=== PATIENT | female | born 1990 | race Caucasian/White ===

== ENCOUNTER 2019-10-05 11:41 | Emergency (ER) | payer SELFPAY ==
[2019-10-05 11:55] VITALS: BP 133/79; PULSE 89; RESP 18; TEMP 37.5; O2SAT 100
--- NOTE | 2019-10-05 12:00 | ED.URI ---
HPI - URI/Sore Throat General Chief Complaint: Upper Respiratory Infection Stated Complaint: COUGH/SORE THROAT/EAR PN Time Seen by Provider: 10/05/19 12:00 Source: patient and RN notes reviewed Mode of arrival: ambulatory Limitations: no limitations History of Present Illness HPI Narrative: 28-year-old female presents with concern for sore throat, cough, sinus congestion, rhinorrhea, fever, sweats, chills, body aches, bilateral ear pain that started on Friday morning. Reports she has been taking [id number] Sudafed and Robitussin elicited complaint: cough Related Data Allergies Allergy/AdvReac Type Severity Reaction Status Date / Time fluconazole [From Diflucan] Allergy Rash Verified 10/05/19 12:01 Review of Systems Review of Systems: Narrative: CONSTITUTIONAL: Reports malaise, chills, sweats, and fever. EYES: Denies visual changes, redness, or discharge. ENT: Reports rhinorrhea, congestion, otalgia and sore throat. CARDIOVASCULAR: Denies chest pain, palpitations, or edema. RESPIRATORY: Reports cough. Denies dyspnea. GASTROINTESTINAL: Denies abdominal pain, nausea, vomiting, diarrhea SKIN: Denies rash or itching. MUSCULOSKELETAL: Reports myalgia. NEUROLOGIC: Reports headache. All systems reviewed & are unremarkable except as noted in HPI and below PMFSH Comments At time of signature, agree with nursing past medical, surgical, social and family history. There is no relevant family history pertinent to the presenting complaint Exam Narrative: Exam Narrative: GENERAL: Well-appearing, well-nourished, and in no acute distress. HEAD: Normocephalic EYES: PERRLA, conjunctivae clear ENT: Nares clear, turbinates edematous and erythematous, clear discharge. Mucous membranes moist. TM pearly lewis with dull light reflex bilaterally; no tragal tenderness. Oropharynx erythematous without lesions. Tonsils not enlarged and without exudate, no drooling, no hoarseness, no trismus. NECK: Supple. No lymphadenopathy CHEST: Clear to auscultation, breath sounds equal. No wheezing, rhonchi, rales, or stridor. No respiratory distress, speaks in full sentences. Cough noted HEART: Regular rate and rhythm. No murmur heard. Normal peripheral pulses. SKIN: Warm, dry, no rash. NEURO: Alert and oriented x3. PSYCH: Normal mood and affect Course Course Emergency Course: Patient is aware of diagnosis, understands and agrees to treatment plan. Anticipatory guidance given. Patient agrees to follow-up as directed and is aware of reasons to seek care at the emergency department. Portions of this record may have been created with voice recognition software Vital Signs Vital signs: Vital Signs Temperature 99.5 F 10/05/19 11:55 Pulse Rate 89 10/05/19 11:55 Respiratory Rate 18 10/05/19 11:55 Blood Pressure 133/79 10/05/19 11:55 Pulse Oximetry 100 10/05/19 11:55 Temperature 99.5 F 10/05/19 11:55 Pulse Rate 89 10/05/19 11:55 Respiratory Rate 18 10/05/19 11:55 Blood Pressure 133/79 10/05/19 11:55 Pulse Oximetry 100 10/05/19 11:55 Reviewed. MDM - URI/Sore Throat MDM Narrative Medical decision making narrative: Differential diagnosis considered: Strep pharyngitis, allergic rhinitis, upper respiratory tract infection, sinusitis, rhinosinusitis, nasopharyngitis. viral pharyngitis, otitis media, otitis externa, pneumonia, bronchitis, viral cough syndrome, viral syndrome, and influenza. Exam findings show no acute concerns or changes; patient is non-toxic appearing and is in no distress. Patient is appropriate for outpatient treatment and follow-up. Lab Data Attestation: I reviewed the patient's lab results. Labs: Influenza A Screen Positive Reference Range: Negative Influenza B Screen Negative Reference Range: Negative Strep Screen Presumptive Negative *(Reference Range: Negative)* Critical Care Time Critical Care Time Critical Care Time: No Discharg
== END 2019-10-05 12:17 | disposition home or self-care (01) ==
PROVIDERS: Emergency Provider Nurse Practitioner
DX: J10.1 Influenza due to other identified influenza virus with other respiratory manifestations (principal)
CPT/HCPCS: 87081; 87804; 87880; 99213; G0463

== ENCOUNTER 2021-08-06 12:32 | Emergency (ER) | payer SELFPAY ==
--- NOTE | ~2021-08-06 | XR_ITS ---
XR ankle RT min 3V 08/06/2021 12:59 INDICATION: Right ankle pain PROCEDURE: 4 views right ankle COMPARISON: No prior studies for comparison. FINDINGS: Fracture, dislocation or subluxation is not identified. Ankle mortise intact. The soft tiss ues appear within normal limits. No foreign bodies are identified. IMPRESSION: 1: NO ACUTE BONE OR JOINT ABNORMALITY IDENTIFIED. Reviewed, dictated and finalized at location A. D INSTRUCTOR
[2021-08-06 12:45] VITALS: BP 144/84; PULSE 82; RESP 18; TEMP 36.2; O2SAT 99
--- NOTE | 2021-08-06 13:02 | ED.LOWEXIN ---
HPI - Extremity Injury (Lower) General Chief Complaint: Extremity Injury, Lower Stated Complaint: rt ankle injury Time Seen by Provider: 08/06/21 12:45 Source: patient and RN notes reviewed Mode of arrival: ambulatory Limitations: no limitations History of Present Illness HPI Narrative: 30-year-old female presents to the [facility] with complaints of right ankle pain since yesterday. Patient reports that she stepped in a hole and twisted her ankle. Has taken Tylenol Motrin. Related Data Allergies Allergy/AdvReac Type Severity Reaction Status Date / Time fluconazole [From Diflucan] Allergy Rash Verified 08/06/21 12:48 Review of Systems Review of Systems: All systems reviewed & are unremarkable except as noted in HPI and below Constitutional: Constitutional: Reports no additional constitutional complaints, Denies chills and Denies fever(s) Eyes: Eyes: Reports no additional eye complaints ENT: Reports system reviewed and no additional complaints, except as documented Cardiovascular: Cardiovascular: Reports no additional cardiovascular complaints Respiratory: Respiratory: Reports no additional respiratory complaints Musculoskeletal: Musculoskeletal: Reports as per HPI and Reports arthralgias (Right lateral and medial ankle) Integumentary/Breasts: Skin/Breast: Reports system reviewed and no additional complaints, except as docu and Denies rash Neurologic: Reports system reviewed and no additional complaints, except as documented, Denies vertigo, Denies dizziness, Denies syncope, Denies focal weakness, Denies numbness and Denies weakness Psychiatric: Psychiatric: Reports no additional psychiatric complaints Allergic/Immunologic: Allergic/Immunologic: Reports no additional allergic/immunologic complaints PMFSH Past Medical History Medical History (Updated 08/06/21 @ 15:30 by Mayra Pritchett) No significant medical problems Surgical History Surgical History (Updated 08/06/21 @ 15:30 by Mayra Pritchett) No significant past surgical history Social History Social History (Updated 08/06/21 @ 15:30 by Mayra Pritchett) Living arrangements: with family Occupation/Education: occupation Additional occupation/education comments: [employer] Gender identity (if verbalized by the patient): Female Comments At the time of my signature, I reviewed and agree with the nursing past medical, surgical, social, and family history. There is no relevant family history pertinent to the patient complaint. Exam Const: General: healthy appearing, no acute distress and alert Nutritional Appearance: well nourished and obese Orientation/consciousness: patient oriented x3 Limitations: no limitations HENMT: Head: normal to inspection Ears: external ears normal Eyes: Pupils: Equal, round and reactive pupils present Neck: Neck: normal visual inspection, no lymphadenopathy and no meningeal signs Chest: Chest palpation & inspection: normal inspection of the chest Resp: Effort & Inspection: normal respiratory effort Auscultation: clear to auscultation bilaterally Cardio: Rate: regular rate Rhythm: regular rhythm Back/Spine/Pelvis: Back: no CVA tenderness Skin: General skin exam: normal color Rashes: no rashes Wounds: no wounds Neuro: General: patient oriented x3, moves all extremities, no meningeal signs and no focal motor deficits Speech: normal speech Gait exam (Neuro): Normal gait present (Was able to walk out of clinic with a steady gait) Extrem: General: normal to inspection, full ROM and capillary refill normal Right lower extremity: ankle Details: tenderness Location: of the lateral malleolus and of the medial malleolus, no edema and normal ROM; no swelling, no unusual warmth and no ecchymosis Psych: Appearance: grossly normal and well kempt Mental Status: mental status grossly normal Affect: normal affect Attitude: cooperative Thought content: Yes Normal thought content present Course
== END 2021-08-06 13:28 | disposition home or self-care (01) ==
PROVIDERS: Emergency Provider Nurse Practitioner
DX: S93.401A Sprain of unspecified ligament of right ankle, initial encounter (principal); S96.911A Strain of unspecified muscle and tendon at ankle and foot level, right foot, initial encounter; X50.9XXA Other and unspecified overexertion or strenuous movements or postures, initial encounter
CPT/HCPCS: 73610; 99213; G0463

== ENCOUNTER 2025-04-14 09:27 | Observation (INO) | payer OTHER, SELFPAY ==
[2025-04-14] VITALS (14 sets, daily range): BP systolic 124–128; BP diastolic 48–70; PULSE 94–117; O2SAT 96–98
--- OUTSIDE RECORDS SUMMARY | 2025-04-14 09:41 | XMS_ITS | Encounter Summary ---
Author Organization [facility] Address [address] [place] [address] Care Team Providers Care Informix Developer Name Role Phone Ryan Pritchard MD Primary Care Provider [phone] Encounter Details Date Type Department Care Team (Late st Contact Info) Description 01/14/2001 Outpatient Historical [facility] [address] [place] [address] Hayley Barth Social History Tobacco Use Types Packs/Day Years Used Date Smoking Tobacco: Never Assessed Comments Unknown Sex and Gender Information Value Date Recorded Sex Assigned at Not on file Legal Sex Female 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 [address] [place] [address] PCP - General Family Practice 02/02/10 documented as of this encounter
--- OUTSIDE RECORDS SUMMARY | 2025-04-14 09:41 | XMS_ITS | Encounter Summary ---
Author Organization [facility] Address 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
--- OUTSIDE RECORDS SUMMARY | 2025-04-14 09:41 | XMS_ITS | Encounter Summary ---
Author Organization [facility] Address [address] [place] [address] Care Team Providers Care Business Development Coordinator Name Role Phone Ryan Pritchard MD Primary Care Provider [phone] Encounter Details Date Type Department Care Team (Late st Contact Info) Description 11/10/2003 Outpatient Historical [facility] - [place] [address] [place] [address] Magen Ag, DO * Social History Tobacco Use Types Packs/Day Years Used Date Smoking Tobacco: Never Assessed Comments Unknown Sex and Gender Information Value Date Recorded Sex Assigned at Not on file Legal 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
--- OUTSIDE RECORDS SUMMARY | 2025-04-14 09:41 | XMS_ITS | Encounter Summary ---
Author Organization [facility] Address [address] [place] [address] Care Team Providers Care Heel Buffer Name Role Phone Ryan Pritchard MD Primary Care Provider [phone] Encounter Details Date Type Department Care Team (Late st Contact Info) Description 10/05/2002 Outpatient Historical [facility] Primary Care - [place] [address] [place] [address] Magen Ag, DO * Social History Tobacco Use Types Packs/Day Years Used Date Smoking Tobacco: Never Assessed Comments Unknown Sex and Gender Information Value Date Recorded Sex Assigned at Not on file Legal Sex Female 4:[address]FFIC CONTROL TECHNICIAN Gender Identity Not on file Sexual Orientation Not on file documented as of this encounter Plan of Treatment Not on file documented as of this encounter Visit Diagnoses Not on filedocumented in this encounter Care Teams Heel Buffer Relationship Specialty Start Date End Date Ryan Pritchard MD [address] [place] [phone] PCP - General Family Practice 02/02/10 documented as of this encounter
--- OUTSIDE RECORDS SUMMARY | 2025-04-14 09:41 | XMS_ITS | Encounter Summary ---
Author Organization [facility] Address [address] [place] [address] Care Team Providers Care Urban Planning Professor Name Role Phone Ryan Pritchard MD Primary Care Provider [phone] Encounter Details Date Type Department Care Team (Late st Contact Info) Description 12/21/2002 Outpatient Historical [facility] Primary Care - [place] [address] [place] [address] Magen Ag, DO * Social History Tobacco Use Types Packs/Day Years Used Date Smoking Tobacco: Never Assessed Comments Unknown Sex and Gender Information Value Date Recorded Sex Assigned at Not on file Legal Sex Female 4:47 AM POLITICAL ADVISOR Gender Identity Not on file Sexual Orientation Not on file documented as of this encounter Plan of Treatment Not on file documented as of this encounter Visit Diagnoses Not on filedocumented in this encounter Care Teams Urban Planning Professor Relationship Specialty Start Date End Date Ryan Pritchard MD [address] [place] [phone] PCP - General Family Practice 02/02/10 documented as of this encounter
--- OUTSIDE RECORDS SUMMARY | 2025-04-14 09:41 | XMS_ITS | Clinical Summary ---
Author Organization [facility] Address [address] [place] [address] Care Team Providers Care Window/Distribution Clerk Name Role Phone Unavailable Primary Care Provider Unavailabl e Source Comments [facility],non-owned Affiliates and Associated Physician Practices is amultiple site organization consisting of ambulatory clinics and hospital sitesin [place], [place], [place] and [place]. This disclosure is being madepursuant to the Care Everywhere program and may not contain all information available regarding this patient. Last updated 18.[facility] Allergies Active Allergy Reactions Criticality Noted Date Comments Fluconazole 03/10/2009 Medications * Be aware that medications may not be up to date on this document. Alwaysverify current medications with the patient. amoxicillin (AMOXIL) 500 MG tablet Take 1 Tab by mouth 2 times daily. 20 0 03/04/2009 Active cetirizine (ZYRTEC) 10 MG tablet Take 10 mg by mouth daily. Active ciprofloxacin (CIPRO) 500 MG tablet Take 1 Tab by mouth every 12 hours. 20 0 03/11/2009 Active neomycin-polymy quinton-hc (CORTISPORIN) 3.5-38607-8 otic suspension Instill 4 Drops into right ear 4 times daily. 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 03/07/2025 resulting from ass isted reproductive technology in second trimester: IUI 03/07/2025 Allergic rhinitis 03/10/2009 Overview (05/18/2015): Asthma 03/10/2009 Estimated Date of Delivery Comme nts Yes 07/18/2025 Based on Ultraso und Encounters Date Type Department Care Team Description 04/04/2025 2:30 PM CDT - 04/04/2025 11:59 PM CDT Hospital Encounter [facility] [address] [place] [address] Joanna Mendiola MD Discharge Disposition: Home or Self Care 03/07/2025 9:00 AM CDT - 03/07/2025 11:59 PM CDT Hospital Encounter [facility] [address] [place] [address] Stephy Wilson MD Discharge Disposition: Home or Self Care from Last 3 Months Social History Tobacco Use Types Packs/Day Years Used Date Smoking Tobacco: Never Alcohol Use Standard Drinks/Week Comments No 0 (1 standard drink = 0.6 oz pur e alcohol) Estimated Date of Delivery Comme nts Yes 07/18/2025 Based on Ultraso und Sex and Gender Information Value Date Recorded Sex Assigned at Not on file Legal Sex Female 4:23 AM HOUSE SITTER Gender Identity Not on file Sexual Orientation Not on file Last Filed Vital Signs Vital Sign Reading Time Taken Comments Blood Pressure 108/78 03/11/2009 8:38 AM CDT Pulse 96 03/11/2009 8:38 AM CDT Temperature 36.5 C (97.7 F) 03/11/2009 8:38 AM CDT Respiratory Rate - - Oxygen Saturation - - Inhaled Oxygen Concentration - - Weight 106.9 kg (235 lb 9.6 oz) 03/11/2009 8:38 AM CDT Height 162.6 cm (5' 4) 03/11/2009 8:38 AM CDT Body Mass Index 40.44 03/11/2009 8:38 AM CDT Plan of Treatment Upcoming Encounters Date Type Department Care Team (Late st Contact Info) Description 05/02/2025 2:30 PM CDT Appointment [facility] [address] [place] [phone] Health Maintenance Due Date Last Done Comments HIV SCREENING 12/28/2003 HEPATITIS C SCREENING 12/23/2006 DTAP/TDAP/TD VACCINES (1 - Tdap) 12/28/2007 HEPATITIS B VACCINE (1 of 3 - 19+ 3-dose series) 12/28/2007 PNEUMOCOCCAL VACCINE (1 of 2 - PCV) 12/28/2007 PAP SMEAR 2009 HPV VACCINE (1 - 3-dose SCDM series) 12/28/2015 COVID-19 VACCINE (3 - 2023-2 5 season) 2024 06/16/2021, 05/26/2021 DEPRESSION SCREENING 08/18/2024 OB-ONE HOUR GLUCOSE 04/11/2025 INFLUENZA VACCINE (#1) 2025 OB-TDAP CURRENT 04/18/2025 OB-RHOGAM INJECTION 04/25/2025 Respiratory Syncytial Virus (RSV) Vaccine Pt: or over 60 yrs (1 - Risk 1-dose series) 05/23/2025 ZOSTER VACCINE (1 of 2) 2038 HIB VACCINE Aged Out No longer eligi ble based on patient's age to complete this topic MENINGOCOCCAL (Group B) VACCINE SHARED DECISION-MAKING Aged Out No longer eligible based on patient's age to complete this topic MENINGOCOCCAL GROUPS A/C/Y/W VACCINE Aged Out No longer eligible b ased on patient's age to complete this topic Procedures Procedure Name Priority Date/Time Associated Diagnosis Comments SONOGRAM - COMPLETE Routine 04/04/2025 2:47 PM CDT Advanced maternal age, 1st , second trimester (HCC) resulting from assisted reproductive technology in second trimester: IUI Encounter for follow-up ultrasound of anatomy (HCC) Encounter for ultrasound to assess growth (HCC) SONOGRAM - COMPLETE Routine 03/07/2025 9:15 AM CDT Encounter for anatomic survey (HCC) resulting from in vitro fertilization in second trimester (HCC) Obesity affecting in second trimester, unspecified obesity type (HCC) Multigravida of advanced maternal age in second trimester (HCC) from Last 3 Months Results * Sonogram - Complete (04/04/2025 2:47 PM CDT) Only the most recent of2 resultswithin the time period is included. Linked Results Indication ======== Encounter for screening for malformations resulting from assisted reproductive technique Advanced maternal age (AMA), primigravida Obesity complicating , Class 3 - BMI of 40.0 or greater Maternal Assessment Physical Exam Height 163 cm, 5 ft 4 in. Weight 132 kg, 290 lb. Initial weight 131 kg, 289 lb. BMI 49.78 kg/m . Initial BMI 49.61 kg/m . Weight gain 0 kg, 1 lb Method ====== Transabdominal ultrasound. View: limited secondary to challenging acoustic properties ========= Huang . Number of fetuses: 1 Dating ====== Date Details Gest. age SHILPA Stated SHILPA 25 w + 0 d 07/18/2025 U/S 04/04/2025 based upon AC, BPD, Femur, HC 26 w + 4 d 07/07/2025 Assigned dating based on stated SHILPA, selected on 03/07/2025 25 w + 0 d 07/18/2025 General Evaluation Cardiac activity present. FHR 138 bpm. Presentation: breech Placenta: Placental site: anterior Umbilical cord: 3-vessel cord and normal placental cord insertion site were documented previously Amniotic fluid: Amount of AF: normal. MVP 4.5 cm Biometry BPD 66.1 mm 26w 5d 90% Hadlock HC 242.1 mm 26w 2d 75% Hadlock Cerebellum tr 29.4 mm 88% [place] AC 227.2 mm 27w 1d 93% Hadlock Femur 47.5 mm 25w 6d 64% Hadlock Humerus 45.7 mm 27w 0d 94% Martinez HC / AC 1.07 Weight Calculation: EFW 954 g 95% Hadlock EFW (lb,oz) 2 lb 2 oz EFW by Hadlock ([id number]) Head / Face / Neck Biometry: CM 8.7 mm 97% Nicolaides LGA Growth Overview Exam date GA BPD (mm) HC (mm) AC (mm) FL (mm) HL (mm) EFW (g) 03/07/2025 21w 0d 51.5 73% 183.6 29% 171.9 79% 39.7 92% 35.2 82% 487 95% 04/04/2025 25w 0d 66.1 90% 242.1 75% 227.2 93% 47.5 64% 45.7 94% 954 95% Anatomy The following structures appear normal: Head / Neck Cranium. Midline falx. Cavum septi pellucidi. Cerebellum. Cisterna magna. Thalami. Face Lips. Profile. Nose. Nasal bone. Orbits. Heart / Thorax LVOT view. 3-vessel view. Aortic arch view. Abdomen Stomach. Kidneys. Bladder. Spine Cervical spine. Thoracic spine. Lumbar spine. Sacral spine. Extremities / Skeleton Hands. Left arm. Right foot. The following structures could not be adequately visualized: Heart / Thorax RVOT view. 6-[id number]-wfklqjw view. Bicaval view. Ductal arch view. Great vessels. Right lung. Left lung. Diaphragm. The following structures were documented previously: Head / Neck Lateral ventricles. Choroid plexus. Heart / Thorax 4-chamber view. Situs. Abdomen Cord insertion. Bowel. Genitals. Extremities / Skeleton Arms. Right arm. Legs. Left foot. Impression ========= 1) Huang gestation, 25w0d 2) Today's biometry may be evidence of accelerated growth 3) The amniotic fluid volume is within normal limits 4) No abnormalities have been detected on anatomic survey 5) Imaging of a portion of the anatomy (see list above) was again suboptimal, secondary to maternal acoustic properties and positioning Comment ======== ultrasound alone cannot detect all structural, genetic, or functional , placental, or maternal abnormalities Follow-up ======== Follow-up ultrasound in ~4 weeks to complete the anatomic survey and reevaluate growth Coding ====== Diagnoses O09.512: Supervision of elderly primigravida Procedures 79230: US Preg Uterus Follow Up New[place]ired PACS Anatomical Region Laterality Modality Other 04/04/2025 2:47 PM CDT Foster Dudley MD [facility] ORDERABLES Edited Result - Final from Last 3 Months Insurance COUNTS INCLUDE 234 BEDS AT THE [facility] Address: [facility] [id number] [place] [phone]
--- OUTSIDE RECORDS SUMMARY | 2025-04-14 09:41 | XMS_ITS | Encounter Summary ---
Author Organization [facility] Address [address] [place] [address] Care Team Providers Care Ship Joiner Name Role Phone Ryan Pritchard MD Primary Care Provider [phone] Encounter Details Date Type Department Care Team (Late st Contact Info) Description 10/29/2000 Outpatient Historical 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 [place] [address] PCP - General Family Practice 02/02/10 documented as of this encounter
--- OUTSIDE RECORDS SUMMARY | 2025-04-14 09:41 | XMS_ITS | Encounter Summary ---
Author Organization [facility] Address 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
--- OUTSIDE RECORDS SUMMARY | 2025-04-14 09:41 | XMS_ITS | Encounter Summary ---
Author Organization [facility] Address [address] [place] [address] Care Team Providers Care Pilot Boat Captain Name Role Phone Ryan Pritchard MD Primary Care Provider [phone] Encounter Details Date Type Department Care Team (Late st Contact Info) Description 12/09/2002 Outpatient Historical [facility] Primary Care - [place] [address] [place] [address] Magen Ag, DO * Social History Tobacco Use Types Packs/Day Years Used Date Smoking Tobacco: Never Assessed Comments Unknown Sex and Gender Information Value Date Recorded Sex Assigned at Not on file Legal Sex Female 4:47 AM VOUCHER EXAMINER Gender Identity Not on file Sexual Orientation Not on file documented as of this encounter Plan of Treatment Not on file documented as of this encounter Visit Diagnoses Not on filedocumented in this encounter Care Teams Pilot Boat Captain Relationship Specialty Start Date End Date Ryan Pritchard MD [address] [place] [address] PCP - General Family Practice 02/02/10 documented as of this encounter
--- OUTSIDE RECORDS SUMMARY | 2025-04-14 09:41 | XMS_ITS | Encounter Summary ---
Author Organization [facility] Address [address] [place] [address] Care Team Providers Care Petroleum Refinery Laborer Name Role Phone Ryan Pritchard MD Primary Care Provider [phone] Encounter Details Date Type Department Care Team (Late st Contact Info) Description 03/23/2002 Outpatient Historical [facility] Primary Care - [place] [address] [place] [address] Magen Ag, DO * Social History Tobacco Use Types Packs/Day Years Used Date Smoking Tobacco: Never Assessed Comments Unknown Sex and Gender Information Value Date Recorded Sex Assigned at Not on file Legal Sex Female 4:47 AM DUMP GRADER Gender Identity Not on file Sexual Orientation Not on file documented as of this encounter Plan of Treatment Not on file documented as of this encounter Visit Diagnoses Not on filedocumented in this encounter Care Teams Petroleum Refinery Laborer Relationship Specialty Start Date End Date Ryan Pritchard MD [address] [place] [address] PCP - General Family Practice 02/02/10 documented as of this encounter
--- OUTSIDE RECORDS SUMMARY | 2025-04-14 09:41 | XMS_ITS | Encounter Summary ---
Author Organization [facility] Address [address] [place] [address] Care Team Providers Care Brewery Worker Name Role Phone Ryan Pritchard MD Primary Care Provider [phone] Encounter Details Date Type Department Care Team (Late st Contact Info) Description 08/01/2003 Outpatient Historical [facility] Primary Care - [place] [address] [place] [phone] No Santos MD NO ADDRESS ON FILE Social History Tobacco Use Types Packs/Day Years Used Date Smoking Tobacco: Never Assessed Comments Unknown Sex and Gender Information Value Date Recorded Sex Assigned at Not on file Legal Sex Female 4:[address] TECHNICIAN Gender Identity Not on file Sexual Orientation Not on file documented as of this encounter Plan of Treatment Not on file documented as of this encounter Visit Diagnoses Not on filedocumented in this encounter Care Teams Brewery Worker Relationship Specialty Start Date End Date Ryan Pritchard MD [address] [place] [address] PCP - General Family Practice 02/02/10 documented as of this encounter
--- OUTSIDE RECORDS SUMMARY | 2025-04-14 09:41 | XMS_ITS | Encounter Summary ---
Author Organization [facility] Address [address] [place] [address] Care Team Providers Care Weight Analyst Name Role Phone Ryan Pritchard MD Primary Care Provider [phone] Encounter Details Date Type Department Care Team (Late st Contact Info) Description 07/23/2004 Outpatient Historical [facility] Primary Care - [place] [address] [place] [address] Magen Ag, DO * Social History Tobacco Use Types Packs/Day Years Used Date Smoking Tobacco: Never Assessed Comments Unknown Sex and Gender Information Value Date Recorded Sex Assigned at Not on file Legal Sex Female 4:47 AM ACCESS SPEC Gender Identity Not on file Sexual Orientation Not on file documented as of this encounter Plan of Treatment Not on file documented as of this encounter Visit Diagnoses Not on filedocumented in this encounter Care Teams Weight Analyst Relationship Specialty Start Date End Date Ryan Pritchard MD [address] [place] [address] PCP - General Family Practice 02/02/10 documented as of this encounter
--- OUTSIDE RECORDS SUMMARY | 2025-04-14 09:41 | XMS_ITS | Encounter Summary ---
Author Organization [facility] Address [address] [place] [address] Care Team Providers Care Clinical Investigator Name Role Phone Ryan Pritchard MD Primary Care Provider [phone] Encounter Details Date Type Department Care Team (Late st Contact Info) Description 03/15/2002 Outpatient Historical [facility] Primary Care - [place] [address] [place] [address] Magen Ag, DO * Social History Tobacco Use Types Packs/Day Years Used Date Smoking Tobacco: Never Assessed Comments Unknown Sex and Gender Information Value Date Recorded Sex Assigned at Not on file Legal Sex Female 4:47 AM PACKAGING TECH Gender Identity Not on file Sexual Orientation Not on file documented as of this encounter Plan of Treatment Not on file documented as of this encounter Visit Diagnoses Not on filedocumented in this encounter Care Teams Clinical Investigator Relationship Specialty Start Date End Date Ryan Pritchard MD [address] [place] [address] PCP - General Family Practice 02/02/10 documented as of this encounter
--- OUTSIDE RECORDS SUMMARY | 2025-04-14 09:41 | XMS_ITS | Encounter Summary ---
Author Organization [facility] Address [address] [place] [address] Care Team Providers Care Automotive Professional Name Role Phone Ryan Pritchard MD Primary Care Provider [phone] Encounter Details Date Type Department Care Team (Late st Contact Info) Description 12/05/[address] [facility] Primary Care - [place] [address] [place] [address] Magen Ag, DO * Social History Tobacco Use Types Packs/Day Years Used Date Smoking Tobacco: Never Assessed Comments Unknown Sex and Gender Information Value Date Recorded Sex Assigned at Not on file Legal Sex Female 4:47 AM MANAGER INTERMEDIATE Gender Identity Not on file Sexual Orientation Not on file documented as of this encounter Plan of Treatment Not on file documented as of this encounter Visit Diagnoses Not on filedocumented in this encounter Care Teams Automotive Professional Relationship Specialty Start Date End Date Ryan Pritchard MD [address] [place] [address] PCP - General Family Practice 02/02/10 documented as of this encounter
--- OUTSIDE RECORDS SUMMARY | 2025-04-14 09:41 | XMS_ITS | Encounter Summary ---
Author Organization [facility] Address [address] [place] [address] Care Team Providers Care Behavioral Health Professional Name Role Phone Ryan Pritchard MD Primary Care Provider [phone] Encounter Details Date Type Department Care Team (Late st Contact Info) Description 05/12/2001 Outpatient Historical [facility] [address] [place] [address] Hayley Barth Social History Tobacco Use Types Packs/Day Years Used Date Smoking Tobacco: Never Assessed Comments Unknown Sex and Gender Information Value Date Recorded Sex Assigned at Not on file Legal Sex Female 4:47 AM SEQUINS SPOOLER Gender Identity Not on file Sexual Orientation Not on file documented as of this encounter Plan of Treatment Not on file documented as of this encounter Visit Diagnoses Not on filedocumented in this encounter Care Teams Behavioral Health Professional Relationship Specialty Start Date End Date Ryan Pritchard MD [address] [place] [address]. [address] [place] [address] PCP - General Family Practice 02/02/10 documented as of this encounter
--- OUTSIDE RECORDS SUMMARY | 2025-04-14 09:41 | XMS_ITS | Encounter Summary ---
Author Organization [facility] Address [address] [place] [address] Care Team Providers Care Commercial Real Estate Paralegal Name Role Phone Ryan Pritchard MD Primary Care Provider [phone] Encounter Details Date Type Department Care Team (Late st Contact Info) Description 08/06/[address] [facility] Primary Care - [place] [address] [place] [address] Magen Ag, DO * Social History Tobacco Use Types Packs/Day Years Used Date Smoking Tobacco: Never Assessed Comments Unknown Sex and Gender Information Value Date Recorded Sex Assigned at Not on file Legal Sex Female 4:47 AM CLINICAL RESEARCH ASSOCIATE Gender Identity Not on file Sexual Orientation Not on file documented as of this encounter Plan of Treatment Not on file documented as of this encounter Visit Diagnoses Not on filedocumented in this encounter Care Teams Commercial Real Estate Paralegal Relationship Specialty Start Date End Date Ryan Pritchard MD [address] [place] [address] PCP - General Family Practice 02/02/10 documented as of this encounter
--- OUTSIDE RECORDS SUMMARY | 2025-04-14 09:41 | XMS_ITS | Encounter Summary ---
Author Organization [facility] Address [address] [place] [address] Care Team Providers Care Tire Recapping Machine Operator Name Role Phone Ryan Pritchard MD Primary Care Provider [phone] Encounter Details Date Type Department Care Team (Late st Contact Info) Description 12/14/2002 Outpatient Historical [facility] Primary Care - [place] [address] [place] [address] Magen Ag, DO * Social History Tobacco Use Types Packs/Day Years Used Date Smoking Tobacco: Never Assessed Comments Unknown Sex and Gender Information Value Date Recorded Sex Assigned at Not on file Legal Sex Female 4:47 AM LAWN CARE WORKER Gender Identity Not on file Sexual Orientation Not on file documented as of this encounter Plan of Treatment Not on file documented as of this encounter Visit Diagnoses Not on filedocumented in this encounter Care Teams Tire Recapping Machine Operator Relationship Specialty Start Date End Date Ryan Pritchard MD [address] [place] [address] PCP - General Family Practice 02/02/10 documented as of this encounter
--- OUTSIDE RECORDS SUMMARY | 2025-04-14 09:41 | XMS_ITS | Clinical Summary ---
Author Organization [employer] [facility] [facility] Address [address] [place] [address] Phone Care Team Providers Care Alcohol Law Enforcement Agent Name Role Phone Ryan Pritchard MD Primary Care Provider [phone] Allergies Active Allergy Reactions Criticality Noted Date Comments Fluconazole Rash Low 02/02/2010 Medications albuterol sulfate (PROAIR HFA) 90 mcg/Actuation inhalerIndicati ons:Cough Take 2 Puffs by inhalation every 6 hours as needed for Shortness of Breath. 8.5 Gram 0 5 Active loratadine-pseu doephedrine (CLARITIN-D) 10-240 mg Extended Release 24 hour tablet Take 1 Tab by mouth daily. Active diphenhydrAMINE (BENADRYL) 25 mg tablet Take 25 mg by mouth every 6 hours as needed for Allergies. Active fluticasone (FLONASE) 50 mcg/spray [place], Suspension Administer 2 Sprays in each nostril daily. 16 Gram 1 5 Active Active Problems Problem Noted Date Diagnosed Date Obesity 03/28/2010 Resolved Problems Problem Noted Date Diagnosed Date Resolved Date Cellulitis due to methicilli n-resistant Staphylococcus aureus (MRSA) 02/05/2010 04/10/2012 Immunizations Immunization Administration Dates Next Due (INFANRIX)(6 WKS-6 YRS) DIPT HERIA, TETANUS TOXOIDS, AND ACCELLULAR PERTUSSIS VACCINE (DTAP), 0.5 ML IM 03/11/1994,07/03/1993,06/20/1989,1988,02/21/1989 (IPOL)(6 WKS AND UP) POLIOVI BARTOLOME VACCINE, INACTIVATED (IPV), 3 DOSE, SUBCUT OR IM 03/11/1994,07/03/1993,06/20/1989,1988 (M-M-R II/PRIORIX)(12 MO UP) MEASLES, MUMPS AND RUBELLA VIRUS VACCINE, 0.5 ML IM/SUBCUT 03/11/1994,04/01/1992 (TDVAX)(7 YRS UP) TETANUS AN D DIPHTHERIA TOXOIDS, ADSORBED (2 LF OF TETANUS TOXOID AND 2 LF OF DIPHTHERIA TOXOID), 0.5ML (PF), IM 12/19/2003 HIB, Unspecified Formulation 04/01/1992 Hepatitis B Vaccine 04/23/2002,03/22/2000,1999 Skin Test TB 05/05/2013 Family History Medical History Relation Name Comments Healthy Mother Relation Name Status Comments Mother Alive Social History Tobacco Use Types Packs/Day Years Used Date Smoking Tobacco: Never Alcohol Use Standard Drinks/Week Comments No 0 (1 standard drink = 0.6 oz pur e alcohol) Comments No Sex and Gender Information Value Date Recorded Sex Assigned at Not on file Legal Sex Female 4:47 AM GUM REMOVER Gender Identity Not on file Sexual Orientation Not on file Last Filed Vital Signs Vital Sign Reading Time Taken Comments Blood Pressure 118/78 12/23/2014 11:57 AM CDT Pulse 84 12/23/2014 11:57 AM CDT Temperature 36.6 C (97.8 F) 12/23/2014 11:57 AM CDT Respiratory Rate 16 06/22/2013 1:42 PM GUM REMOVER Oxygen Saturation 98% 12/23/2014 11:57 AM CDT Inhaled Oxygen Concentration - - Weight 122.9 kg (271 lb) 12/23/2014 11:57 AM CDT Height 160 cm (5' 3) 12/23/2014 11:57 AM CDT Body Mass Index 48.01 12/23/2014 11:57 AM CDT Plan of Treatment Health Maintenance Due Date Last Done Comments DTAP/TDAP/TD VACCINES (6 - Tdap) 12/20/2003 12/19/2003, 03/11/1994, 07/03/1993, Additional history exists HPV VACCINES (1 - 3-dose SCD M series) 12/28/2015 HPV/Cotest (21-29) 04/10/2017 04/10/2012 CERVICAL CANCER SCREENING 2018 HPV/Cotest (30-65) 2018 04/10/2012 PAP SMEAR 2018 04/10/2012 Preventative Visit- Commercial 08/18/2024 04/10/2012 , 03/15/2002 INFLUENZA VACCINE (#1) 2025 HEPATITIS B VACCINES Completed 04/23/2002, 03/22/2000, 02/15/2000 Procedures Procedure Name Priority Date/Time Associated Diagnosis Comments CERV/VAG CYTOPATH, THIN PREP IMAGR RFLX HPV Routine 04/10/2012 1:40 PM CDT from Last 3 Months or Most Recently Relevant to Health Maintenance Results * CERV/VAG CYTOPATH, THIN PREP IMAGR RFLX HPV (04/10/2012 1:40 PM CDT) CLINICAL INFORMATION [facility] Comment:Information not prov ided LAST MENSTRUAL PERIOD [facility] Comment:INFORMATION NOT PROV IDED PREV PAP: [facility] Comment:INFORMATION NOT PROV IDED PREV BX: [facility] [employer] [facility] Comment:INFORMATION NOT PROV IDED SOURCE [facility] Comment:[employer] ADEQUACY: [facility] [employer] [facility] Comment: Satisfactory for evaluation. Endocervical/transformation zone component present. Age and/or menstrual status not provided INTERPRETATION [facility] Comment:Negative for intraep ithelial lesion or malignancy. CYTOLOGY INFECTION [employer] [facility] Comment: Shift in vaginal hawk suggestive of bacterial vaginosis. COMMENT [facility] [employer] [facility] Comment: This Pap test has been evaluated with computer assisted technology. Based on the cytology result, reflex High Risk HPV DNA testing was not performed. FORENSIC PHOTOGRAPHER: [employer] [facility] Comment: MDG, CT(ASCP) Test Performed at: [facility] [address] [place] [address] KALI VENTURA DO 04/10/2012 1:40 PM CDT Ryan Pritchard MD PATHOLOGY/CYTOLOGY ORDERABLE S Final Result INTERFACE SYSTEM Refer to clinic/hospital department [facility] [address] [place] [address] from Last 3 Months or Most Recently Relevant to Health Maintenance Insurance [place] V[place] [id number] [facility] [id number] Care Teams Alcohol Law Enforcement Agent Relationship Specialty Start Date End Date Ryan Pritchard MD [address] [address] PCP - General Family Practice 02/02/10
--- OUTSIDE RECORDS SUMMARY | 2025-04-14 09:41 | XMS_ITS | Encounter Summary ---
Author Organization [facility] Address [address] [place] [address] Care Team Providers Care Criminalist Name Role Phone Ryan Pritchard MD Primary Care Provider [phone] Encounter Details Date Type Department Care Team (Late st Contact Info) Description 05/20/2003 Outpatient Historical [facility] Primary Care - [place] [address] [place] [address] No Santos MD NO ADDRESS ON FILE Social History Tobacco Use Types Packs/Day Years Used Date Smoking Tobacco: Never Assessed Comments Unknown Sex and Gender Information Value Date Recorded Sex Assigned at Not on file Legal Sex Female 4:47 AM OPERATOR CONTROL ROOM Gender Identity Not on file Sexual Orientation Not on file documented as of this encounter Plan of Treatment Not on file documented as of this encounter Visit Diagnoses Not on filedocumented in this encounter Care Teams Criminalist Relationship Specialty Start Date End Date Ryan Pritchard MD [address] [place] [address] PCP - General Family Practice 02/02/10 documented as of this encounter
--- OUTSIDE RECORDS SUMMARY | 2025-04-14 09:41 | XMS_ITS | Encounter Summary ---
Author Organization [facility] Address [address] [place] [address] Care Team Providers Care Bakery Products Checker Name Role Phone Ryan Pritchard MD Primary Care Provider [phone] Encounter Details Date Type Department Care Team (Late st Contact Info) Description 12/18/2004 Outpatient Historical [facility] Primary Care - [place] [address] [address] Magen Ag, DO * Social History Tobacco Use Types Packs/Day Years Used Date Smoking Tobacco: Never Assessed Comments Unknown Sex and Gender Information Value Date Recorded Sex Assigned at Not on file Legal Sex Female 4:47 AM COMIC ARTIST Gender Identity Not on file Sexual Orientation Not on file documented as of this encounter Plan of Treatment Not on file documented as of this encounter Visit Diagnoses Not on filedocumented in this encounter Care Teams Bakery Products Checker Relationship Specialty Start Date End Date Ryan Pritchard MD [address] [place] [address] PCP - General Family Practice 02/02/10 documented as of this encounter
--- OUTSIDE RECORDS SUMMARY | 2025-04-14 09:41 | XMS_ITS | Encounter Summary ---
Author Organization [facility] Address [address] [place] [address] Care Team Providers Care Radiographer Angiogram Name Role Phone Ryan Pritchard MD Primary Care Provider [phone] Encounter Details Date Type Department Care Team (Late st Contact Info) Description 08/30/2002 Outpatient Historical [facility] Primary Care - [place] [address] [place] [address] Magen Ag, DO * Social History Tobacco Use Types Packs/Day Years Used Date Smoking Tobacco: Never Assessed Comments Unknown Sex and Gender Information Value Date Recorded Sex Assigned at Not on file Legal Sex Female 4:47 AM BULK STATION AGENT Gender Identity Not on file Sexual Orientation Not on file documented as of this encounter Plan of Treatment Not on file documented as of this encounter Visit Diagnoses Not on filedocumented in this encounter Care Teams Radiographer Angiogram Relationship Specialty Start Date End Date Ryan Pritchard MD [address] [place] [address] PCP - General Family Practice 02/02/10 documented as of this encounter
--- OUTSIDE RECORDS SUMMARY | 2025-04-14 09:41 | XMS_ITS | Encounter Summary ---
Author Organization [facility] Address [address] [place] [address] Care Team Providers Care Ecmo Specialist Name Role Phone Ryan Pritchard MD Primary Care Provider [phone] Encounter Details Date Type Department Care Team (Late st Contact Info) Description 09/28/2003 Outpatient Historical [facility] Primary Care - [place] [address] [phone] No Santos MD NO ADDRESS ON FILE Social History Tobacco Use Types Packs/Day Years Used Date Smoking Tobacco: Never Assessed Comments Unknown Sex and Gender Information Value Date Recorded Sex Assigned at Not on file Legal Sex Female 4:47 AM FORK REPAIRER Gender Identity Not on file Sexual Orientation Not on file documented as of this encounter Plan of Treatment Not on file documented as of this encounter Visit Diagnoses Not on filedocumented in this encounter Care Teams Ecmo Specialist Relationship Specialty Start Date End Date Ryan Pritchard MD [address] [place] [phone] PCP - General Family Practice 02/02/10 documented as of this encounter
--- OUTSIDE RECORDS SUMMARY | 2025-04-14 09:41 | XMS_ITS | Encounter Summary ---
Author Organization [facility] Address [address] [place] [address] Care Team Providers Care Senior Account Clerk Name Role Phone Ryan Pritchard MD Primary Care Provider [phone] Encounter Details Date Type Department Care Team (Late st Contact Info) Description 09/13/2003 Outpatient Historical [facility] Primary Care - [place] [address] [place] [address] Magen Ag, DO * Social History Tobacco Use Types Packs/Day Years Used Date Smoking Tobacco: Never Assessed Comments Unknown Sex and Gender Information Value Date Recorded Sex Assigned at Not on file Legal Sex Female 4:47 AM MOTOR POOL DRIVER Gender Identity Not on file Sexual Orientation Not on file documented as of this encounter Plan of Treatment Not on file documented as of this encounter Visit Diagnoses Not on filedocumented in this encounter Care Teams Senior Account Clerk Relationship Specialty Start Date End Date Ryan Pritchard MD [address] [place] [phone] PCP - General Family Practice 02/02/10 documented as of this encounter
--- OUTSIDE RECORDS SUMMARY | 2025-04-14 09:41 | XMS_ITS | Encounter Summary ---
Author Organization [facility] Address [address] [place] [address] Care Team Providers Care Tool Room Lathe Operator Name Role Phone Ryan Pritchard MD Primary Care Provider [phone] Encounter Details Date Type Department Care Team (Late st Contact Info) Description 09/15/2003 Outpatient Historical [facility] Primary Care - [place] [address] [place] [address] No Santos MD NO ADDRESS ON FILE Social History Tobacco Use Types Packs/Day Years Used Date Smoking Tobacco: Never Assessed Comments Unknown Sex and Gender Information Value Date Recorded Sex Assigned at Not on file Legal Sex Female 4:47 AM HASSOCK MAKER Gender Identity Not on file Sexual Orientation Not on file documented as of this encounter Plan of Treatment Not on file documented as of this encounter Visit Diagnoses Not on filedocumented in this encounter Care Teams Tool Room Lathe Operator Relationship Specialty Start Date End Date Ryan Pritchard MD [address] [place] [phone] PCP - General Family Practice 02/02/10 documented as of this encounter
--- OUTSIDE RECORDS SUMMARY | 2025-04-14 09:41 | XMS_ITS | Encounter Summary ---
Author Organization [facility] Address [address] [place] [address] Care Team Providers Care Valet Parking Attendant Name Role Phone Ryan Pritchard MD Primary Care Provider [phone] Encounter Details Date Type Department Care Team (Late st Contact Info) Description 12/19/2003 Outpatient Historical [facility] Primary Care - [place] [address] [place] [address] No Santos MD NO ADDRESS ON FILE Social History Tobacco Use Types Packs/Day Years Used Date Smoking Tobacco: Never Assessed Comments Unknown Sex and Gender Information Value Date Recorded Sex Assigned at Not on file Legal Sex Female 4:47 AM REGIONAL FACILITIES SPECIALIST Gender Identity Not on file Sexual Orientation Not on file documented as of this encounter Plan of Treatment Not on file documented as of this encounter Visit Diagnoses Not on filedocumented in this encounter Care Teams Valet Parking Attendant Relationship Specialty Start Date End Date Ryan Pritchard MD [address] [place] [phone] PCP - General Family Practice 02/02/10 documented as of this encounter
--- OUTSIDE RECORDS SUMMARY | 2025-04-14 09:41 | XMS_ITS | Encounter Summary ---
Author Organization [facility] Address [address] [place] [address] Care Team Providers Care Regulatory Affairs Manager Name Role Phone Ryan Pritchard MD Primary Care Provider [phone] Encounter Details Date Type Department Care Team (Late st Contact Info) Description 07/04/2003 Outpatient Historical [facility] Primary Care - [place] [address] [place] [phone] No Santos MD NO ADDRESS ON FILE Social History Tobacco Use Types Packs/Day Years Used Date Smoking Tobacco: Never Assessed Comments Unknown Sex and Gender Information Value Date Recorded Sex Assigned at Not on file Legal Sex Female 4:47 AM VAT SKIMMER Gender Identity Not on file Sexual Orientation Not on file documented as of this encounter Plan of Treatment Not on file documented as of this encounter Visit Diagnoses Not on filedocumented in this encounter Care Teams Regulatory Affairs Manager Relationship Specialty Start Date End Date Ryan Pritchard MD [address] [place] [phone] PCP - General Family Practice 02/02/10 documented as of this encounter
--- OUTSIDE RECORDS SUMMARY | 2025-04-14 09:41 | XMS_ITS | Encounter Summary ---
Author Organization [facility] Address [address] [place] [address] Care Team Providers Care Director Dental Services Name Role Phone Ryan Pritchard MD Primary Care Provider [phone] Encounter Details Date Type Department Care Team (Late st Contact Info) Description 10/26/2003 Outpatient Historical [facility] Primary Care - [place] [address] [place] [phone] No Santos MD NO ADDRESS ON FILE Social History Tobacco Use Types Packs/Day Years Used Date Smoking Tobacco: Never Assessed Comments Unknown Sex and Gender Information Value Date Recorded Sex Assigned at Not on file 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
--- OUTSIDE RECORDS SUMMARY | 2025-04-14 09:41 | XMS_ITS | Encounter Summary ---
Author Organization [facility] Address [address] [place] [address] Care Team Providers Care Transitional Care Liaison Name Role Phone Ryan Pritchard MD Primary Care Provider [phone] Encounter Details Date Type Department Care Team (Latest Contact Info) Description 07/18/2005 Outpatient Historical [facility] [place] [address] [place] [phone] CONTUSION LEG NOS (Primary Dx) Social History Tobacco Use Types Packs/Day Years Used Date Smoking Tobacco: Never Assessed Comments Unknown Sex and Gender Information Value Date Recorded Sex Assigned at Not on file 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
--- OUTSIDE RECORDS SUMMARY | 2025-04-14 09:41 | XMS_ITS | Encounter Summary ---
Author Organization [facility] Address 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
--- OUTSIDE RECORDS SUMMARY | 2025-04-14 09:41 | XMS_ITS | Encounter Summary ---
Author Organization [facility] Address [address] [place] [address] Care Team Providers Care Supply Coordinator Name Role Phone Ryan Pritchard MD Primary Care Provider [phone] Encounter Details Date Type Department Care Team (Late st Contact Info) Description 10/06/2003 Outpatient Historical [facility] Primary Care - [place] 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 [place] [phone] PCP - General Family Practice 02/02/10 documented as of this encounter
--- NOTE | 2025-04-14 09:55 | PC.NURSE ---
Dr. Pereyra informed of this 26 wk gestation pt of Dr. Gusman's here with diarrhea since Friday. Pt's N&V has resolved. Pt failed her 1 hr GTT, but hasn't had her 3 hr yet. Orders received.
[2025-04-14] MEDS: LOPERAMIDE HCL 2 MG CAPSULE 4 MG PO (10:19)
[2025-04-14] MEDS: DEXTROSE 5%/LACTATED RINGERS 1,000 ML 999 ML IV CONT (10:20)
[2025-04-14 10:22] LABS: Hematocrit 37.4 % (37.0-47.0); Hemoglobin 12.3 g/dL (12.0-15.0); Immature Granulocyte Percent A 0.4 % (0-0.5); Lymphocytes Absolute Auto 0.73 K/mm3 (0.9-3.2); Mean Corpuscular HGB Conc 32.9 g/dl (32-36); Mean Corpuscular Hemoglobin 26.5 pg (26-34); Mean Corpuscular Volume 80.6 fl (80-100); Nucleated Red Blood Cells Absolute Auto 0.000 K/mm3 (0.0-0.012); Nucleated Red Blood Cells Perc 0.0 % (0.0-0.2); Platelet Count Result 221 k/mm3 (150-375); Red Blood Count 4.64 M/mm3 (4.2-5.4); White Blood Count 7.6 K/mm3 (4.5-10.0)
--- NOTE | 2025-04-14 10:28 | OBADM ---
This patient, Lindsey Adames, admitted to the OB room 116 for observation. Patient/family oriented to hospital policies and general routines including ID bracelet, bed and alarms, visiting hours, pain management, procedures, bathroom and other care routines, personal items, smoking policy, room service/diet, and visiting hours. Patient/Family are encouraged to report perceived risks to care and to ask questions if they do not understand what they are told or what they should do.
[2025-04-14 10:32] LABS: Add Urine Microscopic? YES; Appearance Urine Turbid (Clear); Glucose Urine UA Negative (Negative); Leukocyte Esterase Ur 1+ LEU/UL (Negative); Nitrate Urine Positive (Negative); Non Pathogenic Casts >20; Specific Grav Ur 1.030 (1.001-1.035)
[2025-04-14 10:37] LABS: Need Manual Microscopic Reviewed
[2025-04-14 10:43] LABS: Alanine Aminotransferase 34 U/L (6-35); Albumin Level 3.9 g/dL (3.5-5.1); Alkaline Phosphatase 74 U/L (38-126); Anion Gap 10 mmol/L (4-12); Aspartate Amino Transferase 29 U/L (14-36); Bilirubin,Total 0.8 mg/dL (0.2-1.3); Blood Urea Nitrogen 6 mg/dL (7-17); Calcium 9.1 mg/dL (8.4-10.2); Carbon Dioxide 19 mmol/L (22-30); Chloride 105 mmol/L (98-107); Estimated Glomerular Filt Rate > 60; Glucose 112 mg/dL (65-110); Potassium 3.0 mmol/L (3.4-5.0); Sodium 134 mmol/L (137-145); Total Protein 7.0 g/dL (6.3-8.2)
--- NOTE | 2025-04-14 11:06 | PC.NURSE ---
Dr. Pereyra informed of lab results, T's, pt not lindsay. Order for discharge received after IV fluids have infused.
--- NOTE | 2025-04-20 16:43 | P.PNOB_ITS ---
OB - Triage/Final Diagnosis Visit Information Comments/Additional reasons for admission: I have assessed the risk for this patient, Lindsey Adames, and determined that she would benefit from observation care. Evaluation Laboratory results: Laboratory Tests 04/14/25 10:06 WBC 7.6 RBC 4.64 Hgb 12.3 Hct 37.4 MCV 80.6 MCH 26.5 MCHC 32.9 RDW 14.6 H Plt Count 221 MPV 10.5 H Immature Gran % (Auto) 0.4 Neut % (Auto) 81.3 H Lymph % (Auto) 9.7 L Fajardo % (Auto) 7.8 Eos % (Auto) 0.7 Baso % (Auto) 0.1 L Lymph # (Auto) 0.73 L Fajardo # (Auto) 0.6 Eos # (Auto) 0.1 Baso # (Auto) 0.0 Abs Immat Gran (auto) 0.03 Absolute Neuts (auto) 6.1 Absolute Nucleated RBC 0.000 Nucleated RBC % 0.0 Sodium 134 L Potassium 3.0 L Chloride 105 Carbon Dioxide 19 L Anion Gap 10 BUN 6 L Creatinine 0.62 L Estim Creat Clear Calc Not Reportable Estimated GFR > 60 Glucose 112 H Calcium 9.1 Total Bilirubin 0.8 AST 29 ALT 34 Alkaline Phosphatase 74 Total Protein 7.0 Albumin 3.9 Urine Color Dark yellow Urine Appearance Turbid H Urine pH 5.5 Ur Specific [place] 1.030 Urine Protein 3+ H Urine Glucose (UA) Negative Urine Ketones 1+ H Ur Blood (Man) Negative Urine Nitrate Positive H Urine Bilirubin 2+ H Urine Urobilinogen 1.0 Add Ur Microanalysis Reviewed Leukocyte Esterase Rfl 1+ H Urine RBC 6-10 H Urine WBC 51-100 H Ur Squamous Epith Cells Many H Urine Bacteria 4+ H Urine Casts >20 Urine Mucus Present Final Diagnosis (1) Diarrhea: Qualifiers: Diarrhea type: unspecified type Qualified Code(s): R19.7 - Diarrhea, unspecified Code(s): R19.7 - Diarrhea, unspecified Status: Acute
== END 2025-04-14 11:48 | disposition home or self-care (01) ==
PROVIDERS: Admitting Provider Obstetrics & Gynecology; Visit Provider Obstetrics & Gynecology
DX: O99.891 Other specified diseases and conditions complicating pregnancy (principal); R19.7 Diarrhea, unspecified; Z3A.26 26 weeks gestation of pregnancy
CPT/HCPCS: 36415; 80053; 81001; 85025; 87086; 96360; A9270; G0378; G0379; J7121

== ENCOUNTER 2025-06-22 10:42 | Outpatient (CLI) | payer OTHER, SELFPAY ==
[2025-06-22] VITALS (8 sets, daily range): BP systolic 129–150; BP diastolic 74–87; PULSE 88; BMI 50.7
[2025-06-22 11:33] LABS: Hematocrit 33.0 % (37.0-47.0); Hemoglobin 10.6 g/dL (12.0-15.0); Immature Granulocyte Percent A 1.0 % (0-0.5); Lymphocytes Absolute Auto 0.86 K/mm3 (0.9-3.2); Mean Corpuscular HGB Conc 32.1 g/dl (32-36); Mean Corpuscular Hemoglobin 25.5 pg (26-34); Mean Corpuscular Volume 79.5 fl (80-100); Nucleated Red Blood Cells Absolute Auto 0.000 K/mm3 (0.0-0.012); Nucleated Red Blood Cells Perc 0.0 % (0.0-0.2); Platelet Count Result 163 k/mm3 (150-375); Red Blood Count 4.15 M/mm3 (4.2-5.4); White Blood Count 7.2 K/mm3 (4.5-10.0)
[2025-06-22 13:13] LABS: Total Protein Urine Random 12 mg/dL; Ur Ttl Prot Creatinine Ratio 0.11 mg/mg (0-0.20)
[2025-06-22 13:16] LABS: Appearance Urine Cloudy (Clear); Glucose Urine UA Negative (Negative); Specific Grav Ur 1.026 (1.001-1.035)
[2025-06-22 13:17] LABS: Add Urine Microscopic? YES; Leukocyte Esterase Ur 2+ LEU/UL (Negative); Nitrate Urine Negative (Negative)
--- NOTE | 2025-06-22 13:29 | PC.NURSE ---
Dr Gusman updated on pt labs and blood pressures. Results read to provider with reactive NST. Order received for 24 hour urine be completed and NST on . Pt to check bp at home and call them in on Friday.
[2025-06-22 13:30] LABS: Need Manual Microscopic Reviewed
[2025-06-22 13:55] LABS: Alanine Aminotransferase 14 U/L (6-35); Albumin Level 3.5 g/dL (3.5-5.1); Alkaline Phosphatase 93 U/L (38-126); Anion Gap 10 mmol/L (4-12); Aspartate Amino Transferase 19 U/L (14-36); Bilirubin,Total 0.2 mg/dL (0.2-1.3); Blood Urea Nitrogen 8 mg/dL (7-17); Calcium 8.7 mg/dL (8.4-10.2); Carbon Dioxide 17 mmol/L (22-30); Chloride 107 mmol/L (98-107); Estimated CRCL calculation 168 ml/min; Estimated Glomerular Filt Rate > 60; Glucose 97 mg/dL (65-110); Potassium 3.9 mmol/L (3.4-5.0); Sodium 134 mmol/L (137-145); Total Protein 6.3 g/dL (6.3-8.2); Uric Acid 5.3 mg/dL (2.5-7.5)
[2025-06-22 16:36] LABS: HIV 1/2 Ab P24 Ag Result Negative (Negative)
[2025-06-22 19:44] LABS: Syphilis IgG/IgM Antibody Non-Reactive (Nonreactive)
--- OUTSIDE RECORDS SUMMARY | 2025-06-23 13:00 | XMS_ITS | Encounter Summary ---
Author Organization [facility] Address [address] [facility] [place] [address] Care Team Providers Care Rn Private Duty Name Role Phone Unavailable Primary Care Provider [...] Biophysical Profile w NST Foster Lozano MD [address] [facility] [address] [place] [address] Phone: tel: fax: Referral ID Status Reason Start Date Expiration Date Visits Re quested Visits Authorized [id number] Open 06/21/2025 06/21/2026 1 1 L OPERATOR * Consultation (Routine) - Open Specialty Diagnoses [...] age, primigravida, antepartum (HCC) Foster Lozano MD [address] [facility] [address] [place] [address] Phone: tel: fax: [facility] [address] [place] [address] Phone: tel: fax: Referral ID Status Reason Start Date Expiration Date V isits Requested Visits Authorized [id number] Open Specialty Services Required 06/21/2025 06/21/2026 3 3 L OPERATOR * (Routine) - Open Specialty Diagnoses / [...] Biophysical Profile w NST Foster Lozano MD [address] [facility] [address] [place] [address] Phone: tel: fax: Referral ID Status Reason Start Date Expiration Date Visits Re quested Visits Authorized [id number] Open 06/21/2025 06/21/2026 1 1 L OPERATOR Reason for Visit * Reason Comments Maternal [...] primigravida, antepartum (HCC) Foster Lozano MD [address] [facility] [address] [place] [address] Phone: tel: fax: [facility] [address] [place] [address] Phone: tel: fax: Referral ID Status Reason Start Date Expiration Date V isits Requested Visits Authorized [id number] Open Specialty Services Required 06/21/2025 06/21/2026 3 3 Encounter Details Date Type Department Care Team (Late st Contact Info) Description 06/23/2025 1:00 PM MOGUL OPERATOR Hospital Encounter [facility] [address] [place] [address] Frank Horan MD [address] [facility] [address] [place] [address] ELASTIC YARN TWISTER Social History Tobacco Use Types Packs/Day Years Used Date Smoking Tobacco: Never Smokeless Tobacco: Never Alcohol Use Standard Drinks/Week Comments No 0 (1 standard drink = 0.6 oz pur e alcohol) Estimated Date of Delivery Comme nts Yes 07/18/2025 Based on Ultraso und Sex and Gender Information Value Date Recorded Sex Assigned at Not on file Legal Sex Female 4:23 AM MOGUL OPERATOR Gender Identity Not on file Sexual Orientation Not on file documented as of this encounter Plan of Treatment Scheduled Orders Name Type Priority Associated Diagnoses Orde r Schedule Biophysical Profile w [facility] Routine resulting from assisted reproductive technology in third trimester (HCC) Encounter for ultrasound to assess growth (HCC) Gestational diabetes mellitus (GDM) in third trimester, gestational diabetes method of control unspecified (HCC) Obesity affecting in third trimester, unspecified obesity type (HCC) 36 weeks gestation of (HCC) Advanced maternal age, primigravida, antepartum (HCC) 1 Occurrences starting 06/21/2025 until 06/21/2026 Biophysical Profile w [facility] Routine resulting from assisted reproductive technology in third trimester (HCC) Encounter for ultrasound to assess growth (HCC) Gestational diabetes mellitus (GDM) in third trimester, gestational diabetes method of control unspecified (HCC) Obesity affecting in third trimester, unspecified obesity type (HCC) 36 weeks gestation of (HCC) Advanced maternal age, primigravida, antepartum (HCC) 1 Occurrences starting 06/23/2025 until 06/23/2025 Scheduled Referrals Name Type Priority Associated Diagnoses Orde r Schedule AMB REFERRAL TO MATERNAL- MEDICINE Outpatient Referral Routine resulting from assisted reproductive technology in third trimester ([facility]) Encounter for ultrasound to assess growth (HCC) Gestational diabetes mellitus (GDM) in third trimester, gestational diabetes method of control unspecified (HCC) Obesity affecting in third trimester, unspecified obesity type (HCC) 36 weeks gestation of (HCC) Advanced maternal age, primigravida, antepartum (HCC) 1 Occurrences starting 06/21/2025 until 06/21/2026 documented as of this encounter Visit Diagnoses Diagnosis AMA (advanced maternal age) multigravida 35+, third trimester (HCC)- Primary resulting from assisted reproductive technology in third trimester ([facility]) Encounter for ultrasound to assess growth (HCC) Gestational diabetes mellitus (GDM) in third trimester, gestational diabetes method of control unspecified (HCC) Obesity affecting in third trimester, unspecified obesity type (HCC) 36 weeks gestation of (HCC) state, incidental Advanced maternal age, primigravida, antepartum (HCC) Elderly primigravida, antepartum documented in this encounter
--- OUTSIDE RECORDS SUMMARY | 2025-06-23 13:02 | XMS_ITS | Encounter Summary ---
Author Organization [facility] Address [address] [facility] [place] [address] Care Team Providers Care Crystal Flat Grinder Name Role Phone Unavailable Primary Care Provider [...] primigravida, antepartum (HCC) Foster Lozano MD [address] [facility] [address] [address] Phone: tel: fax: [facility] Maternal & Care [address] [place] [address] Phone: tel: fax: Referral ID Status Reason Start Date Expiration Date V isits Requested Visits Authorized [id number] Open Specialty Services Required 06/21/2025 06/21/2026 3 3 SHAVER HELPER Reason for Visit * Reason Comments Maternal [...] (HCC) Advanced maternal age, primigravida, antepartum (HCC) oFster Lozano MD [address] [facility] [address] [place] [address] Phone: tel: fax: [facility] Maternal & Care [address] [place] [address] Phone: tel: fax: Referral ID Status Reason Start Date Expiration Date V isits Requested Visits Authorized [id number] Open Specialty Services Required 06/21/2025 06/21/2026 3 3 Encounter Details Date Type Department Care Team (Late st Contact Info) Description 06/23/2025 1:02 PM POLE SHAVER HELPER Hospital Encounter [facility] Maternal & Care [address] [place], [place] [id number] Frank Horan MD [address] [facility] [address] [place] [address] Social History Tobacco Use Types [...] on file Legal Sex Female 4:23 AM POLE SHAVER HELPER Gender Identity Not on file Sexual Orientation Not on file documented as of this encounter Last Filed Vital Signs Vital Sign Reading Time Taken Comments Blood Pressure 116/59 06/23/2025 1:39 PM POLE SHAVER HELPER Pulse 81 06/23/2025 1:39 PM POLE SHAVER HELPER Temperature - - Respiratory Rate - - Oxygen Saturation - - Inhaled Oxygen Concentration - - Weight 133.8 kg (295 lb) 06/23/2025 1:39 PM POLE SHAVER HELPER Height 162.6 cm (5' 4) 06/23/2025 1:39 PM POLE SHAVER HELPER Body Mass Index 50.64 06/23/2025 1:39 PM POLE SHAVER HELPER documented in this encounter Plan of Treatment [...]
--- OUTSIDE RECORDS SUMMARY | 2025-06-23 15:27 | XMS_ITS | Encounter Summary ---
Author Organization [facility] Address [address] [place] [address] Care Team Providers Care Delinquency Prevention Officer Name Role Phone Ryan Pritchard MD Primary Care Provider [phone] Encounter Details Date Type Department Care Team (Late st Contact Info) Description 07/23/2004 Outpatient Historical [facility] Primary Care - [place] [address] [place] [address] Magen Ag, DO * Social History Tobacco Use Types Packs/Day Years Used Date Smoking Tobacco: Never Assessed Comments Unknown Sex and Gender Information Value Date Recorded Sex Assigned at Not on file Legal Sex Female 4:47 AM BOTTLING LINE OPERATOR Gender Identity Not on file Sexual Orientation Not on file documented as of this encounter Plan of Treatment Not on file documented as of this encounter Visit Diagnoses Not on filedocumented in this encounter Care Teams Delinquency Prevention Officer Relationship Specialty Start Date End Date Ryan Pritchard MD [address] [facility] [address] [place] [address] PCP - General Family Practice 02/02/10 documented as of this encounter
--- OUTSIDE RECORDS SUMMARY | 2025-06-23 15:27 | XMS_ITS | Encounter Summary ---
Author Organization [facility] Address [address] [place] [address] Care Team Providers Care Animal Scientist Name Role Phone Ryan Pritchard MD Primary Care Provider [phone] Encounter Details Date Type Department Care Team (Late st Contact Info) Description 03/15/2002 Outpatient Historical [facility] Primary Care - [place] [address] [place] [address] Magen Ag, DO * Social History Tobacco Use Types Packs/Day Years Used Date Smoking Tobacco: Never Assessed Comments Unknown Sex and Gender Information Value Date Recorded Sex Assigned at Not on file Legal Sex Female 4:47 AM RE DYE HAND Gender Identity Not on file Sexual Orientation Not on file documented as of this encounter Plan of Treatment Not on file documented as of this encounter Visit Diagnoses Not on filedocumented in this encounter Care Teams Animal Scientist Relationship Specialty Start Date End Date Ryan Pritchard MD [address] [facility] [address] [place] [address] PCP - General Family Practice 02/02/10 documented as of this encounter
--- OUTSIDE RECORDS SUMMARY | 2025-06-23 15:27 | XMS_ITS | Encounter Summary ---
Author Organization [facility] Address [address] [place] [address] Care Team Providers Care Storeroom Supervisor Name Role Phone Ryan Pritchard MD Primary Care Provider [phone] Encounter Details Date Type Department Care Team (Late st Contact Info) Description 03/23/2002 Outpatient Historical [facility] Primary Care - [place] [address] [place] [address] Magen Ag, DO * Social History Tobacco Use Types Packs/Day Years Used Date Smoking Tobacco: Never Assessed Comments Unknown Sex and Gender Information Value Date Recorded Sex Assigned at Not on file Legal Sex Female 4:47 AM ALL ROUND BUTCHER Gender Identity Not on file Sexual Orientation Not on file documented as of this encounter Plan of Treatment Not on file documented as of this encounter Visit Diagnoses Not on filedocumented in this encounter Care Teams Storeroom Supervisor Relationship Specialty Start Date End Date Ryan Pritchard MD [address] [facility] [address] [place] [address] PCP - General Family Practice 02/02/10 documented as of this encounter
--- OUTSIDE RECORDS SUMMARY | 2025-06-23 15:27 | XMS_ITS | Encounter Summary ---
Author Organization [facility] Address [address] [place] [address] Care Team Providers Care Pathology Technician Name Role Phone Ryan Pritchard MD Primary Care Provider [phone] Encounter Details Date Type Department Care Team (Latest Contact Info) Description 07/18/2005 Outpatient Historical [facility] [place] [address] [place] [address] CONTUSION LEG NOS (Primary Dx) Social History Tobacco Use Types Packs/Day Years Used Date Smoking Tobacco: Never Assessed Comments Unknown Sex and Gender Information Value Date Recorded Sex Assigned at Not on file Legal Sex Female 4:47 AM FINGERPRINT EXPERT Gender Identity Not on file Sexual Orientation Not on file documented as of this encounter Plan of Treatment Not on file documented as of this encounter Visit Diagnoses Diagnosis Contusion of unspecified part of lower limb- Primary documented in this encounter Care Teams Pathology Technician Relationship Specialty Start Date End Date Ryan Pritchard MD [address] [facility] [address] [place] [address] PCP - General Family Practice 02/02/10 documented as of this encounter
--- OUTSIDE RECORDS SUMMARY | 2025-06-23 15:27 | XMS_ITS | Encounter Summary ---
Author Organization [facility] Address [address] [place] [address] Care Team Providers Care Sinter Feeder Name Role Phone Ryan Pritchard MD Primary Care Provider [phone] Encounter Details Date Type Department Care Team (Late st Contact Info) Description 07/04/2003 Outpatient Historical [facility] Primary Care - [place] [address] [place] [address] No Santos MD NO ADDRESS ON FILE Social History Tobacco Use Types Packs/Day Years Used Date Smoking Tobacco: Never Assessed Comments Unknown Sex and Gender Information Value Date Recorded Sex Assigned at Not on file Legal Sex Female 4:47 AM FOOT ROENTGENOLOGIST Gender Identity Not on file Sexual Orientation Not on file documented as of this encounter Plan of Treatment Not on file documented as of this encounter Visit Diagnoses Not on filedocumented in this encounter Care Teams Sinter Feeder Relationship Specialty Start Date End Date Ryan Pritchard MD [address] [facility] [address] [place] [address] PCP - General Family Practice 02/02/10 documented as of this encounter
--- OUTSIDE RECORDS SUMMARY | 2025-06-23 15:27 | XMS_ITS | Encounter Summary ---
Author Organization [facility] Address [address] [place] [address] Care Team Providers Care Mixing Machine Attendant Name Role Phone Ryan Pritchard MD Primary Care Provider [phone] Encounter Details Date Type Department Care Team (Late st Contact Info) Description 10/05/2002 Outpatient Historical [facility] Primary Care - [place] [address] [place] [address] Magen Ag, DO * Social History Tobacco Use Types Packs/Day Years Used Date Smoking Tobacco: Never Assessed Comments Unknown Sex and Gender Information Value Date Recorded Sex Assigned at Not on file Legal Sex Female 4:47 AM AIRWORTHINESS INSPECTOR Gender Identity Not on file Sexual Orientation Not on file documented as of this encounter Plan of Treatment Not on file documented as of this encounter Visit Diagnoses Not on filedocumented in this encounter Care Teams Mixing Machine Attendant Relationship Specialty Start Date End Date Ryan Pritchard MD [address] [place] [address] PCP - General Family Practice 02/02/10 documented as of this encounter
--- OUTSIDE RECORDS SUMMARY | 2025-06-23 15:27 | XMS_ITS | Clinical Summary ---
Author Organization [facility] Address [facility] [place] [address] Care Team Providers Care Salon Designer Name Role Phone Carlos A Winn MD Primary Care Provider [phone] Allergies Active Allergy Reactions Criticality Noted Date Comments Fluconazole Rash Low 02/02/2010 Medications diphenhydrAMINE HCl, Sleep, 25 MG Tab Take 25 mg by mouth every 6 (six) hours as needed. Active ibuprofen 600 MG tablet TAKE 1 TABLET BY MOUTH 3 TIMES A DAY NEEDED FOR PAIN 1 Active dicyclomine (BENTYL) 20 MG tablet Take 1 tablet (20 mg total) by mouth every 6 (six) hours. 20 tablet 4 Active Additional Information Patient not taking.Reported on 01/13/2024 ondansetron (ZOFRAN) 4 MG tablet Take 1 tablet (4 mg total) by mouth every 8 (eight) hours as needed for Nausea. 20 tablet 4 Active Additional Information Patient not taking.Reported on 01/13/2024 buPROPion XL (WELLBUTRIN XL) 150 MG 24 hr tabletIndication s:Class 3 severe obesity with body mass index (BMI) of 45.0 to 49.9 in adult, unspecified obesity type, unspecified whether serious comorbidity present (CMS/HCC) Take 1 tablet (150 mg total) by mouth daily. 30 tablet 1 4 Active Phentermine HCl 15 MG CapIndications:C lass 3 severe obesity with body mass index (BMI) of 45.0 to 49.9 in adult, unspecified obesity type, unspecified whether serious comorbidity present (CMS/HCC) Take 15 mg by mouth daily. 30 capsule 1 4 Active Active Problems Problem Noted Date Diagnosed Date Hearing loss of both ears due to cerumen impacti on 02/08/2022 Obesity 03/28/2010 Immunizations Immunization Administration Dates Next Due Dtap (Acel-Immune) 03/11/1994, 3,06/20/1989,04/25/1989,02/1989 Hepatitis B (Generic: Adult) 04/23/2002,03/22/20 00,02/15/2000 Hib (Generic) 04/01/1992 MMR (MMRII) 03/11/1994,04/01/1992 Polio IPV (Ipol) 03/11/1994,07/03/1993, 9,04/25/1989 Td (TDVAX) 12/19/2003 Family History Medical History Relation Comments Cancer Father eye cancer as in [place]. Hypertension Father Hypertension Mother Relation Status Comments Father Alive Mother Alive Social History Tobacco Use Types Packs/Day Years Used Date Smoking Tobacco: Never Smokeless Tobacco: Never Tobacco Cessation:Counseling Given: No Alcohol Use Standard Drinks/Week Comments Yes 0 (1 standard drink = 0.6 oz pur e alcohol) rarely PHQ-2 Answer Date Recorded Patient Health Questionnaire-2 Score 2 01/13/2024 Comments No Sex and Gender Information Value Date Recorded Sex Assigned at Not on file Legal Sex Female 2:24 PM CDT Gender Identity Not on file Sexual Orientation Not on file Last Filed Vital Signs Vital Sign Reading Time Taken Comments Blood Pressure 134/87 01/13/2024 8:19 AM CDT Pulse 95 01/13/2024 8:19 AM CDT Temperature 36.1 C (97 F) 01/13/2024 8:19 AM CDT Respiratory Rate 16 01/13/2024 8:19 AM CDT Oxygen Saturation 98% 01/13/2024 8:19 AM CDT Inhaled Oxygen Concentration - - Weight 131.6 kg (290 lb 3.2 oz) 01/13/2024 8:19 AM CDT Height 162.6 cm (5' 4) 01/13/2024 8:19 AM CDT Body Mass Index 49.81 01/13/2024 8:19 AM CDT Plan of Treatment Health Maintenance Due Date Last Done Comments Cervical Cancer Screening Pap Smear (Age 30 to 64) Every 3 Years 1988 DTaP, Tdap and Td Vaccines (6 - Tdap) 12/20/2003 12/19/2003, 03/11/1994, 07/03/1993, Additional history exists Hepatitis C 2006 HPV Vaccines (1 - 3-dose SCDM series) 12/28/2015 Cervical Cancer Screening Pap with HPV Testing (Age 30 to 64) Every 5 Years 2018 Cervical Cancer Screening with HPV 2018 Annual Physical 02/08/2023 02/08/2022 PHQ-2 (Physician [place]) 08/18/2024 01/13/2024 COVID-19 Vaccine ( season) 2025 06/16/2021, 05/26/2021 Influenza Adult (#1) 2025 Hepatitis B Vaccines Completed 04/23/2002, 03/22/2000, 02/15/2000 Hepatitis A Vaccines Aged Out No long er eligible based on patient's age to complete this topic Meningococcal B Vaccine Aged Out No l onger eligible based on patient's age to complete this topic Meningococcal Vaccine Aged Out No jose rafael gigi eligible based on patient's age to complete this topic Pneumococcal Vaccine: Pediatrics (0 to 5 Years) and At-Risk Patients (6 to 49 Years) Aged Out No longer eligible based on patient's age to complete this topic RSV Immunizations Under 20 Months Aged Out No longer eligible based on patient's age to complete this topic Insurance [employer] Care Teams Salon Designer Relationship Specialty [place] [address] [place] [address] PCP - General INTERNAL MEDICINE 11/11/24
--- OUTSIDE RECORDS SUMMARY | 2025-06-23 15:27 | XMS_ITS | Encounter Summary ---
Author Organization [facility] Address [address] [place] [address] Care Team Providers Care Clamp Remover Name Role Phone Ryan Pritchard MD Primary Care Provider [phone] Encounter Details Date Type Department Care Team (Late st Contact Info) Description 08/30/2002 Outpatient Historical [facility] Primary Care - [place] [address] [place] [address] Magen Ag, DO * Social History Tobacco Use Types Packs/Day Years Used Date Smoking Tobacco: Never Assessed Comments Unknown Sex and Gender Information Value Date Recorded Sex Assigned at Not on file Legal Sex Female 4:47 AM COMBER OPERATOR Gender Identity Not on file Sexual Orientation Not on file documented as of this encounter Plan of Treatment Not on file documented as of this encounter Visit Diagnoses Not on filedocumented in this encounter Care Teams Clamp Remover Relationship Specialty Start Date End Date Ryan Pritchard MD [address] [facility] [address] [place] [address] PCP - General Family Practice 02/02/10 documented as of this encounter
--- OUTSIDE RECORDS SUMMARY | 2025-06-23 15:27 | XMS_ITS | Encounter Summary ---
Author Organization [facility] Address [address] [place] [address] Care Team Providers Care Countersinker Balance Screw Hole Name Role Phone Ryan Pritchard MD Primary Care Provider [phone] Encounter Details Date Type Department Care Team (Late st Contact Info) Description 12/14/2002 Outpatient Historical [facility] Primary [place] - [place] [address] [place] [address] Magen Ag, DO * Social History Tobacco Use Types Packs/Day Years Used Date Smoking Tobacco: Never Assessed Comments Unknown Sex and Gender Information Value Date Recorded Sex Assigned at Not on file Legal 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
--- OUTSIDE RECORDS SUMMARY | 2025-06-23 15:27 | XMS_ITS | Encounter Summary ---
Author Organization [facility] Address [address] [place] [address] Care Team Providers Care Vice President Of Brand Management Name Role Phone Ryan Pritchard MD Primary Care Provider [phone] Encounter Details Date Type Department Care Team (Late st Contact Info) Description 12/21/2002 Outpatient Historical [facility] Primary Care - [place] [address] [place] [address] Magen Ag, DO * Social History Tobacco Use Types Packs/Day Years Used Date Smoking Tobacco: Never Assessed Comments Unknown Sex and Gender Information Value Date Recorded Sex Assigned at Not on file Legal Sex Female 4:47 AM REFUELER Gender Identity Not on file Sexual Orientation Not on file documented as of this encounter Plan of Treatment Not on file documented as of this encounter Visit Diagnoses Not on filedocumented in this encounter Care Teams Vice President Of Brand Management Relationship Specialty Start Date End Date Ryan Pritchard MD [address] [place] [address] PCP - General Family Practice 02/02/10 documented as of this encounter
--- OUTSIDE RECORDS SUMMARY | 2025-06-23 15:27 | XMS_ITS | Encounter Summary ---
Author Organization [facility] Address [address] [place] [address] Care Team Providers Care Mathematics Instructor Name Role Phone Ryan Pritchard MD Primary Care Provider [phone] Encounter Details Date Type Department Care Team (Late st Contact Info) Description 09/13/2003 Outpatient Historical [facility] Primary Care - [place] [address] [place] [address] Magen Ag, DO * Social History Tobacco Use Types Packs/Day Years Used Date Smoking Tobacco: Never Assessed Comments Unknown Sex and Gender Information Value Date Recorded Sex Assigned at Not on file Legal Sex Female 4:47 AM LAYOUT INSPECTOR Gender Identity Not on file Sexual Orientation Not on file documented as of this encounter Plan of Treatment Not on file documented as of this encounter Visit Diagnoses Not on filedocumented in this encounter Care Teams Mathematics Instructor Relationship Specialty Start Date End Date Ryan Pritchard MD [address] [place] [address] PCP - General Family Practice 02/02/10 documented as of this encounter
--- OUTSIDE RECORDS SUMMARY | 2025-06-23 15:27 | XMS_ITS | Clinical Summary ---
Author Organization [email or web address] [facility] Address [address] [place] [address] Phone Care Team Providers Care Sql Report Analyst Name Role Phone Ryan Pritchard MD Primary Care Provider [phone] Allergies Active Allergy Reactions Criticality Noted Date [...] for Allergies. Active fluticasone (FLONASE) 50 mcg/spray [place], Suspension Administer 2 Sprays in each nostril [...] on file Legal Sex Female 4:47 AM SEARCH CONSULTANT Gender Identity Not on file Sexual Orientation Not on file Last Filed Vital Signs Vital Sign Reading Time Taken Comments Blood Pressure 118/78 12/23/2014 11:57 AM CDT Pulse 84 12/23/2014 11:57 AM CDT Temperature 36.6 C (97.8 F) 12/23/2014 11:57 AM CDT Respiratory Rate 16 06/22/2013 1:42 PM SEARCH CONSULTANT Oxygen Saturation 98% 12/23/2014 11:57 AM CDT [...] HPV (04/10/2012 1:40 PM CDT) CLINICAL INFORMATION [facility] Comment:Information not prov ided LAST MENSTRUAL PERIOD [facility] Comment:INFORMATION NOT PROV IDED PREV PAP: [facility] Comment:INFORMATION NOT PROV IDED PREV BX: [facility] Wow! Stuff [facility] Comment:INFORMATION NOT PROV IDED SOURCE [facility] Comment:Endocervix ADEQUACY: [facility] Wow! Stuff [facility] Comment: Satisfactory for evaluation. Endocervical/transformation zone component present. Age and/or menstrual status not provided INTERPRETATION [facility] Comment:Negative for intraep ithelial lesion or malignancy. CYTOLOGY INFECTION [employer] [facility] Comment: Shift in vaginal hawk suggestive of bacterial vaginosis. COMMENT [facility] Wow! Stuff [facility] Comment: This Pap test has been evaluated with computer assisted technology. Based on the cytology result, reflex High Risk HPV DNA testing was not performed. VAT OVERHAULER: [employer] [facility] Comment: MDG, CT(ASCP) Test Performed at: [facility] [address] [place] [address] KALI VENTURA DO 04/10/2012 1:40 PM CDT Ryan Pritchard MD PATHOLOGY/CYTOLOGY ORDERABLE S Final Result INTERFACE SYSTEM Refer to clinic/hospital department [facility] [address] [place] [address] from Last 3 Months or Most Recently Relevant to Health Maintenance Insurance [place] [id number] [facility] [id number] Care Teams Sql Report Analyst Relationship Specialty Start Date End Date Ryan Pritchard MD [address] [facility] [address] [place] [address] PCP - General Family Practice 02/02/10
--- OUTSIDE RECORDS SUMMARY | 2025-06-23 15:27 | XMS_ITS | Encounter Summary ---
Author Organization [facility] Address [address] [place] [address] Care Team Providers Care Director Global Strategic Publisher Sales Name Role Phone Ryan Pritchard MD Primary Care Provider [phone] Encounter Details Date Type Department Care Team (Late st Contact Info) Description 12/09/2002 Outpatient Historical [facility] Primary Care - [place] [address] [address] Magen Ag, DO * Social History Tobacco Use Types Packs/Day Years Used Date Smoking Tobacco: Never Assessed Comments Unknown Sex and Gender Information Value Date Recorded Sex Assigned at Not on file Legal Sex Female 4: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
--- OUTSIDE RECORDS SUMMARY | 2025-06-23 15:27 | XMS_ITS | Encounter Summary ---
Author Organization [facility] Address [address] [place] [address] Care Team Providers Care Multimedia Production Assistant Name Role Phone Ryan Pritchard MD Primary Care Provider [phone] Encounter Details Date Type Department Care Team (Late st Contact Info) Description 09/15/2003 Outpatient Historical [facility] Primary Care - [place] [address] [place] [address] No Santos MD NO ADDRESS ON FILE Social History Tobacco Use Types Packs/Day Years Used Date Smoking Tobacco: Never Assessed Comments Unknown Sex and Gender Information Value Date Recorded Sex Assigned at Not on file Legal Sex Female 4:47 AM CROP OR GRAIN 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
--- OUTSIDE RECORDS SUMMARY | 2025-06-23 15:27 | XMS_ITS | Encounter Summary ---
Author Organization [facility] Address [address] [place] [address] Care Team Providers Care Cash Applications Clerk Name Role Phone Ryan Pritchard MD Primary Care Provider [phone] Encounter Details Date Type Department Care Team (Late st Contact Info) Description 08/10/2002 Outpatient Historical [facility] Primary Care - [place] [address] [place] [address] Magen Ag, DO * Social History Tobacco Use Types Packs/Day Years Used Date Smoking Tobacco: Never Assessed Comments Unknown Sex and Gender Information Value Date Recorded Sex Assigned at Not on file Legal Sex Female 4:47 AM PULPER OPERATOR Gender Identity Not on file Sexual Orientation Not on file documented as of this encounter Plan of Treatment Not on file documented as of this encounter Visit Diagnoses Not on filedocumented in this encounter Care Teams Cash Applications Clerk Relationship Specialty Start Date End Date Ryan Pritchard MD [address] [place] [address] PCP - General Family Practice 02/02/10 documented as of this encounter
--- OUTSIDE RECORDS SUMMARY | 2025-06-23 15:27 | XMS_ITS | Encounter Summary ---
Author Organization [facility] Address [address] [place] [address] Care Team Providers Care Mercantile Agent Name Role Phone Ryan Pritchard MD Primary Care Provider [phone] Encounter Details Date Type Department Care Team (Late st Contact Info) Description 10/29/2000 Outpatient Historical [facility] Hayley Barth Social History Tobacco Use Types Packs/Day Years Used Date Smoking Tobacco: Never Assessed Comments Unknown Sex and Gender Information Value Date Recorded Sex Assigned at Not on file Legal Sex Female 4:47 AM DIGITAL MEDIA COORDINATOR Gender Identity Not on file Sexual Orientation Not on file documented as of this encounter Plan of Treatment Not on file documented as of this encounter Visit Diagnoses Not on filedocumented in this encounter Care Teams Mercantile Agent Relationship Specialty Start Date End Date Ryan Pritchard MD [address] [place] [address] PCP - General Family Practice 02/02/10 documented as of this encounter
--- OUTSIDE RECORDS SUMMARY | 2025-06-23 15:27 | XMS_ITS | Encounter Summary ---
Author Organization [facility] Address [address] [place] [address] Care Team Providers Care Bank Representative Name Role Phone Ryan Pritchard MD Primary Care Provider [phone] Encounter Details Date Type Department Care Team (Latest Contact Info) Description 05/19/2005 Outpatient Historical [facility] Jackson Garcia MD NO ADDRESS ON FILE CONTUSION OF HAND(S) (Primary Dx) Social History Tobacco Use Types Packs/Day Years Used Date Smoking Tobacco: Never Assessed Comments Unknown Sex and Gender Information Value Date Recorded Sex Assigned at Not on file Legal Sex Female 4:47 AM EXECUTIVE COMMUNITY PLANNING Gender Identity Not on file Sexual Orientation Not on file documented as of this encounter Plan of Treatment Not on file documented as of this encounter Visit Diagnoses Diagnosis Contusion of hand(s)- Primary documented in this encounter Care Teams Bank Representative Relationship Specialty Start Date End Date Ryan Pritchard MD [address] [place] [address] PCP - General Family Practice 02/02/10 documented as of this encounter
--- OUTSIDE RECORDS SUMMARY | 2025-06-23 15:27 | XMS_ITS | Encounter Summary ---
Author Organization [facility] Address [address] [place] [address] Care Team Providers Care Metalizer Field Operation Name Role Phone Ryan Pritchard MD Primary Care Provider [phone] Encounter Details Date Type Department Care Team (Late st Contact Info) Description 12/18/[address] [facility] Primary Care - [place] [address] [place] [address] Magen Ag, DO * Social History Tobacco Use Types Packs/Day Years Used Date Smoking Tobacco: Never Assessed Comments Unknown Sex and Gender Information Value Date Recorded Sex Assigned at Not on file Legal Sex Female 4:47 AM DUST COLLECTOR ORE CRUSHING Gender Identity Not on file Sexual Orientation Not on file documented as of this encounter Plan of Treatment Not on file documented as of this encounter Visit Diagnoses Not on filedocumented in this encounter Care Teams Metalizer Field Operation Relationship Specialty Start Date End Date Ryan Pritchard MD [address] [place] [address] PCP - General Family Practice 02/02/10 documented as of this encounter
--- OUTSIDE RECORDS SUMMARY | 2025-06-23 15:27 | XMS_ITS | Encounter Summary ---
Author Organization [facility] Address [address] [place] [address] Care Team Providers Care Disk Sharpener Name Role Phone Ryan Pritchard MD Primary Care Provider [phone] Encounter Details Date Type Department Care Team (Late st Contact Info) Description 05/12/2001 Outpatient Historical [facility] [address] [place] [address] Hayley Barth Social History Tobacco Use Types Packs/Day Years Used Date Smoking Tobacco: Never Assessed Comments Unknown Sex and Gender Information Value Date Recorded Sex Assigned at Not on file Legal Sex Female 4:47 AM JIG GRINDER Gender Identity Not on file Sexual Orientation Not on file documented as of this encounter Plan of Treatment Not on file documented as of this encounter Visit Diagnoses Not on filedocumented in this encounter Care Teams Disk Sharpener Relationship Specialty Start Date End Date Ryan Pritchard MD [address] [place] [address]. [address] [place] [address] PCP - General Family Practice 02/02/10 documented as of this encounter
--- OUTSIDE RECORDS SUMMARY | 2025-06-23 15:27 | XMS_ITS | Encounter Summary ---
Author Organization [facility] Address [address] [place] [address] Care Team Providers Care Wood Gluer Name Role Phone Ryan Pritchard MD Primary Care Provider [phone] Encounter Details Date Type Department Care Team (Late st Contact Info) Description 01/14/[address] [facility] [address] [place] [address] Hayley Barth Social History Tobacco Use Types Packs/Day Years Used Date Smoking Tobacco: Never Assessed Comments Unknown Sex and Gender Information Value Date Recorded Sex Assigned at Not on file Legal Sex Female 4:47 AM FELT FINISHING SUPERVISOR Gender Identity Not on file Sexual Orientation Not on file documented as of this encounter Plan of Treatment Not on file documented as of this encounter Visit Diagnoses Not on filedocumented in this encounter Care Teams Wood Gluer Relationship Specialty Start Date End Date Ryan Pritchard MD [address] [place] [address]. [address] [place] [address] PCP - General Family Practice 02/02/10 documented as of this encounter
--- OUTSIDE RECORDS SUMMARY | 2025-06-23 15:27 | XMS_ITS | Encounter Summary ---
Author Organization [facility] Address [address] [place] [address] Care Team Providers Care Bottle Machine Operator Name Role Phone Ryan Pritchard MD Primary Care Provider [phone] Encounter Details Date Type Department Care Team (Late st Contact Info) Description 08/06/2004 Outpatient Historical [facility] Primary Care - [place] [address] [place] [address] Magen Ag, DO * Social History Tobacco Use Types Packs/Day Years Used Date Smoking Tobacco: Never Assessed Comments Unknown Sex and Gender Information Value Date Recorded Sex Assigned at Not on file Legal Sex Female 4:47 AM FITTING ROOM ATTENDANT Gender Identity Not on file Sexual Orientation Not on file documented as of this encounter Plan of Treatment Not on file documented as of this encounter Visit Diagnoses Not on filedocumented in this encounter Care Teams Bottle Machine Operator Relationship Specialty Start Date End Date Ryan Pritchard MD [address] [place] [address] PCP - General Family Practice 02/02/10 documented as of this encounter
--- OUTSIDE RECORDS SUMMARY | 2025-06-23 15:27 | XMS_ITS | Encounter Summary ---
Author Organization [facility] Address [address] [place] [address] Care Team Providers Care Automotive Wholesale Parts Advisor Name Role Phone Ryan Pritchard MD Primary Care Provider [phone] Encounter Details Date Type Department Care Team (Late st Contact Info) Description 05/20/2003 Outpatient Historical [facility] Primary Care - [place] [address] [place] [address] No Santos MD NO ADDRESS ON FILE Social History Tobacco Use Types Packs/Day Years Used Date Smoking Tobacco: Never Assessed Comments Unknown Sex and Gender Information Value Date Recorded Sex Assigned at Not on file Legal Sex Female 4:47 AM CREDIT CARD CONTROL CLERK Gender Identity Not on file Sexual Orientation Not on file documented as of this encounter Plan of Treatment Not on file documented as of this encounter Visit Diagnoses Not on filedocumented in this encounter Care Teams Automotive Wholesale Parts Advisor Relationship Specialty Start Date End Date Ryan Pritchard MD [address] [facility] [address] [place] [address] PCP - General Family Practice 02/02/10 documented as of this encounter
--- OUTSIDE RECORDS SUMMARY | 2025-06-23 15:27 | XMS_ITS | Encounter Summary ---
Author Organization [facility] Address [address] [place] [address] Care Team Providers Care Television Camera Operator Name Role Phone Ryan Pritchard MD Primary Care Provider [phone] Encounter Details Date Type Department Care Team (Late st Contact Info) Description 09/28/2003 Outpatient Historical [facility] Primary Care - [place] [address] [place] [address] No Santos MD NO ADDRESS ON FILE Social History Tobacco Use Types Packs/Day Years Used Date Smoking Tobacco: Never Assessed Comments Unknown Sex and Gender Information Value Date Recorded Sex Assigned at Not on file Legal Sex Female 4:47 AM TEXTILE EXAMINER Gender Identity Not on file Sexual Orientation Not on file documented as of this encounter Plan of Treatment Not on file documented as of this encounter Visit Diagnoses Not on filedocumented in this encounter Care Teams Television Camera Operator Relationship Specialty Start Date End Date Ryan Pritchard MD [address] [place] [address] PCP - General Family Practice 02/02/10 documented as of this encounter
--- OUTSIDE RECORDS SUMMARY | 2025-06-23 15:27 | XMS_ITS | Encounter Summary ---
Author Organization [facility] Address [address] [place] [address] Care Team Providers Care Certified Bench Jeweler Technician Name Role Phone Ryan Pritchard MD Primary Care Provider [phone] Encounter Details Date Type Department Care Team (Late st Contact Info) Description 10/26/2003 Outpatient Historical [facility] Primary Care - [place] [address] [place] [address] No Santos MD NO ADDRESS ON FILE Social History Tobacco Use Types Packs/Day Years Used Date Smoking Tobacco: Never Assessed Comments Unknown Sex and Gender Information Value Date Recorded Sex Assigned at Not on file Legal Sex Female 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
--- OUTSIDE RECORDS SUMMARY | 2025-06-23 15:27 | XMS_ITS | Encounter Summary ---
Author Organization [facility] Address 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
--- OUTSIDE RECORDS SUMMARY | 2025-06-23 15:27 | XMS_ITS | Encounter Summary ---
Author Organization [facility] Address [address] [place] [address] Care Team Providers Care Cardiovascular Disease Specialist Name Role Phone Ryan Pritchard MD Primary Care Provider [phone] Encounter Details Date Type Department Care Team (Late st Contact Info) Description 10/06/2003 Outpatient Historical [facility] Primary Care - [place] [address] [place] [address] Magen Ag, DO * Social History Tobacco Use Types Packs/Day Years Used Date Smoking Tobacco: Never Assessed Comments Unknown Sex and Gender Information Value Date Recorded Sex Assigned at Not on file 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
--- OUTSIDE RECORDS SUMMARY | 2025-06-23 15:27 | XMS_ITS | Encounter Summary ---
Author Organization [facility] Address 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
--- OUTSIDE RECORDS SUMMARY | 2025-06-23 15:27 | XMS_ITS | Encounter Summary ---
Author Organization [facility] Address [address] [place] [address] Care Team Providers Care Gas Main Fitter Helper Name Role Phone Ryan Pritchard MD Primary Care Provider [phone] Encounter Details Date Type Department Care Team (Late st Contact Info) Description 12/05/2004 Outpatient Historical [facility] Primary Care - [place] 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 [place] [phone] PCP - General Family Practice 02/02/10 documented as of this encounter
--- OUTSIDE RECORDS SUMMARY | 2025-06-23 15:27 | XMS_ITS | Encounter Summary ---
Author Organization [facility] Address [address] [place] [address] Care Team Providers Care Nail Making Machine Setter Name Role Phone Ryan Pritchard MD Primary Care Provider [phone] Encounter Details Date Type Department Care Team (Late st Contact Info) Description 08/01/2003 Outpatient Historical [facility] Primary Care - [place] [address] [place] [phone] No Santos MD NO ADDRESS ON FILE Social History Tobacco Use Types Packs/Day Years Used Date Smoking Tobacco: Never Assessed Comments Unknown Sex and Gender Information Value Date Recorded Sex Assigned at Not on file Legal Sex Female 4:47 AM CELL LINER Gender Identity Not on file Sexual Orientation Not on file documented as of this encounter Plan of Treatment Not on file documented as of this encounter Visit Diagnoses Not on filedocumented in this encounter Care Teams Nail Making Machine Setter Relationship Specialty Start Date End Date Ryan Pritchard MD [address] [place] [phone] PCP - General Family Practice 02/02/10 documented as of this encounter
--- OUTSIDE RECORDS SUMMARY | 2025-06-23 15:27 | XMS_ITS | Clinical Summary ---
Author Organization [facility] Address [address] [place] [address] Care Team Providers Care Key Attendant Name Role Phone Unavailable Primary Care Provider Unavailabl e Source Comments [facility],non-owned Affiliates and Associated Physician Practices is amultiple site organization consisting of ambulatory clinics and hospital sitesin [place], [place], [place] and [place]. This disclosure is being madepursuant to the Care Everywhere program and may not contain all information available regarding this patient. Last updated 18.[facility] Allergies Active Allergy Reactions Criticality Noted Date Comments Fluconazole 03/10/2009 Medications * Be aware that medications may not be up to date on this document. Alwaysverify current medications with the patient. amoxicillin (AMOXIL) 500 MG tablet Take 1 Tab by mouth 2 times daily. 20 0 9 Active Additional Information Patient not taking.Reported on 06/23/2025 cetirizine (ZYRTEC) 10 MG tablet Take 10 mg by mouth daily. Active ciprofloxacin (CIPRO) 500 MG tablet Take 1 Tab by mouth every 12 hours. 20 0 9 Active Additional Information Patient not taking.Reason: Provider adjusted, Reported on 06/23/2025 neomycin-polymy quinton-hc (CORTISPORIN) 3.5-87915-2 otic suspension Instill 4 Drops into right ear 4 times daily. 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 03/07/2025 resulting from ass isted reproductive technology in second trimester: IUI 03/07/2025 Allergic rhinitis 03/10/2009 Overview (05/18/2015): Asthma 03/10/2009 Estimated Date of Delivery Comme nts Yes 07/18/2025 Based on Ultraso und Encounters Date Type Department Care Team Description 06/23/2025 1:02 PM FARM CONTRACTOR BUYER Hospital Encounter [facility] [address] [place] [address] Frank Horan MD 06/23/2025 1:00 PM FARM CONTRACTOR BUYER Hospital Encounter [facility] [address] [place] [address] Frank Horan MD INCUBATOR TENDER 05/30/2025 1:45 PM CDT - 05/30/2025 11:59 PM CDT Hospital Encounter [facility] [address] [place] [address] Frank Horan MD Discharge Disposition: Home or Self Care 05/12/2025 1:45 PM CDT Hospital Encounter [address] [phone] Danelle Kitchen MD Pediatric Cardiology Discharge Disposition: Home or Self Care 05/12/2025 1:45 PM CDT Hospital Encounter [address] [address] Danelle Kitchen MD Discharge Disposition: Home or Self Care 05/11/[address] [address] Cassia Armenta Appointment 05/06/2025 Orders Only [facility] [address] [place] [address] Meg Gomez RN 05/02/2025 2:30 PM CDT - 05/02/2025 11:59 PM CDT Hospital Encounter [facility] [address] [place] [phone] Head, Bella Bowen MD Discharge Disposition: Home or Self Care 04/04/2025 2:30 PM CDT - 04/04/2025 11:59 PM CDT Hospital Encounter [facility] [address] [place] [phone] Joanna Mendiola MD Discharge Disposition: Home or Self Care from Last 3 Months Family History Medical History Relation Name Comments Cancer Father Hypertension Father Cancer - Lung Maternal Grandmother Hypertension Mother Alzheimer's Disease Paternal Grandfather Relation Name Status Comments Father Maternal Grandmother Mother Paternal Grandfather Social History Tobacco Use Types Packs/Day Years [...] on file Legal Sex Female 4:23 AM FARM CONTRACTOR BUYER Gender Identity Not on file Sexual Orientation Not on file Last Filed Vital Signs Vital Sign Reading Time Taken Comments Blood Pressure 116/59 06/23/2025 1:39 PM FARM CONTRACTOR BUYER Pulse 81 06/23/2025 1:39 PM FARM CONTRACTOR BUYER Temperature 36.5 C (97.7 F) 03/11/2009 8:38 AM CDT Respiratory Rate - - Oxygen Saturation - - Inhaled Oxygen Concentration - - Weight 133.8 kg (295 lb) 06/23/2025 1:39 PM FARM CONTRACTOR BUYER Height 162.6 cm (5' 4) 06/23/2025 1:39 PM FARM CONTRACTOR BUYER Body Mass Index 50.64 06/23/2025 1:39 PM FARM CONTRACTOR BUYER Plan of Treatment Health Maintenance Due Date Last Done Comments HIV SCREENING 12/28/2003 HEPATITIS C SCREENING 12/23/2006 DTAP/TDAP/TD VACCINES (1 - Tdap) 12/28/2007 HEPATITIS B VACCINE (1 of 3 - 19+ 3-dose series) 12/28/2007 PNEUMOCOCCAL VACCINE (1 of 2 - PCV) 12/28/2007 PAP SMEAR 2009 HPV VACCINE (1 - 3-dose SCDM series) 12/28/2015 DEPRESSION SCREENING 08/18/2024 OB-ONE HOUR GLUCOSE 04/11/2025 COVID-19 VACCINE (3 - 2024-2 6 season) 2025 06/16/2021, 05/26/2021 INFLUENZA VACCINE (#1) 2025 07/01/2013 OB-TDAP CURRENT 04/18/2025 OB-RHOGAM INJECTION 04/25/2025 Respiratory Syncytial Virus (RSV) Vaccine Pt: or over 60 yrs (1 - Risk 1-dose series) 05/23/2025 OB-GROUP B STREP SCREEN 06/13/2025 ZOSTER VACCINE (1 of 2) 2038 HIB [...] Associated Diagnosis Comments SONOGRAM - COMPLETE Routine 05/30/2025 2:00 PM CDT AMA (advanced maternal age) multigravida 35+, third trimester (HCC) resulting from assisted reproductive technology in third trimester (HCC) Encounter for ultrasound to assess growth (HCC) Encounter for follow-up ultrasound of anatomy (HCC) Obesity affecting in third trimester, unspecified obesity type (HCC) ECHO COMPLETE CG Routine 05/12/2025 2:58 PM CDT Advanced maternal age, 1st , second trimester (HCC) Encounter for follow-up ultrasound of anatomy (HCC) SONOGRAM - COMPLETE Routine 05/02/2025 2:57 PM CDT Advanced maternal age, 1st , second trimester (HCC) resulting from assisted reproductive technology in second trimester: IUI Encounter for follow-up ultrasound of anatomy (HCC) Encounter for ultrasound to assess growth (HCC) Obesity affecting in second trimester, unspecified obesity type (HCC) SONOGRAM - COMPLETE Routine 04/04/2025 2:47 PM CDT Advanced maternal age, 1st , second trimester (HCC) resulting from assisted reproductive technology in second trimester: IUI Encounter for follow-up ultrasound of anatomy (HCC) Encounter for ultrasound to assess growth (HCC) from Last 3 Months Results * Sonogram - Complete (05/30/2025 2:00 PM CDT) Only the most recent of3 resultswithin the time period is included. Linked Results Indication ======== Encounter for screening for malformations Echo 05/12/25 resulting from assisted reproductive technique Advanced maternal age (AMA), primigravida Obesity complicating , Class 3 - BMI of 40.0 or greater Maternal Assessment Physical Exam Height 163 cm, 5 ft 4 in. Weight 134 kg, 296 lb. Initial weight 131 kg, 289 lb. BMI 50.81 kg/m . Initial BMI 49.61 kg/m . Weight gain 3 kg, 7 lb Method ====== Transabdominal ultrasound. View: Suboptimal view: limited by position and maternal body habitus. ========= Huang . Number of fetuses: 1 Dating ====== Date Details Gest. age SHILPA Stated SHILPA 33 w + 0 d 07/18/2025 U/S 05/30/2025 based upon AC, BPD, Femur, HC 34 w + 3 d 07/08/2025 Assigned dating based on stated SHILPA, selected on 03/07/2025 33 w + 0 d 07/18/2025 General Evaluation Cardiac activity present. FHR 156 bpm. Presentation: cephalic Placenta: Placental site: anterior Umbilical cord: Cord vessels: 3 vessel cord. Insertion site: normal insertion Amniotic fluid: Amount of AF: normal. MVP 4.4 cm. WILLIE 13.0 cm. Q1 4.4 cm, Q2 2.6 cm, Q3 3.4 cm, Q4 2.6 cm Biometry BPD 85.9 mm 34w 4d 87% Hadlock HC 312.7 mm 35w 0d 67% Hadlock AC 303.3 mm 34w 2d 85% Hadlock Femur 65.4 mm 33w 5d 58% Hadlock HC / AC 1.03 Weight Calculation: EFW 2,382 g 78% Hadlock EFW (lb,oz) 5 lb 4 oz EFW by Hadlock ([id number]) appropriate Growth Overview Exam date GA BPD [...] 67% 303.3 85% 65.4 58% 2382 78% Anatomy The following structures appear normal: Heart / Thorax Diaphragm. Abdomen Stomach. Kidneys. Bladder. The following structures could not be adequately visualized: Heart / Thorax 9-[id number]-[id number] view. Bicaval view. Ductal arch view. Great vessels. Right lung. Left lung. The following structures were documented previously: Head / Neck Cranium. Lateral ventricles. Choroid plexus. Midline falx. Cavum septi pellucidi. Cerebellum. Cisterna magna. Thalami. Nuchal fold. Face Lips. Profile. Nose. Nasal bone. Orbits. Heart / Thorax 4-chamber view. RVOT view. LVOT view. 3-vessel view. Situs. Aortic arch view. Abdomen Cord insertion. Bowel. Genitals. Spine Cervical spine. Thoracic spine. Lumbar spine. Sacral spine. Extremities / Skeleton Arms. Hands. Legs. Feet. Impression ========= Single, live, intrauterine at 33w 0d. The size is appropriate. The amniotic fluid volume is normal. No major malformations were seen within the limitations of ultrasound. Comment ======== ultrasound alone cannot detect all structural, genetic, or functional , placental, or maternal abnormalities. Follow-up ======== Start weekly testing at 36 weeks due to obesity per [facility] protocol. Repeat growth in 4 weeks. Post- echo to evaluate aortic arch per recommendations of pediatric cardiology (see 05/12 echo report). Coding ====== Diagnoses O09.513: Supervision of elderly primigravida O99.213, E66.813: Obesity complicating , Class 3 - BMI of 40.0 or greater O09.813: Supervision of resulting from assisted reproductive technology Z36.3: Encounter for screening for malformations Procedures 73331: US Preg Uterus Follow Up [facility]plane [facility] Anatomical Region Laterality Modality Other 05/30/2025 2:00 PM CDT us Foster Dudley MD [facility] ORDERABLES Edited Result - Final * ECHO COMPLETE CG (05/12/2025 2:58 PM CDT) MV E pk augie 45.41 cm/s [facility] CV F UJI PACS MV A pk augie 53.09 cm/s [facility] CV F UJI PACS Anatomical Region Laterality Modality Ultrasound 05/12/2025 2:03 PM CDT Narrative 05/12/2025 3:29 PM CDT Name: Lindsey Adames Patient Exam Info Gender: Female Patient Status: O/P : 1990 Admit Date: 05/12/2025 Exam Date/Time: 05/12/2025 2:03 PM Site: [facility] Current Location: CARE EStaffOrdering Provider: Bella Bowen Head Interpreting Physician: Danelle Kitchen MD Credit Adjuster: Rosalie Alberts [facility] Study Info Procedure: ECHO COMPLETE CG Indications: O09.512 - Advanced maternal age, 1st , second trimester (HCC) Z36.2 - Encounter for follow-up ultrasound of anatomy ([facility]) Maternal Gestational Status GA by EDC: 30 wks , 3 days Count: 1 EDC: 07/18/2025 Type: Huang Procedure Details * Number of fetuses is 1. Age: 34 yrs Summary * Technically difficult/suboptimal echocardiogram due to lie and activity. * Mild aortic isthmus hypoplasia, may be normal variant. * Otherwise, the echocardiogram appeared to be within normal limits. * Small atrial and ventricular septal defects and persistent ductus arteriosus cannot be excluded as findings. Recommendations * Recommend echocardiogram to reevaluate the aortic arch. Anatomic Relationships Left sided cardiac apex (levocardia). There is normal visceral-cardiac situs, and normal segmental cardiac anatomical relationship. Systemic Veins There is normal systemic venous return. Pulmonary Veins The visualized pulmonary veins drain normally to the left atrium. Right Atrium The right atrial size is normal. Left Atrium The left atrial size is normal. Atrial Septum Patent foramen ovale with open foramen flap. Color flow is right to left. Right Ventricle The right ventricular cavity size is normal. The right ventricular wall thickness is normal. The right ventricular systolic function is normal. RV Outflow Tract The right ventricular outflow tract is normal. Left Ventricle The left ventricular cavity size is normal. The left ventricular wall thickness is normal. The left ventricular systolic function is normal. Ventricular Septum There is no ventricular septal defect with no shunting. LV Outflow Tract The left ventricular outflow tract is normal. Tricuspid Valve The tricuspid valve is structurally normal. The tricuspid inflow pattern is normal. Tricuspid velocity is within the normal range. There is no tricuspid regurgitation. Mitral Valve The mitral valve is structurally normal. The mitral inflow pattern is normal. Mitral velocity is within the normal range. There is no mitral regurgitation. Aorta aortic arch visualized in a limited fashion. Aortic isthmus appears mildly hypoplastic, may be normal variant. Pulmonary Arteries The main pulmonary artery is normal, with confluent branch pulmonary arteries. Ductus Arteriosus The antegrade flow velocity and pattern in the ductal arch is normal. A normal ductus arteriosus is appreciated. Doppler Flow in the ductus venosus is normal. The umbilical vein flow pattern is normal. The umbilical artery flow pattern is normal. Hydrops Assessment No pericardial effusion. No ascites present. No pleural effusion(s). Rhythm The rhythm is normal. There is 1:1 AV conduction. Pulmonary Valve The pulmonic valve is normal-sized. The transpulmonic velocity is within normal range. There is no pulmonic regurgitation. Aortic Valve The aortic valve is normal-sized. The transaortic velocity is within normal range. There is no aortic regurgitation. Doppler Measurements (Fetus A) Atrioventricular Valves Name Value Normal Z-Score Percentile Atrioventricular Valves Doppler TV E Peak Velocity 0.4 m/s TV A Peak Velocity 0.6 m/s MV E Peak Velocity 0.5 m/s MV A Peak Velocity 0.5 m/s Report Signatures Finalized by Danelle Kitchne MD on 05/12/2025 03:29 PM Procedure Note Danelle Kitchen MD - 05/12/2025 Name: Lindsey Adames Patient Exam Info Gender: Female Patient Status: O/P : 1990 Admit Date: 05/12/2025 Exam Date/Time: 05/12/2025 2:03 PM Site: [facility] Current Location: CARE EStaffOrdering Provider: Bella Bowen Head Interpreting Physician: Danelle Kitchen MD Credit Adjuster: Rosalie Alberts [facility] Study Info Procedure: ECHO COMPLETE CG Indications: O09.512 - Advanced maternal age, 1st , second trimester(HCC) Z36.2 - Encounter for follow-up ultrasound of anatomy ([facility]) Maternal Gestational Status GA by EDC: 30 wks , 3 days Count: 1 EDC: 07/18/2025 Type: Huang Procedure Details * Number of fetuses is 1. Age: 34 yrs Summary * Technically difficult/suboptimal echocardiogram due to lie andfetal activity. * Mild aortic isthmus hypoplasia, may be normal variant. * Otherwise, the echocardiogram appeared to be within normallimits. * Small atrial and ventricular septal defects and persistent ductus arteriosus cannot be excluded as findings. Recommendations * Recommend echocardiogram to reevaluate the aortic arch. Anatomic Relationships Left sided cardiac apex (levocardia). There is normal visceral-cardiac situs, and normal segmental cardiac anatomical relationship. Systemic Veins There is normal systemic venous return. Pulmonary Veins The visualized pulmonary veins drain normally to the left atrium. Right Atrium The right atrial size is normal. Left Atrium The left atrial size is normal. Atrial Septum Patent foramen ovale with open foramen flap. Color flow is right toleft. Right Ventricle The right ventricular cavity size is normal. The right ventricularwall thickness is normal. The right ventricular systolic function is normal. RV Outflow Tract The right ventricular outflow tract is normal. Left Ventricle The left ventricular cavity size is normal. The left ventricular wall thickness is normal. The left ventricular systolic function is normal. Ventricular Septum There is no ventricular septal defect with no shunting. LV Outflow Tract The left ventricular outflow tract is normal. Tricuspid Valve The tricuspid valve is structurally normal. The tricuspid inflow patternis normal. Tricuspid velocity is within the normal range. There is notricuspid regurgitation. Mitral Valve The mitral valve is structurally normal. The mitral inflow pattern is normal. Mitral velocity is within the normal range. There is no mitral regurgitation. Aorta aortic arch visualized in a limited fashion. Aortic isthmusappears mildly hypoplastic, may be normal variant. Pulmonary Arteries The main pulmonary artery is normal, with confluent branch pulmonary arteries. Ductus Arteriosus The antegrade flow velocity and pattern in the ductal arch is normal.A normal ductus arteriosus is appreciated. Doppler Flow in the ductus venosus is normal. The umbilical vein flow patternis normal. The umbilical artery flow pattern is normal. Hydrops Assessment No pericardial effusion. No ascites present. No pleural effusion(s). Rhythm The rhythm is normal. There is 1:1 AV conduction. Pulmonary Valve The pulmonic valve is normal-sized. The transpulmonic velocity iswithin normal range. There is no pulmonic regurgitation. Aortic Valve The aortic valve is normal-sized. The transaortic velocity is withinnormal range. There is no aortic regurgitation. Doppler Measurements (Fetus A) Atrioventricular Valves Name Value Normal Z-ScorePercentile Atrioventricular Valves Doppler TV E Peak Velocity 0.4 m/s TV A Peak Velocity 0.6 m/s MV E Peak Velocity 0.5 m/s MV A Peak Velocity 0.5 m/s Report Signatures Finalized by Danelle Kitchen MD on 05/12/2025 03:29 PM Bella BECK Final Result from Last 3 Months Insurance [facility] Address: [facility] [id number] [place] [address]
--- OUTSIDE RECORDS SUMMARY | 2025-06-23 15:27 | XMS_ITS | Encounter Summary ---
Author Organization [facility] Address [address] [place] [address] Care Team Providers Care Mutual Fund Analyst Name Role Phone Ryan Pritchard MD Primary Care Provider [phone] Encounter Details Date Type Department Care Team (Late st Contact Info) Description 12/19/2003 Outpatient Historical [facility] Primary Care - [place] [address] [place] [address] No Santos MD NO ADDRESS ON FILE Social History Tobacco Use Types Packs/Day Years Used Date Smoking Tobacco: Never Assessed Comments Unknown Sex and Gender Information Value Date Recorded Sex Assigned at Not on file Legal Sex Female 4:47 AM PRECAST MOLDER Gender Identity Not on file Sexual Orientation Not on file documented as of this encounter Plan of Treatment Not on file documented as of this encounter Visit Diagnoses Not on filedocumented in this encounter Care Teams Mutual Fund Analyst Relationship Specialty Start Date End Date Ryan Pritchard MD [address] [place] [phone] PCP - General Family Practice 02/02/10 documented as of this encounter
== END 2025-06-22 13:40 | disposition home or self-care (01) ==
LOC: ANHOBOP 17:37
PROVIDERS: Nurse Practitioner Obstetrics & Gynecology; Visit Provider Obstetrics & Gynecology
DX: O13.9 Gestational [pregnancy-induced] hypertension without significant proteinuria, unspecified trimester (principal); Z3A.00 Weeks of gestation of pregnancy not specified
CPT/HCPCS: 36415; 59025; 80053; 81001; 82570; 84156; 84550; 85025; 86593; 86703; G0432

== ENCOUNTER 2025-06-23 16:55 | Outpatient (NON) | payer OTHER, SELFPAY ==
--- OUTSIDE RECORDS SUMMARY | 2025-06-23 13:00 | XMS_ITS | Encounter Summary ---
Author Organization [facility] Address [address] [facility] [place] [address] Care Team Providers Care Hand Shaper Name Role Phone Unavailable Primary Care Provider Unavailabl e Reason for Referral * (Routine) - Open Specialty Diagnoses / Procedures Referred By Harry t Referred To Contact Diagnoses resulting from assisted reproductive technology in third trimester (HCC) Encounter for ultrasound to assess growth (HCC) Gestational diabetes mellitus (GDM) in third trimester, gestational diabetes method of control unspecified (HCC) Obesity affecting in third trimester, unspecified obesity type (HCC) 36 weeks gestation of (HCC) Advanced maternal age, primigravida, antepartum (HCC) Procedures Biophysical Profile w NST Foster Lozano MD [address] [facility] [address] [place] [address] Phone: tel: fax: Referral ID Status Reason Start Date Expiration Date Visits Re quested Visits Authorized [id number] Open 06/21/2025 06/21/2026 1 1 NOLOGY INTERNSHIP * Consultation (Routine) - Open Specialty Diagnoses / Procedures Referred By Contjennifer reddy Referred To Contact Maternal Medicine Diagnoses resulting from assisted reproductive technology in third trimester (HCC) Encounter for ultrasound to assess growth (HCC) Gestational diabetes mellitus (GDM) in third trimester, gestational diabetes method of control unspecified (HCC) Obesity affecting in third trimester, unspecified obesity type (HCC) 36 weeks gestation of (HCC) Advanced maternal age, primigravida, antepartum (HCC) Foster Lozano MD [address] [facility] [address] [place] [phone] Phone: tel: fax: [facility] [address] [place] [address] Phone: tel: fax: Referral ID Status Reason Start Date Expiration Date V isits Requested Visits Authorized [id number] Open Specialty Services Required 06/21/2025 06/21/2026 3 3 NOLOGY INTERNSHIP * (Routine) - Open Specialty Diagnoses / Procedures Referred By Harry reddy Referred To Contact Diagnoses resulting from assisted reproductive technology in third trimester (HCC) Encounter for ultrasound to assess growth (HCC) Gestational diabetes mellitus (GDM) in third trimester, gestational diabetes method of control unspecified (HCC) Obesity affecting in third trimester, unspecified obesity type (HCC) 36 weeks gestation of (HCC) Advanced maternal age, primigravida, antepartum (HCC) Procedures Biophysical Profile w NST Foster Lozano MD [address] [facility] [address] [place] [address] Phone: tel: fax: Referral ID Status Reason Start Date Expiration Date Visits Re quested Visits Authorized [id number] Open 06/21/2025 06/21/2026 1 1 NOLOGY INTERNSHIP Reason for Visit * Reason Comments Maternal Medicine Ultrasound Diabetes Non-stress Test * Consultation (Routine) - Open Specialty Diagnoses / Procedures Referred By Harry reddy Referred To Contact Maternal Medicine Diagnoses resulting from assisted reproductive technology in third trimester (HCC) Encounter for ultrasound to assess growth (HCC) Gestational diabetes mellitus (GDM) in third trimester, gestational diabetes method of control unspecified (HCC) Obesity affecting in third trimester, unspecified obesity type (HCC) 36 weeks gestation of (HCC) Advanced maternal age, primigravida, antepartum (HCC) Foster Lozano MD [address] [facility] [address] [place] [address] Phone: tel: fax: [facility] [address] [place] [address] Phone: tel: fax: Referral ID Status Reason Start Date Expiration Date V isits Requested Visits Authorized [id number] Open Specialty Services Required 06/21/2025 06/21/2026 3 3 Encounter Details Date Type Department Care Team (Late st Contact Info) Description 06/23/2025 1:00 PM TECHNOLOGY INTERNSHIP Hospital Encounter [facility] [address] [place] [address] Frank Horan MD [address] [facility] [address] [place] [address] HAND STONECUTTER Social History Tobacco Use Types Packs/Day Years Used Date Smoking Tobacco: Never Smokeless Tobacco: Never Alcohol Use Standard Drinks/Week Comments No 0 (1 standard drink = 0.6 oz pur e alcohol) Estimated Date of Delivery Comme nts Yes 07/18/2025 Based on Ultraso und Sex and Gender Information Value Date Recorded Sex Assigned at Not on file Legal Sex Female 4:23 AM TECHNOLOGY INTERNSHIP Gender Identity Not on file Sexual Orientation Not on file documented as of this encounter Progress Notes * Annabella Galan, TORY - 06/23/2025 3:55 PM CST Name: Lindsey Adames Date of : 1990 Today's Date: 06/23/2025 36w3d NST RESULTS (JOVEL) OBJECTIVE FINDINGS , , , NST Indication(s): Gestational diabetes, Other (Comment) (obesity) Uterine Irritability: No Contractions: Not present OBJECTIVE FINDINGS Movement: Present Monitoring Mode: External Baseline: 135 BPM Variability: Moderate Decelerations: None Accelerations: Yes OTHER INFORMATION Annabella Galan RN NOLOGY INTERNSHIP * Teresita Batres RN - 06/23/2025 1:07 PM CST Diabetes Self Management Education and Support Lindsey Adames is a 34 year old [id number] Date of Delivery: 07/18/25 Patient seen today for Initial Diabetes Self Management Education ( DSME) for GDM DSME content and documentation follows. Pt accompanied by: fob and mother in law History of Diabetes: denies family history of diabetes. Passed GCT, but large baby growth in 3rd trimester. Did not pass GTT. Barriers to Learning: none Knowledge/Skills presented: Diabetes Definition and Symptoms Risk factors Types of diabetes Normal and target blood glucose levels Changing insulin requirements during Reason for obtaining Normal BG levels Maternal / risks 3rd trimester high weight infant, difficulty breathing, hypoglycemia, retarded lung maturity, still , and materal ketoacidosis and preeclampsia Blood Glucose Monitoring Pt is wearing a Dexcom. TIR 58% Average glucose is 129 mg/dl. 0% hypoglycemia No excursions for meals---fasting readings high range 94 to 104 mg/dl Generally 130 to 140 mg/dl all day long Reviewed all with Dr. Flores. Healthy Eating/Meal Planning Choosing healthy types and amounts of carbohydrates Foods to avoid: juice, soda, fruit in morning, sweets Importance of regular eating 3 meals and 3 snacks Label reading / Carbohydrate counting Factors that affect blood sugar levels Food, activity, insulin type/amount, stress/illness Hyperglycemia Prevention, symptoms, treatment Reporting of high blood glucose levels to MD Dangers of high blood glucose levels Hypoglycemia Prevention, symptoms, treatment Reporting of low blood glucose levels to MD Dangers of low blood glucose levels Using medications for blood glucose control Pt to start modified weight based insulin today per Dr. Flores. Lantus 10 units at HS. Instructed on insulin action times, administration with pen, injection sites and rotation, storage, disposal. Also discussed hypoglycemia prevention, symptoms, and treatment (including Baqsimi use.) . Also provided with brochures to reinforce teaching. Pt did return demonstration without difficulty. States understanding of instructions provided. Asked to report blood glucose in 5 days or sooner if she experiences any hypoglycemia. Sent prescriptions for Dexcom, Lantus, pen needles, Baqsimi to pharmacy on record. Prevention of T2 Diabetes/ 6 week bg check Receptive to teaching: yes Understanding of instructions: yes Instructed to record glucose fasting and 1 hour after each meal and keep records of blood glucose, food and exercise in dexcom paty. Stressed the importance of bringing meter and logs to each appointment. Provided Diabetes and Nutrition Manual and log sheets and phone # and email address. Answered all questions. Pt states understanding of instructions provided. NOLOGY INTERNSHIP documented in this encounter Plan of Treatment Scheduled Referrals Name Type Priority Associated Diagnoses Orde r Schedule AMB REFERRAL TO MATERNAL- MEDICINE Outpatient Referral Routine resulting from assisted reproductive technology in third trimester (HCC) Encounter for ultrasound to assess growth (HCC) Gestational diabetes mellitus (GDM) in third trimester, gestational diabetes method of control unspecified (HCC) Obesity affecting in third trimester, unspecified obesity type (HCC) 36 weeks gestation of (HCC) Advanced maternal age, primigravida, antepartum (HCC) 1 Occurrences starting 06/21/2025 until 06/21/2026 documented as of this encounter Procedures Procedure Name Priority Date/Time Associated Diagnosis Comments BIOPHYSICAL PROFILE W NST Routine 06/23/2025 1:05 PM TECHNOLOGY INTERNSHIP resulting from assisted reproductive technology in third trimester (HCC) Encounter for ultrasound to assess growth (HCC) Gestational diabetes mellitus (GDM) in third trimester, gestational diabetes method of control unspecified (HCC) Obesity affecting in third trimester, unspecified obesity type (HCC) 36 weeks gestation of (HCC) Advanced maternal age, primigravida, antepartum (HCC) documented in this encounter Results * Biophysical Profile w NST (06/23/2025 1:05 PM TECHNOLOGY INTERNSHIP) Linked Results Indication ======== Encounter for screening for malformations echo 05/12: 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 Para 0 Maternal Assessment Physical Exam Height 163 cm, 5 ft 4 in. Weight 134 kg, 295 lb. Initial weight 131 kg, 289 lb. BMI 50.64 kg/m . Initial BMI 49.61 kg/m . Weight gain 3 kg, 6 lb Method ====== Transabdominal ultrasound. View: Suboptimal view: limited by late gestational age. limited secondary to challenging acoustic properties ========= Jovel . Number of fetuses: 1 Dating ====== Date Details Gest. age SHILPA Stated SHILPA 36 w + 3 d 07/18/2025 U/S 06/23/2025 based upon AC, BPD, Femur, HC 37 w + 0 d 07/14/2025 Assigned dating based on stated SHILPA, selected on 03/07/2025 36 w + 3 d 07/18/2025 General Evaluation Cardiac activity present. FHR 148 bpm. movements: visualized. Presentation: cephalic Placenta: Placental site: anterior Amniotic fluid: Amount of AF: normal. MVP 6.6 cm. WILLIE 14.7 cm. Q1 2.4 cm, Q2 6.6 cm, Q3 5.0 cm, Q4 0.6 cm Biometry BPD 91.2 mm 37w 0d 76% Hadlock HC 320.5 mm 36w 1d 16% Hadlock AC 351.0 mm 39w 0d 99% Hadlock Femur 70.2 mm 36w 0d 35% Hadlock Humerus 60.6 mm 35w 1d 38% Martinez HC / AC 0.91 Weight Calculation: EFW 3,301 g 85% Hadlock EFW (lb,oz) 7 lb 4 oz EFW by Hadlock ([id number]) appropriate Growth Overview Exam date GA BPD (mm) HC (mm) AC (mm) FL (mm) HL (mm) EFW (g) 03/07/2025 21w 0d 51.5 73% 183.6 29% 171.9 79% 39.7 92% 35.2 82% 487 95% 04/04/2025 25w 0d 66.1 90% 242.1 75% 227.2 93% 47.5 64% 45.7 94% 954 95% 05/02/2025 29w 0d 78.5 96% 285.3 84% 263.1 84% 58 73% 48 21% 1599 89% 05/30/2025 33w 0d 85.9 87% 312.7 67% 303.3 85% 65.4 58% 2382 78% 06/23/2025 36w 3d 91.2 76% 320.5 16% 351 99% 70.2 35% 60.6 38% 3301 85% Anatomy The following structures could not be adequately visualized: Heart / Thorax 5-[id number]-[id number] view. Bicaval view. Ductal arch view. Great vessels. Right lung. Left lung. The following structures were documented previously: Head / Neck Cranium. Lateral ventricles. Choroid plexus. Midline falx. Cavum septi pellucidi. Cerebellum. Cisterna magna. Thalami. Nuchal fold. Face Lips. Profile. Nose. Nasal bone. Orbits. Heart / Thorax 4-chamber view. RVOT view. LVOT view. 3-vessel view. Situs. Aortic arch view. Diaphragm. Abdomen Cord insertion. Stomach. Kidneys. Bladder. Bowel. Genitals. Spine Cervical spine. Thoracic spine. Lumbar spine. Sacral spine. Extremities / Skeleton Arms. Hands. Legs. Feet. Biophysical Profile 2: breathing movements 2: Gross body movements 2: tone 2: Amniotic fluid volume NST: reactive 10 Biophysical profile score Non Stress Test NST interpretation: reactive. Baseline FHR 120 bpm. Baseline variability: moderate. Accelerations: present. Decelerations: absent. Uterine activity: absent. Acoustic stimulation: no Impression ========= Single, live, intrauterine at 36w 3d The size is appropriate. The amniotic fluid volume is normal. No major malformations were seen within the limits of ultrasound. Biophysical profile 10/10 Comment ======== ultrasound alone cannot detect all structural, genetic, or functional , placental, or maternal abnormalities Follow-up ======== Initiate 2x weekly BPP with 2x weekly NST Coding ====== Diagnoses O09.513: Supervision of elderly primigravida O99.213, E66.813: Obesity complicating , Class 3 - BMI of 40.0 or greater O09.813: Supervision of resulting from assisted reproductive technology Z36.3: Encounter for screening for malformations NOME PACS Anatomical Region Laterality Modality Other 06/23/2025 1:05 PM TECHNOLOGY INTERNSHIP Foster Dudley MD [facility] Edited Result - Final documented in this encounter Visit Diagnoses Diagnosis AMA (advanced maternal age) multigravida 35+, third trimester (HCC)- Primary resulting from assisted reproductive technology in third trimester (HCC) Encounter for ultrasound to assess growth (HCC) Gestational diabetes mellitus (GDM) in third trimester, gestational diabetes method of control unspecified (HCC) Obesity affecting in third trimester, unspecified obesity type (HCC) 36 weeks gestation of (HCC) state, incidental Advanced maternal age, primigravida, antepartum (HCC) Elderly primigravida, antepartum documented in this encounter
--- OUTSIDE RECORDS SUMMARY | 2025-06-23 13:02 | XMS_ITS | Encounter Summary ---
Author Organization [facility] Address [address] [facility] [place] [address] Care Team Providers Care Human Resources Intern Name Role Phone Unavailable Primary Care Provider Unavailabl e Reason for Referral * Consultation (Routine) - Open Specialty Diagnoses / Procedures Referred By Harry t Referred To Contact Maternal Medicine Diagnoses resulting from assisted reproductive technology in third trimester (HCC) Encounter for ultrasound to assess growth (HCC) Gestational diabetes mellitus (GDM) in third trimester, gestational diabetes method of control unspecified (HCC) Obesity affecting in third trimester, unspecified obesity type (HCC) 36 weeks gestation of (HCC) Advanced maternal age, primigravida, antepartum (HCC) Foster Lozano MD [address] [facility] [address] [address] Phone: tel: fax: [facility] [address] [place] [address] Phone: tel: fax: Referral ID Status Reason Start Date Expiration Date V isits Requested Visits Authorized [id number] Open Specialty Services Required 06/21/2025 06/21/2026 3 3 NSIC TOXICOLOGIST Reason for Visit * Reason Comments Maternal Medicine Non-stress Test Ultrasound Diabetes * Consultation (Routine) - Open Specialty Diagnoses / Procedures Referred By Contac t Referred To Contact Maternal Medicine Diagnoses resulting from assisted reproductive technology in third trimester (HCC) Encounter for ultrasound to assess growth (HCC) Gestational diabetes mellitus (GDM) in third trimester, gestational diabetes method of control unspecified (HCC) Obesity affecting in third trimester, unspecified obesity type (HCC) 36 weeks gestation of (HCC) Advanced maternal age, primigravida, antepartum (HCC) Foster Lozano MD [address] [facility] [address] [place] [address] Phone: tel: fax: [facility] Maternal & Care [address] [place] [address] Phone: tel: fax: Referral ID Status Reason Start Date Expiration Date V isits Requested Visits Authorized [id number] Open Specialty Services Required 06/21/2025 06/21/2026 3 3 Encounter Details Date Type Department Care Team (Late st Contact Info) Description 06/23/2025 1:02 PM FORENSIC TOXICOLOGIST Hospital Encounter [facility] Maternal & Care [address] [place] [address] Frank Horan MD [address] [facility] [address] [place] [address] Social History Tobacco Use Types Packs/Day Years Used Date Smoking Tobacco: Never Smokeless Tobacco: Never Tobacco Cessation:Counseling Given: Not Answered Alcohol Use Standard Drinks/Week Comments No 0 (1 standard drink = 0.6 oz pur e alcohol) Estimated Date of Delivery Comme nts Yes 07/18/2025 Based on Ultraso und Sex and Gender Information Value Date Recorded Sex Assigned at Not on file Legal Sex Female 4:23 AM FORENSIC TOXICOLOGIST Gender Identity Not on file Sexual Orientation Not on file documented as of this encounter Last Filed Vital Signs Vital Sign Reading Time Taken Comments Blood Pressure 116/59 06/23/2025 1:39 PM FORENSIC TOXICOLOGIST Pulse 81 06/23/2025 1:39 PM FORENSIC TOXICOLOGIST Temperature - - Respiratory Rate - - Oxygen Saturation - - Inhaled Oxygen Concentration - - Weight 133.8 kg (295 lb) 06/23/2025 1:39 PM FORENSIC TOXICOLOGIST Height 162.6 cm (5' 4) 06/23/2025 1:39 PM FORENSIC TOXICOLOGIST Body Mass Index 50.64 06/23/2025 1:39 PM FORENSIC TOXICOLOGIST documented in this encounter Progress Notes * Annabella Galan RN - 06/23/2025 2:10 PM CST New patient here at 36w3d for ultrasound, NST, DE and virtual MFM provider visit due to GDM. Denies pain or vaginal bleeding. Denies headache, visual changes, or RUQ pain. Reports feeling movement. Medical history and OB history reviewed. Home medications reviewed; vital signs WNL. Urine dip today = 1+ protein, 1+ ketones NIPT = low risk male Bpp 8/8 today, NST reactive. See notes per ELIZA and Dr. Flores for further plan of care. MFM follow up: diabetic log email/JamKazamhart review next week on Friday Patient prefers to schedule 2x weekly testing with her primary OB. BP 116/59 Pulse 81 Ht 1.626 m (5' 4) Wt 133.8 kg (295 lb) NSIC TOXICOLOGIST documented in this encounter Consult Notes * Lincoln Flores MD - 06/23/2025 4:40 PM CST MFM Consultation Today's visit was conducted virtually. The patient has given verbal consent to have today's visit conducted virtually and understands the risks, benefits and alternatives associated with telemedicine. Patient location: [place] This encounter was performed using: audio and video Total time spent on visit on date of encounter is: 30 minutes with 30 minutes spent in medical discussion. Ms. Adames is a 34 yo at 36 w 3 d with an SHILPA of 07/18/25. She is seen today at the request of Foster Dudley MD regarding new diagnosis of gestational diabetes. She is overall doing well without complaints she denies s/sx of PTL or preeclampsia. Her is complicated by a BMI of 53. She was dx with GDM on 06/13 with an elevated fasting of 107 and 1 hr of 180 the 2 and 3 hour figures were normal. She had a 1hr GTT screen on 138. She has a low risk NIPT. Growth exams have been normal and she had a echo that was overall normal but a possible smallaortic arch that will be reassessed postnatally. She met with our primary special educator today who reviewed her logs and noted that her blood sugars are 52% within range. Patient Vitals for the past 6 hrs: Pulse BP 06/23/25 1339 81 116/59 Past Medical History[1] Past Surgical History[2] Family History[3] MEDICATIONS FOR CURRENT ENCOUNTER: SCHEDULED MEDICATIONS: No current facility-administered medications for this encounter. CONTINUOUS MEDICATIONS: No current facility-administered medications for this encounter. PRN MEDICATIONS: No current facility-administered medications for this encounter. Allergy Imaging: SIUP with measurements consistent with dates. However, AC is elevated. Please see report for details. Impression/Counseling: I discussed with Ms. Adames the diagnosis of GDM. We discussed her elevated blood sugars. We discussed the complications related to GDM to include preeclampsia, macrosomia, trauma, delivery, hypoglycemia and stillbirth. As a result we recommended starting night time weight base Lantus of 10 u. In addition, meal insulin isn't recommended as she doesn't have increases.. We recommend 2x weekly testing with plan for delivery betweeen 37-39 pending and maternal status. We discussed the 50% chance of T2DM in the next 10 years and we recommend screening 12 weeks after delivery and annually afterwards. We discussed a plan for weight management and lifestyle modifications to reduce her risk for T2DM. All questions answered Lincoln Barger MD [1] Past Medical History: Diagnosis Date PCOS (polycystic ovarian syndrome) [2] Past Surgical History: Procedure Laterality Date EAR SURGERY paper patch hole in ear drum, age 9 [3] Family History Problem Relation Name Age of Onset Alzheimer's Disease Paternal Grandfather Cancer - Lung Maternal Grandmother Cancer Father Hypertension Father Hypertension Mother NSIC TOXICOLOGIST documented in this encounter Plan of Treatment Scheduled Referrals Name Type Priority Associated Diagnoses Order Schedule AMB REFERRAL TO MATERNAL- MEDICINE Outpatient Referral Routine 1 Occurrence s starting 06/23/2025 until 06/23/2025 documented as of this encounter Visit Diagnoses Diagnosis resulting from assisted reproductive technology in third trimester (HCC)- Primary Encounter for ultrasound to assess growth (HCC) Gestational diabetes mellitus (GDM) in third trimester, gestational diabetes method of control unspecified (HCC) Obesity affecting in third trimester, unspecified obesity type (HCC) 36 weeks gestation of (HCC) state, incidental Advanced maternal age, primigravida, antepartum (HCC) Elderly primigravida, antepartum documented in this encounter
[2025-06-23 17:10] VITALS: BMI 50.7
[2025-06-23 18:44] LABS: Total Volume 24 Hour Urine 500 ml
[2025-06-23 18:45] LABS: Total Volume 24 Hour Urine 500 ml
[2025-06-23 18:51] LABS: Serum Creat 0.53
[2025-06-23 19:16] LABS: Total Protein Urine 24 Hr 40 mg/24hr (28-141); Total Protein Urine Random 8 mg/dL
[2025-06-23 19:21] LABS: Creatinine Clearance Urine 92.5 ml/min (75-125)
--- OUTSIDE RECORDS SUMMARY | 2025-06-23 21:09 | XMS_ITS | Clinical Summary ---
Author Organization [facility] Address [address] [place] [address] Care Team Providers Care Book Illustrator Name Role Phone Unavailable Primary Care Provider Unavailabl e Source Comments [id number],non-owned Affiliates and Associated Physician Practices is amultiple site organization consisting of ambulatory clinics and hospital sitesin [place], [place], [place] and [place]. This disclosure is being madepursuant to the Care Everywhere program and may not contain all information available regarding this patient. Last updated 18.[facility] Allergies Active Allergy Reactions Criticality Noted Date [...] not taking.Reason: Provider adjusted, Reported on 06/23/2025 neomycin-polymyx in-hc (CORTISPORIN) 3.5-16749-3 otic suspension Instill 4 Drops into right ear 4 times daily. 10ml 0 9 Active Docosahexaenoic Acid 200 MG DAILY 5 Active diphenhydrAMINE HCl, Sleep, 25 MG Take 25 mg by mouth every 6 hours as needed Active Acetaminophen (Tylenol) 325 MG CAPS Active guaiFENesin ER 12hr (Mucinex) 600 MG tablet Take 1 (one) tablet by mouth every 12 hours Active Continuous Glucose Sensor (Dexcom G7 Sensor) MISCIndications: Gestational diabetes mellitus (GDM) in third trimester, gestational diabetes method of control unspecified (HCC) Use 1 Each every 10 days 3 Each 1 5 Active Lantus SoloStar pen Inject 10 units at bedtime. 3 mL 1 5 Active insulin pen needle (Novofine 31) 31G X 5 MM needleIndication s:Gestational diabetes mellitus (GDM) in third trimester, gestational diabetes method of control unspecified (HCC) by Injection route once daily 100 Each 1 5 Active Glucagon (Baqsimi Two Pack) 3 MG/DOSE POWD [place] 1 spray into the nose as needed 1 Each 5 Active Active Problems Problem Noted Date [...] Department Care Team Description 06/23/2025 1:02 PM ANGLE DOZER OPERATOR Hospital Encounter [facility] [address] [place] [address] Frank Horan MD 06/23/2025 1:00 PM ANGLE DOZER OPERATOR Hospital Encounter [facility] [address] [place] [address] Frank Horan MD ATTORNEY RECRUITER 05/30/2025 1:45 PM CDT - 05/30/2025 11:59 PM CDT Hospital Encounter [facility] [place] [address] Frank Horan MD Discharge Disposition: Home or Self Care 05/12/2025 1:45 PM CDT Hospital Encounter [address] [address] Danelle Kitchen MD Pediatric Cardiology Discharge Disposition: Home or Self Care 05/12/2025 1:45 PM CDT Hospital Encounter [facility] [address] [place] [address] Danelle Kitchen MD Discharge Disposition: Home or Self Care 05/11/[address] [address] Cassia Armenta Appointment 05/06/2025 Orders Only [facility] [address] [place] [address] Meg Gomez RN 05/02/2025 2:30 PM CDT - 05/02/2025 11:59 PM CDT Hospital Encounter [facility] [address] [place] [address] Head, Bella Bowen MD Discharge Disposition: Home or Self Care 04/04/2025 2:30 PM CDT - 04/04/2025 11:59 PM CDT Hospital Encounter [facility] [address] [place] [address] Joanna Mendiola MD Discharge Disposition: Home or [...] on file Legal Sex Female 4:23 AM ANGLE DOZER OPERATOR Gender Identity Not on file Sexual Orientation Not on file Last Filed Vital Signs Vital Sign Reading Time Taken Comments Blood Pressure 116/59 06/23/2025 1:39 PM ANGLE DOZER OPERATOR Pulse 81 06/23/2025 1:39 PM ANGLE DOZER OPERATOR Temperature 36.5 C (97.7 F) 03/11/2009 8:38 AM CDT Respiratory Rate - - Oxygen Saturation - - Inhaled Oxygen Concentration - - Weight 133.8 kg (295 lb) 06/23/2025 1:39 PM ANGLE DOZER OPERATOR Height 162.6 cm (5' 4) 06/23/2025 1:39 PM ANGLE DOZER OPERATOR Body Mass Index 50.64 06/23/2025 1:39 PM ANGLE DOZER OPERATOR Plan of Treatment Health Maintenance Due Date [...] PROFILE W NST Routine 06/23/2025 1:05 PM ANGLE DOZER OPERATOR resulting from assisted reproductive technology in third trimester (HCC) Encounter for ultrasound to assess growth (HCC) Gestational diabetes mellitus (GDM) in third trimester, gestational diabetes method of control unspecified (HCC) Obesity affecting in third trimester, unspecified obesity type (HCC) 36 weeks gestation of (HCC) Advanced maternal age, primigravida, antepartum (HCC) SONOGRAM - COMPLETE Routine 05/30/2025 2 :00 PM CDT AMA (advanced maternal age) multigravida [...] anatomy (HCC) SONOGRAM - COMPLETE Routine 05/02/2025 2 :57 PM CDT Advanced maternal age, 1st , second trimester (HCC) resulting from assisted reproductive technology in second trimester: IUI Encounter for follow-up ultrasound of anatomy (HCC) Encounter for ultrasound to assess growth (HCC) Obesity affecting in second trimester, unspecified obesity type (HCC) SONOGRAM - COMPLETE Routine 04/04/2025 2 :47 PM CDT Advanced maternal age, 1st , second trimester (HCC) resulting from assisted reproductive technology in second trimester: IUI Encounter for follow-up ultrasound of anatomy (HCC) Encounter for ultrasound to assess growth (HCC) from Last 3 Months Results * Biophysical Profile w NST (06/23/2025 1:05 PM ANGLE DOZER OPERATOR) Linked Results Indication ======== Encounter for screening [...] 7 lb 4 oz EFW by Hadlock ([id number]) appropriate Growth Overview Exam date [place] BPD [...] not be adequately visualized: Heart / Thorax 0-ptbdlw-fhgnzrq view. Bicaval view. Ductal arch view. Great [...] tone 2: Amniotic fluid volume NST: reactive 05/27 Biophysical profile score Non Stress Test NST interpretation: reactive. Baseline FHR 120 bpm. Baseline variability: moderate. Accelerations: present. Decelerations: absent. Uterine activity: absent. Acoustic stimulation: no Impression ========= Single, live, intrauterine at 36w 3d The size is appropriate. The amniotic fluid volume is normal. No major malformations were seen within the limits of ultrasound. Biophysical profile 05/27 Comment ======== ultrasound alone cannot detect all structural, genetic, or functional , placental, or maternal abnormalities Follow-up ======== Initiate 2x weekly BPP with 2x weekly NST Coding ====== Diagnoses O09.513: Supervision of elderly primigravida O99.213, E66.813: Obesity complicating , Class 3 - BMI of 40.0 or greater O09.813: Supervision of resulting from assisted reproductive technology Z36.3: Encounter for screening for malformations [employer] PACS Anatomical Region Laterality Modality Other 06/23/2025 1:05 PM ANGLE DOZER OPERATOR us Foster Dudley MD [facility] ORDERABLES Edited Result - Final * Sonogram - Complete (05/30/2025 2:00 PM [...] 5 lb 4 oz EFW by Hadlock ([id number]) appropriate Growth Overview Exam date [place] BPD [...] not be adequately visualized: Heart / Thorax 8-tpckox-psysodu view. Bicaval view. Ductal arch view. Great [...] at 36 weeks due to obesity per [facility] protocol. Repeat growth in 4 weeks. Post- echo to evaluate aortic arch per recommendations of pediatric cardiology (see 05/12 echo report). Coding ====== Diagnoses O09.513: Supervision of elderly primigravida O99.213, E66.813: Obesity complicating , Class 3 - BMI of 40.0 or greater O09.813: Supervision of resulting from assisted reproductive technology Z36.3: Encounter for screening for malformations Procedures 61385: US Preg Uterus Follow Up [employer] PACS Anatomical Region Laterality Modality Other 05/30/2025 2:00 PM CDT Foster Dudley MD [facility] ORDERABLES Edited Result - Final * [...] 05/12/2025 Exam Date/Time: 05/12/2025 2:03 PM Site: [facility] Current Location: CARE EStaffOrdering Provider: eBlla Bowen Head Interpreting Physician: Danelle Kitchen MD Phlebotomy Manager: Rosalie Alberts [facility] Study Info Procedure: ECHO COMPLETE CG Indications: O09.512 - Advanced maternal age, 1st , second trimester (HCC) Z36.2 - Encounter for follow-up ultrasound of anatomy ([facility]) Maternal Gestational Status GA by EDC: 30 [...] Danelle Kitchen MD on 05/12/2025 03:29 PM Procedure Note Danelle Kitchen MD - 05/12/2025 Name: Lindsey Adames Patient Exam Info Gender: Female Patient Status: O/P : 1990 Admit Date: 05/12/2025 Exam Date/Time: 05/12/2025 2:03 PM Site: [facility] Current Location: CARE EStaffOrdering Provider: Bella Bowen Head Interpreting Physician: Danelle Kitchen MD Phlebotomy Manager: Rosalie Alberts [facility] Study Info Procedure: ECHO COMPLETE CG Indications: O09.512 - Advanced maternal age, 1st , second trimester(HCC) Z36.2 - Encounter for follow-up ultrasound of anatomy ([facility]) Maternal Gestational Status GA by EDC: 30 [...] Kitchen MD on 05/12/2025 03:29 PM Bella Orellana MD ECHO CUPID Final Result from Last 3 Months Insurance [employer]
--- OUTSIDE RECORDS SUMMARY | 2025-06-23 21:09 | XMS_ITS | Encounter Summary ---
Author Organization [employer] Address [address] [place] [address] Care Team Providers Care Hardwood Floor Installer Name Role Phone Ryan Pritchard MD Primary Care Provider [phone] Encounter Details Date Type Department Care Team (Late st Contact Info) Description 05/12/2001 Outpatient Historical [facility] [address] [place] [address] Hayley Barth Social History Tobacco Use Types Packs/Day Years Used Date Smoking Tobacco: Never Assessed Comments Unknown Sex and Gender Information Value Date Recorded Sex Assigned at Not on file Legal Sex Female 4:47 AM DEPUTY [employer]ER[employer] Gender Identity Not on file Sexual Orientation Not on file documented as of this encounter Plan of Treatment Not on file documented as of this encounter Visit Diagnoses Not on filedocumented in this encounter Care Teams Hardwood Floor Installer Relationship Specialty Start Date End Date Ryan Pritchard MD [address] [place] [address]. [address] [place] [address] PCP - General Family Practice 02/02/10 documented as of this encounter
--- OUTSIDE RECORDS SUMMARY | 2025-06-23 21:09 | XMS_ITS | Clinical Summary ---
Author Organization [facility] Address [facility] [place] [address] Care Team Providers Care Overhauler Helper Name Role Phone Carlos A Winn MD Primary Care Provider [phone] Allergies Active Allergy Reactions Criticality Noted Date [...] CDT Height 162.6 cm (5' 4) 01/13/2024 8:1 9 AM CDT Body Mass Index 49.81 01/13/2024 [...] 2018 Annual Physical 02/08/2023 02/08/2022 PHQ-2 (Physician [place]) 08/18/2024 01/13/2024 COVID-19 Vaccine ( season) 2025 [...] complete this topic Insurance [employer] Care Teams Overhauler Helper Relationship Specialty [place] [address] [place] [address] PCP - General INTERNAL MEDICINE 11/11/24
--- OUTSIDE RECORDS SUMMARY | 2025-06-23 21:09 | XMS_ITS | Encounter Summary ---
Author Organization [facility] Address [address] [place] [address] Care Team Providers Care Senior Nurse Manager Name Role Phone Ryan Pritchard MD Primary Care Provider [phone] Encounter Details Date Type Department Care Team (Late st Contact Info) Description 03/15/2002 Outpatient Historical [facility] Primary [facility] - [place] [address] [place] [address] Magen Ag, DO * Social History Tobacco Use Types Packs/Day Years Used Date Smoking Tobacco: Never Assessed Comments Unknown Sex and Gender Information Value Date Recorded Sex Assigned at Not on file Legal Sex Female 4:47 AM SMOKING PIPE DRILLER AND THREADER Gender Identity Not on file Sexual Orientation Not on file documented as of this encounter Plan of Treatment Not on file documented as of this encounter Visit Diagnoses Not on filedocumented in this encounter Care Teams Senior Nurse Manager Relationship Specialty Start Date End Date Ryan Pritchard MD [address] [place] [address] PCP - General Family Practice 02/02/10 documented as of this encounter
--- OUTSIDE RECORDS SUMMARY | 2025-06-23 21:09 | XMS_ITS | Encounter Summary ---
Author Organization [facility] Address [address] [place] [address] Care Team Providers Care Resident Care Aid Name Role Phone Ryan Pritchard MD Primary Care Provider [phone] Encounter Details Date Type Department Care Team (Late st Contact Info) Description 03/23/2002 Outpatient Historical [facility] Primary Care - [place] [address] [place] [address] Magen Ag, DO * Social History Tobacco Use Types Packs/Day Years Used Date Smoking Tobacco: Never Assessed Comments Unknown Sex and Gender Information Value Date Recorded Sex Assigned at Not on file Legal Sex Female 4:47 AM RETURNED GOODS 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
--- OUTSIDE RECORDS SUMMARY | 2025-06-23 21:09 | XMS_ITS | Encounter Summary ---
Author Organization [facility] Address [address] [place] [address] Care Team Providers Care Cotton Puller Name Role Phone Ryan Pritchard MD Primary Care Provider [phone] Encounter Details Date Type Department Care Team (Late st Contact Info) Description 10/29/2000 Outpatient Historical [facility] Hayley Barth Social History Tobacco Use Types Packs/Day Years Used Date Smoking Tobacco: Never Assessed Comments Unknown Sex and Gender Information Value Date Recorded Sex Assigned at Not on file Legal Sex Female 4:47 AM COMPUTER TERMINAL OPERATOR Gender Identity Not on file Sexual Orientation Not on file documented as of this encounter Plan of Treatment Not on file documented as of this encounter Visit Diagnoses Not on filedocumented in this encounter Care Teams Cotton Puller Relationship Specialty Start Date End Date Ryan Pritchard MD [address] [place] [address] PCP - General Family Practice 02/02/10 documented as of this encounter
--- OUTSIDE RECORDS SUMMARY | 2025-06-23 21:09 | XMS_ITS | Encounter Summary ---
Author Organization [facility] Address [address] [place] [address] Care Team Providers Care Electrical High Tension Tester Name Role Phone Ryan Pritchard MD Primary Care Provider [phone] Encounter Details Date Type Department Care Team (Late st Contact Info) Description 08/10/2002 Outpatient Historical [facility] Primary Care - [place] [address] [place] [address] Magen Ag, DO * Social History Tobacco Use Types Packs/Day Years Used Date Smoking Tobacco: Never Assessed Comments Unknown Sex and Gender Information Value Date Recorded Sex Assigned at Not on file Legal Sex Female 4:47 AM SALES DEMONSTRATOR Gender Identity Not on file Sexual Orientation Not on file documented as of this encounter Plan of Treatment Not on file documented as of this encounter Visit Diagnoses Not on filedocumented in this encounter Care Teams Electrical High Tension Tester Relationship Specialty Start Date End Date Ryan Pritchard MD [address] [place] [address] PCP - General Family Practice 02/02/10 documented as of this encounter
--- OUTSIDE RECORDS SUMMARY | 2025-06-23 21:09 | XMS_ITS | Encounter Summary ---
Author Organization [facility] Address [address] [place] [address] Care Team Providers Care Instructor Flying Name Role Phone Ryan Pritchard MD Primary Care Provider [phone] Encounter Details Date Type Department Care Team (Late st Contact Info) Description 01/14/2001 Outpatient Historical [facility] [address] [place] [address] Hayley Barth Social History Tobacco Use Types Packs/Day Years Used Date Smoking Tobacco: Never Assessed Comments Unknown Sex and Gender Information Value Date Recorded Sex Assigned at Not on file Legal Sex Female 4:47 AM CLERICAL OFFICE WORKER Gender Identity Not on file Sexual Orientation Not on file documented as of this encounter Plan of Treatment Not on file documented as of this encounter Visit Diagnoses Not on filedocumented in this encounter Care Teams Instructor Flying Relationship Specialty Start Date End Date Ryan Pritchard MD [address] [place] [address]. [address] [place] [address] PCP - General Family Practice 02/02/10 documented as of this encounter
--- OUTSIDE RECORDS SUMMARY | 2025-06-23 21:09 | XMS_ITS | Encounter Summary ---
Author Organization [facility] Address [address] [place] [address] Care Team Providers Care Tube Fitter Name Role Phone Ryan Pritchard MD Primary Care Provider [phone] Encounter Details Date Type Department Care Team (Late st Contact Info) Description 09/13/[address] [facility] Primary Care - [place] [address] [place] [address] Magen Ag, DO * Social History Tobacco Use Types Packs/Day Years Used Date Smoking Tobacco: Never Assessed Comments Unknown Sex and Gender Information Value Date Recorded Sex Assigned at Not on file Legal Sex Female 4:47 AM SCREEDMAN/LABORER Gender Identity Not on file Sexual Orientation Not on file documented as of this encounter Plan of Treatment Not on file documented as of this encounter Visit Diagnoses Not on filedocumented in this encounter Care Teams Tube Fitter Relationship Specialty Start Date End Date Ryan Pritchard MD [address] [place] [address] PCP - General Family Practice 02/02/10 documented as of this encounter
--- OUTSIDE RECORDS SUMMARY | 2025-06-23 21:09 | XMS_ITS | Encounter Summary ---
Author Organization [facility] Address [address] [place] [address] Care Team Providers Care Broodmare Foreman Name Role Phone Ryan Pritchard MD Primary Care Provider [phone] Encounter Details Date Type Department Care Team (Late st Contact Info) Description 08/30/2002 Outpatient Historical [facility] Primary Care - [place] [address] [place] [address] Magen Ag, DO * Social History Tobacco Use Types Packs/Day Years Used Date Smoking Tobacco: Never Assessed Comments Unknown Sex and Gender Information Value Date Recorded Sex Assigned at Not on file Legal Sex Female 4:47 AM CURRICULUM DEVELOPMENT SPECIALIST Gender Identity Not on file Sexual Orientation Not on file documented as of this encounter Plan of Treatment Not on file documented as of this encounter Visit Diagnoses Not on filedocumented in this encounter Care Teams Broodmare Foreman Relationship Specialty Start Date End Date Ryan Pritchard MD [address] [place] [address] PCP - General Family Practice 02/02/10 documented as of this encounter
--- OUTSIDE RECORDS SUMMARY | 2025-06-23 21:10 | XMS_ITS | Encounter Summary ---
Author Organization [facility] Address [address] [place] [address] Care Team Providers Care Gear Repair Supervisor Name Role Phone Ryan Pritchard MD Primary Care Provider [phone] Encounter Details Date Type Department Care Team (Late st Contact Info) Description 08/06/2004 Outpatient Historical [facility] Primary Care - [place] [address] [place] [address] Magen Ag, DO * Social History Tobacco Use Types Packs/Day Years Used Date Smoking Tobacco: Never Assessed Comments Unknown Sex and Gender Information Value Date Recorded Sex Assigned at Not on file Legal Sex Female 4:47 AM FOREPART LASTER Gender Identity Not on file Sexual Orientation Not on file documented as of this encounter Plan of Treatment Not on file documented as of this encounter Visit Diagnoses Not on filedocumented in this encounter Care Teams Gear Repair Supervisor Relationship Specialty Start Date End Date Ryan Pritchard MD [address] [place] [address] PCP - General Family Practice 02/02/10 documented as of this encounter
--- OUTSIDE RECORDS SUMMARY | 2025-06-23 21:10 | XMS_ITS | Encounter Summary ---
Author Organization [facility] Address [address] [place] [address] Care Team Providers Care Special Warfare Operator Name Role Phone Ryan Pritchard MD Primary Care Provider [phone] Encounter Details Date Type Department Care Team (Late st Contact Info) Description 10/05/2002 Outpatient Historical [facility] Primary Care - [place] [address] [place] [address] Magen Ag, DO * Social History Tobacco Use Types Packs/Day Years Used Date Smoking Tobacco: Never Assessed Comments Unknown Sex and Gender Information Value Date Recorded Sex Assigned at Not on file Legal Sex Female 4:47 AM MOLASSES COLORING OPERATOR Gender Identity Not on file Sexual Orientation Not on file documented as of this encounter Plan of Treatment Not on file documented as of this encounter Visit Diagnoses Not on filedocumented in this encounter Care Teams Special Warfare Operator Relationship Specialty Start Date End Date Ryan Pritchard MD [address] [place] [address] PCP - General Family Practice 02/02/10 documented as of this encounter
--- OUTSIDE RECORDS SUMMARY | 2025-06-23 21:10 | XMS_ITS | Encounter Summary ---
Author Organization [employer] Address [address] [place] [address] Care Team Providers Care Adjunct Communications Faculty Member Name Role Phone Ryan Pritchard MD Primary Care Provider [phone] Encounter Details Date Type Department Care Team (Latest Contact Info) Description 05/19/2005 Outpatient Historical [facility] Jackson Garcia MD NO ADDRESS ON FILE CONTUSION OF HAND(S) (Primary Dx) Social History Tobacco Use Types Packs/Day Years Used Date Smoking Tobacco: Never Assessed Comments Unknown Sex and Gender Information Value Date Recorded Sex Assigned at Not on file Legal Sex Female 4:47 AM 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
--- OUTSIDE RECORDS SUMMARY | 2025-06-23 21:10 | XMS_ITS | Encounter Summary ---
Author Organization [facility] Address [address] [place] [address] Care Team Providers Care Director Of Employer Services Name Role Phone Ryan Pritchard MD Primary Care Provider [phone] Encounter Details Date Type Department Care Team (Late st Contact Info) Description 10/06/2003 Outpatient Historical [facility] Primary Care - [place] [address] [place] [address] Magen Ag, DO * Social History Tobacco Use Types Packs/Day Years Used Date Smoking Tobacco: Never Assessed Comments Unknown Sex and Gender Information Value Date Recorded Sex Assigned at Not on file Legal Sex Female 4:47 AM MOBILE PRODUCT MANAGER Gender Identity Not on file Sexual Orientation Not on file documented as of this encounter Plan of Treatment Not on file documented as of this encounter Visit Diagnoses Not on filedocumented in this encounter Care Teams Director Of Employer Services Relationship Specialty Start Date End Date Ryan Pritchard MD [address] [place] [address] PCP - General Family Practice 02/02/10 documented as of this encounter
--- OUTSIDE RECORDS SUMMARY | 2025-06-23 21:10 | XMS_ITS | Encounter Summary ---
Author Organization [facility] Address [address] [place] [address] Care Team Providers Care Tourist Information Assistant Name Role Phone Ryan Pritchard MD Primary Care Provider [phone] Encounter Details Date Type Department Care Team (Late st Contact Info) Description 12/05/2004 Outpatient Historical [facility] Primary Care - [place] [address] [place] [address] Magen Ag, DO * Social History Tobacco Use Types Packs/Day Years Used Date Smoking Tobacco: Never Assessed Comments Unknown Sex and Gender Information Value Date Recorded Sex Assigned at Not on file Legal Sex Female 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
--- OUTSIDE RECORDS SUMMARY | 2025-06-23 21:10 | XMS_ITS | Encounter Summary ---
Author Organization [facility] Address [address] [place] [address] Care Team Providers Care Glue Mill Operator Name Role Phone Ryan Pritchard MD Primary Care Provider [phone] Encounter Details Date Type Department Care Team (Late st Contact Info) Description 09/28/2003 Outpatient Historical [facility] Primary Care - [place] [address] [place] [phone] No Santos MD NO ADDRESS ON FILE Social History Tobacco Use Types Packs/Day Years Used Date Smoking Tobacco: Never Assessed Comments Unknown Sex and Gender Information Value Date Recorded Sex Assigned at Not on file Legal Sex Female 4:47 AM CAKE TESTER Gender Identity Not on file Sexual Orientation Not on file documented as of this encounter Plan of Treatment Not on file documented as of this encounter Visit Diagnoses Not on filedocumented in this encounter Care Teams Glue Mill Operator Relationship Specialty Start Date End Date Ryan Pritchard MD [address] [place] [address] PCP - General Family Practice 02/02/10 documented as of this encounter
--- OUTSIDE RECORDS SUMMARY | 2025-06-23 21:10 | XMS_ITS | Encounter Summary ---
Author Organization [facility] Address [address] [place] [address] Care Team Providers Care Soil Field Technician Name Role Phone Ryan Pritchard MD Primary Care Provider [phone] Encounter Details Date Type Department Care Team (Late st Contact Info) Description 08/01/2003 Outpatient Historical [facility] Primary Care - [place] [address] [place] [address] No Santos MD NO ADDRESS ON FILE Social History Tobacco Use Types Packs/Day Years Used Date Smoking Tobacco: Never Assessed Comments Unknown Sex and Gender Information Value Date Recorded Sex Assigned at Not on file Legal Sex Female 4:47 AM SIEBEL SOLUTION ARCHITECT Gender Identity Not on file Sexual Orientation Not on file documented as of this encounter Plan of Treatment Not on file documented as of this encounter Visit Diagnoses Not on filedocumented in this encounter Care Teams Soil Field Technician Relationship Specialty Start Date End Date Ryan Pritchard MD [address] [place] [address] PCP - General Family Practice 02/02/10 documented as of this encounter
--- OUTSIDE RECORDS SUMMARY | 2025-06-23 21:10 | XMS_ITS | Encounter Summary ---
Author Organization [facility] Address [address] [place] [address] Care Team Providers Care Sound Engineering Technician Name Role Phone Ryan Pritchard MD Primary Care Provider [phone] Encounter Details Date Type Department Care Team (Late st Contact Info) Description 12/09/2002 Outpatient Historical [facility] Primary Care - [place] [address] [place] [address] Magen Ag, DO * Social History Tobacco Use Types Packs/Day Years Used Date Smoking Tobacco: Never Assessed Comments Unknown Sex and Gender Information Value Date Recorded Sex Assigned at Not on file Legal Sex Female 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
--- OUTSIDE RECORDS SUMMARY | 2025-06-23 21:10 | XMS_ITS | Encounter Summary ---
Author Organization [facility] Address [address] [place] [address] Care Team Providers Care Outsole Caser Name Role Phone Ryan Pritchard MD Primary Care Provider [phone] Encounter Details Date Type Department Care Team (Late st Contact Info) Description 12/14/2002 Outpatient Historical [facility] Primary Care - [place] 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 [place] [address] PCP - General Family Practice 02/02/10 documented as of this encounter
--- OUTSIDE RECORDS SUMMARY | 2025-06-23 21:10 | XMS_ITS | Encounter Summary ---
Author Organization [facility] Address [address] [place] [address] Care Team Providers Care Pipe Insulator Helper Name Role Phone Ryan Pritchard MD Primary Care Provider [phone] Encounter Details Date Type Department Care Team (Latest Contact Info) Description 07/18/2005 Outpatient Historical [facility] [place] [address] [place] [phone] CONTUSION LEG NOS (Primary Dx) Social History Tobacco Use Types Packs/Day Years Used Date Smoking Tobacco: Never Assessed Comments Unknown Sex and Gender Information Value Date Recorded Sex Assigned at Not on file Legal 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
--- OUTSIDE RECORDS SUMMARY | 2025-06-23 21:10 | XMS_ITS | Encounter Summary ---
Author Organization [facility] Address [address] [place] [address] Care Team Providers Care Welder Plasma Arc Name Role Phone Ryan Pritchard MD Primary Care Provider [phone] Encounter Details Date Type Department Care Team (Late st Contact Info) Description 05/20/2003 Outpatient Historical [facility] Primary Care - [place] [address] [place] [phone] No Santos MD NO ADDRESS ON FILE Social History Tobacco Use Types Packs/Day Years Used Date Smoking Tobacco: Never Assessed Comments Unknown Sex and Gender Information Value Date Recorded Sex Assigned at Not on file Legal Sex Female 4:47 AM INSTITUTIONAL COOK Gender Identity Not on file Sexual Orientation Not on file documented as of this encounter Plan of Treatment Not on file documented as of this encounter Visit Diagnoses Not on filedocumented in this encounter Care Teams Welder Plasma Arc Relationship Specialty Start Date End Date Ryan Pritchard MD [address] [place] [address] PCP - General Family Practice 02/02/10 documented as of this encounter
--- OUTSIDE RECORDS SUMMARY | 2025-06-23 21:10 | XMS_ITS | Encounter Summary ---
Author Organization [facility] Address [address] [place] [address] Care Team Providers Care Concrete Tile Machine Operator Name Role Phone Ryan Pritchard MD Primary Care Provider [phone] Encounter Details Date Type Department Care Team (Late st Contact Info) Description 07/04/2003 Outpatient Historical [facility] Primary [place] - [place] [address] [address] No Santos MD NO ADDRESS ON FILE Social History Tobacco Use Types Packs/Day Years Used Date Smoking Tobacco: Never Assessed Comments Unknown Sex and Gender Information Value Date Recorded Sex Assigned at Not on file Legal Sex Female 4: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
--- OUTSIDE RECORDS SUMMARY | 2025-06-23 21:10 | XMS_ITS | Clinical Summary ---
Author Organization [facility] Address [address] [place] [address] Phone Care Team Providers Care Research Program Manager Name Role Phone Ryan Pritchard MD Primary Care Provider [phone] Allergies Active Allergy Reactions Criticality Noted Date [...] for Allergies. 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 Comment:Information not prov ided LAST MENSTRUAL PERIOD [facility] Comment:INFORMATION NOT PROV IDED PREV PAP: [facility] Comment:INFORMATION NOT PROV IDED PREV BX: [facility] [employer] [facility] Comment:INFORMATION NOT PROV IDED SOURCE [facility] Comment:Endocervix ADEQUACY: [facility] [employer] [facility] Comment: Satisfactory for evaluation. Endocervical/transformation zone component present. Age and/or menstrual status not provided INTERPRETATION [facility] Comment:Negative for intraep ithelial lesion or malignancy. CYTOLOGY INFECTION Q [facility] Comment: Shift in vaginal hawk suggestive of bacterial vaginosis. COMMENT [facility] [employer] [facility] Comment: This Pap test has been evaluated with computer assisted technology. Based on the cytology result, reflex High Risk HPV DNA testing was not performed. YOUTH DEVELOPMENT PROFESSIONAL: [employer] [facility] Comment: MDG, CT(ASCP) Test Performed at: [facility] [address] [place] [address] KALI VENTURA DO 04/10/2012 1:40 PM CDT Ryan Pritchard MD PATHOLOGY/CYTOLOGY ORDERABLE S Final Result INTERFACE SYSTEM Refer to clinic/hospital department [facility] [address] [place] [address] from Last 3 Months or Most Recently Relevant to Health Maintenance Insurance [place] [id number] [facility] [id number] Care Teams Research Program Manager Relationship Specialty Start Date End Date Ryan Pritchard MD [address] [address] [address] PCP - General Family Practice 02/02/10
--- OUTSIDE RECORDS SUMMARY | 2025-06-23 21:10 | XMS_ITS | Encounter Summary ---
Author Organization [facility] Address [address] [place] [address] Care Team Providers Care Search Strategist Name Role Phone Ryan Pritchard MD Primary Care Provider [phone] Encounter Details Date Type Department Care Team (Late st Contact Info) Description 10/26/2003 Outpatient Historical [facility] Primary Care - [place] [address] [place] [address] No Santos MD NO ADDRESS ON FILE Social History Tobacco Use Types Packs/Day Years Used Date Smoking Tobacco: Never Assessed Comments Unknown Sex and Gender Information Value Date Recorded Sex Assigned at Not on file Legal Sex Female 4:47 AM YARN SALVAGER Gender Identity Not on file Sexual Orientation Not on file documented as of this encounter Plan of Treatment Not on file documented as of this encounter Visit Diagnoses Not on filedocumented in this encounter Care Teams Search Strategist Relationship Specialty Start Date End Date Ryan Pritchard MD [address] [place] [address] PCP - General Family Practice 02/02/10 documented as of this encounter
--- OUTSIDE RECORDS SUMMARY | 2025-06-23 21:10 | XMS_ITS | Encounter Summary ---
Author Organization Address 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
--- OUTSIDE RECORDS SUMMARY | 2025-06-23 21:10 | XMS_ITS | Encounter Summary ---
Author Organization [facility] Address [address] [place] [address] Care Team Providers Care Lasting Room Supervisor Name Role Phone Ryan Pritchard MD Primary Care Provider [phone] Encounter Details Date Type Department Care Team (Late st Contact Info) Description 12/21/2002 Outpatient Historical [facility] Primary Care - [place] [address] [place] [address] Magen Ag, DO * Social History Tobacco Use Types Packs/Day Years Used Date Smoking Tobacco: Never Assessed Comments Unknown Sex and Gender Information Value Date Recorded Sex Assigned at Not on file Legal Sex Female 4:47 AM CHIEF DISPATCHER SERVICE Gender Identity Not on file Sexual Orientation Not on file documented as of this encounter Plan of Treatment Not on file documented as of this encounter Visit Diagnoses Not on filedocumented in this encounter Care Teams Lasting Room Supervisor Relationship Specialty Start Date End Date Ryan Pritchard MD [address] [place] [address] PCP - General Family Practice 02/02/10 documented as of this encounter
--- OUTSIDE RECORDS SUMMARY | 2025-06-23 21:10 | XMS_ITS | Encounter Summary ---
Author Organization [facility] Address [address] [place] [address] Care Team Providers Care Help Desk Rep Name Role Phone Ryan Pritchard MD Primary Care Provider [phone] Encounter Details Date Type Department Care Team (Late st Contact Info) Description 09/15/2003 Outpatient Historical [facility] Primary Care - [place] [address] [place] [address] No Santos MD NO ADDRESS ON FILE Social History Tobacco Use Types Packs/Day Years Used Date Smoking Tobacco: Never Assessed Comments Unknown Sex and Gender Information Value Date Recorded Sex Assigned at Not on file Legal Sex Female 4:47 AM HOOK TENDER Gender Identity Not on file Sexual Orientation Not on file documented as of this encounter Plan of Treatment Not on file documented as of this encounter Visit Diagnoses Not on filedocumented in this encounter Care Teams Help Desk Rep Relationship Specialty Start Date End Date Ryan Pritchard MD [address] [place] [address] PCP - General Family Practice 02/02/10 documented as of this encounter
--- OUTSIDE RECORDS SUMMARY | 2025-06-23 21:10 | XMS_ITS | Encounter Summary ---
Author Organization [facility] Address [address] [place] [address] Care Team Providers Care Machine Hostler Name Role Phone Ryan Pritchard MD Primary Care Provider [phone] Encounter Details Date Type Department Care Team (Late st Contact Info) Description 11/10/2003 Outpatient Historical [facility] Primary Care - [place] [address] [address] Magen Ag, DO * Social History Tobacco Use Types Packs/Day Years Used Date Smoking Tobacco: Never Assessed Comments Unknown Sex and Gender Information Value Date Recorded Sex Assigned at Not on file Legal Sex Female 4:47 AM REPAIRER PUMP Gender Identity Not on file Sexual Orientation Not on file documented as of this encounter Plan of Treatment Not on file documented as of this encounter Visit Diagnoses Not on filedocumented in this encounter Care Teams Machine Hostler Relationship Specialty Start Date End Date Ryan Pritchard MD [address] [place] [address] PCP - General Family Practice 02/02/10 documented as of this encounter
--- OUTSIDE RECORDS SUMMARY | 2025-06-23 21:10 | XMS_ITS | Encounter Summary ---
Author Organization [facility] Address [address] [place] [address] Care Team Providers Care Devops Name Role Phone Ryan Pritcahrd MD Primary Care Provider [phone] Encounter Details Date Type Department Care Team (Late st Contact Info) Description 12/24/2002 Outpatient Historical [facility] Primary Care - [place] [address] [place] [address] Magen Ag, DO * Social History Tobacco Use Types Packs/Day Years Used Date Smoking Tobacco: Never Assessed Comments Unknown Sex and Gender Information Value Date Recorded Sex Assigned at Not on file Legal Sex Female 4:47 AM CLIENT EVALUATOR Gender Identity Not on file Sexual Orientation Not on file documented as of this encounter Plan of Treatment Not on file documented as of this encounter Visit Diagnoses Not on filedocumented in this encounter Care Teams Devops Relationship Specialty Start Date End Date Ryan Pritchard MD [address] [place] [address] PCP - General Family Practice 02/02/10 documented as of this encounter
--- OUTSIDE RECORDS SUMMARY | 2025-06-23 21:10 | XMS_ITS | Encounter Summary ---
Author Organization [facility] Address [address] [place] [address] Care Team Providers Care Quality Cloth Tester Name Role Phone Ryan Pritchard MD Primary Care Provider [phone] Encounter Details Date Type Department Care Team (Late st Contact Info) Description 12/19/2003 Outpatient Historical [facility] Primary Care - [place] [address] [place] [address] No Santos MD NO ADDRESS ON FILE Social History Tobacco Use Types Packs/Day Years Used Date Smoking Tobacco: Never Assessed Comments Unknown Sex and Gender Information Value Date Recorded Sex Assigned at Not on file Legal Sex Female 4:47 AM INSPECTOR EYEGLASS Gender Identity Not on file Sexual Orientation Not on file documented as of this encounter Plan of Treatment Not on file documented as of this encounter Visit Diagnoses Not on filedocumented in this encounter Care Teams Quality Cloth Tester Relationship Specialty Start Date End Date Ryan Pritchard MD [address] [place] [address] PCP - General Family Practice 02/02/10 documented as of this encounter
--- OUTSIDE RECORDS SUMMARY | 2025-06-23 21:10 | XMS_ITS | Encounter Summary ---
Author Organization [facility] Address [address] [place] [address] Care Team Providers Care Aluminum Molding Machine Operator Name Role Phone Ryan Pritchard MD Primary Care Provider [phone] Encounter Details Date Type Department Care Team (Late st Contact Info) Description 07/23/2004 Outpatient Historical [facility] Primary Care - [place] [address] [place] [address] Magen Ag, DO * Social History Tobacco Use Types Packs/Day Years Used Date Smoking Tobacco: Never Assessed Comments Unknown Sex and Gender Information Value Date Recorded Sex Assigned at Not on file Legal Sex Female 4:47 AM SPANISHER Gender Identity Not on file Sexual Orientation Not on file documented as of this encounter Plan of Treatment Not on file documented as of this encounter Visit Diagnoses Not on filedocumented in this encounter Care Teams Aluminum Molding Machine Operator Relationship Specialty Start Date End Date Ryan Pritchard MD [address] [place] [address] PCP - General Family Practice 02/02/10 documented as of this encounter
== END 2025-06-23 16:56 | disposition home or self-care (01) ==
LOC: ANHOBOP 17:06
PROVIDERS: Visit Provider Obstetrics & Gynecology
DX: O13.9 Gestational [pregnancy-induced] hypertension without significant proteinuria, unspecified trimester (principal); Z3A.00 Weeks of gestation of pregnancy not specified
CPT/HCPCS: 81050; 82575; 84156

== ENCOUNTER 2025-07-02 09:52 | Outpatient (RCR) | payer OTHER, SELFPAY ==
[2025-06-25 12:48] VITALS: BP 132/66; PULSE 84
[2025-07-02 11:20] VITALS: BP 137/70; PULSE 81
== END 2025-07-09 08:34 | disposition other institution (70) ==
LOC: ANHOBOP 09:52
PROVIDERS: Visit Provider Obstetrics & Gynecology
DX: O24.419 Gestational diabetes mellitus in pregnancy, unspecified control (principal); O16.3 Unspecified maternal hypertension, third trimester; Z3A.36 36 weeks gestation of pregnancy
CPT/HCPCS: 59025

== ENCOUNTER 2025-07-06 14:07 | Outpatient (CLI) | payer OTHER, SELFPAY ==
[2025-07-06 14:47] LABS: Hematocrit 35.6 % (37.0-47.0); Hemoglobin 11.2 g/dL (12.0-15.0); Mean Corpuscular HGB Conc 31.5 g/dl (32-36); Mean Corpuscular Hemoglobin 24.9 pg (26-34); Mean Corpuscular Volume 79.3 fl (80-100); Platelet Count Result 172 k/mm3 (150-375); Red Blood Count 4.49 M/mm3 (4.2-5.4); White Blood Count 8.2 K/mm3 (4.5-10.0)
[2025-07-06 14:56] LABS: Alanine Aminotransferase 16 U/L (6-35); Albumin Level 3.6 g/dL (3.5-5.1); Alkaline Phosphatase 128 U/L (38-126); Anion Gap 7 mmol/L (4-12); Aspartate Amino Transferase 33 U/L (14-36); Bilirubin,Total 0.6 mg/dL (0.2-1.3); Blood Urea Nitrogen 7 mg/dL (7-17); Calcium 9.0 mg/dL (8.4-10.2); Carbon Dioxide 23 mmol/L (22-30); Chloride 105 mmol/L (98-107); Estimated Glomerular Filt Rate > 60; Glucose 100 mg/dL (65-110); Potassium 3.6 mmol/L (3.4-5.0); Sodium 135 mmol/L (137-145); Total Protein 6.7 g/dL (6.3-8.2)
[2025-07-06 15:47] LABS: Total Protein Urine Random 89 mg/dL; Ur Ttl Prot Creatinine Ratio 0.42 mg/mg (0-0.20)
== END 2025-07-06 14:08 | disposition home or self-care (01) ==
LOC: ANHLAB 14:09
PROVIDERS: Visit Provider Nurse Practitioner Family
DX: O99.210 Obesity complicating pregnancy, unspecified trimester (principal); O12.10 Gestational proteinuria, unspecified trimester
CPT/HCPCS: 36415; 80053; 82570; 84156; 85027

== ENCOUNTER 2025-07-06 18:10 | Observation (INO) | payer OTHER, SELFPAY ==
--- NOTE | 2025-07-06 20:21 | OBADM ---
This patient, Lindsey Swan, admitted to the OB room Labor/Delivery/Recovery 104 for observation. Patient/family oriented to hospital policies and general routines including ID bracelet, bed and alarms, visiting hours, pain management, procedures, bathroom and other care routines, personal items, smoking policy, room service/diet, and visiting hours. Patient/Family are encouraged to report perceived risks to care and to ask questions if they do not understand what they are told or what they should do.
[2025-07-06 20:22] VITALS: BMI 50.7
[2025-07-06] MEDS: CYCLOBENZAPRINE HCL 10 MG TABLET PO (20:31)
--- NOTE | 2025-07-18 09:12 | PM.OBTRLD ---
OB - Triage/Final Diagnosis Visit Information Comments/Additional reasons for admission: I have assessed the risk for this patient, Lindsey Swan, and determined that she would benefit from observation care. Final Diagnosis (1) False labor: Code(s): O47.9 - False labor, unspecified Status: Acute
--- NOTE | 2025-07-18 09:13 | WPDHPUPDATE1 ---
History and Physical Update Update Date/Time: 07/18/25 09:13 History and Physical has been reviewed, including an updated exam of the patient. There are NO changes in the patient's condition. Risks, benefits, and alternatives have been discussed and questions answered. Patient agrees to proceed with procedure.
== END 2025-07-06 20:35 | disposition home or self-care (01) ==
PROVIDERS: Admitting Provider Obstetrics & Gynecology; Visit Provider Obstetrics & Gynecology
DX: O47.1 False labor at or after 37 completed weeks of gestation (principal); Z3A.38 38 weeks gestation of pregnancy
CPT/HCPCS: A9270; G0378; G0379

== ENCOUNTER 2025-07-07 10:22 | Inpatient (IN) | payer OTHER, SELFPAY ==
[2025-07-07] VITALS (39 sets, daily range): BP systolic 126–166; BP diastolic 69–90; PULSE 69–96; TEMP 36.9–37; O2SAT 92–100; BMI 51.0
[2025-07-07] MEDS: LACTATED RINGERS 1,000 ML 125 ML IV CONT (11:32)
--- NOTE | 2025-07-07 11:42 | LDADM ---
This patient, Lindsey Swan, was admitted to Labor/Delivery/Recovery 106 on 07/07/25 at 10:22. Plans for labor, pain management and were discussed with patient. Patient/family oriented to hospital policies and general routines including ID bracelet, bed and alarms, visiting hours, pain management, procedures, bathroom and other care routines, personal items, smoking policy, room service/diet and guest tray routines, security routines, and visiting hours. Patient/Family are encouraged to report perceived risks to care and to ask questions if they do not understand what they are told or what they should do. See OBIX for further documentation.
[2025-07-07 11:43] LABS: Hematocrit 34.1 % (37.0-47.0); Hemoglobin 11.1 g/dL (12.0-15.0); Immature Granulocyte Percent A 0.5 % (0-0.5); Lymphocytes Absolute Auto 0.60 K/mm3 (0.9-3.2); Mean Corpuscular HGB Conc 32.6 g/dl (32-36); Mean Corpuscular Hemoglobin 25.1 pg (26-34); Mean Corpuscular Volume 77.0 fl (80-100); Nucleated Red Blood Cells Absolute Auto 0.000 K/mm3 (0.0-0.012); Nucleated Red Blood Cells Perc 0.0 % (0.0-0.2); Platelet Count Result 171 k/mm3 (150-375); Red Blood Count 4.43 M/mm3 (4.2-5.4); White Blood Count 10.2 K/mm3 (4.5-10.0)
[2025-07-07 11:52] LABS: Alanine Aminotransferase 52 U/L (6-35); Albumin Level 3.6 g/dL (3.5-5.1); Alkaline Phosphatase 186 U/L (38-126); Anion Gap 9 mmol/L (4-12); Aspartate Amino Transferase 79 U/L (14-36); Bilirubin,Total 2.9 mg/dL (0.2-1.3); Blood Urea Nitrogen 5 mg/dL (7-17); Calcium 8.5 mg/dL (8.4-10.2); Carbon Dioxide 20 mmol/L (22-30); Chloride 105 mmol/L (98-107); Estimated Glomerular Filt Rate > 60; Glucose 124 mg/dL (65-110); Potassium 4.0 mmol/L (3.4-5.0); Sodium 134 mmol/L (137-145); Total Protein 6.7 g/dL (6.3-8.2); Uric Acid 5.8 mg/dL (2.5-7.5)
[2025-07-07 12:29] LABS: Syphilis IgG/IgM Antibody Non-Reactive (Nonreactive)
[2025-07-07 12:39] LABS: HIV 1/2 Ab P24 Ag Result Negative (Negative)
[2025-07-07] MEDS: LACTATED RINGERS 1,000 ML 999 ML IV CONT ×2 (15:29→23:45)
--- NOTE | 2025-07-07 16:14 | P.HP_ITS ---
H&P: HPI History of Present Illness Date/Time: 07/07/25 16:14 Chief Complaint: Contractions Narrative: She presented for labor check. Cervix unchanged. Blood pressure was elevated. This is the second elevated blood pressure. Has diagnosis of gestational hypertension. Blood pressures labile on L and D. Denies scotomata, severe headache or RUQ pain. PIH labs significant for ast 79, alt 52, labs were normal yesterday which she had labs drawn due to proteinuria. Normal blood pressures yesterday. p/c yesterday .42. PNC significant for gdm, diet controlled, AMA, LGA, IUI conception. GBS neg. Review of Systems Review of Systems: All systems reviewed & are unremarkable except as noted in HPI and below Constitutional: Constitutional: Reports no additional constitutional complaints and Denies headache(s) Eyes: Eyes: Denies spots in vision ENT: Reports system reviewed and no additional complaints, except as documented and Denies headache(s) Cardiovascular: Cardiovascular: Denies chest pain and Denies dyspnea Respiratory: Respiratory: Denies dyspnea Gastrointestinal: Gastrointestinal: Reports no additional gastrointestinal complaints Genitourinary: Genitourinary: Reports amenorrhea Musculoskeletal: Musculoskeletal: Reports no additional musculoskeletal complaints Integumentary/Breasts: Skin/Breast: Denies breast mass and Denies rash Neurologic: Denies headache(s) Psychiatric: Psychiatric: Reports no additional psychiatric complaints [facility] Past Medical History Medical History In vitro fertilization Surgical History Surgical History No significant past surgical history Family History Family History Father Cancer Mother Hypertension Social History Social History Smoking status: Never smoker Second hand tobacco smoke exposure: No Alcohol intake: current Substance use: never Lack of Transportation: No Lack of Food: Never True Current Housing: I Have Housing Concerned About Future Housing: No Difficulty Paying Gas/Electric Bills: No Difficulty Paying for Meds: No Currently Unemployed: No Education: High School Diploma/GED Difficulty w/ Childcare or Family Care: No Living arrangements: with family Occupation/Education: occupation Additional occupation/education comments: [employer] Gender identity (if verbalized by the patient): Female Spiritual care concerns: No Meds Home Medications and Allergies Home Medications ?Medication ?Instructions ?Recorded ?Confirmed ?Type docosahexaenoic acid 200 mg 200 mg PO DAILY 01/06/25 1 09/06/24 History capsule ( DHA) aspirin 81 mg tablet 81 mg PO DAILY 02/02/2506/19 History Dexcom G7 Sensor (blood-glucose #1 ea 06/15/25 5 Rx sensor) insulin glargine 100 unit/mL (3 10 unit subcut HS 04/1107/07/25 History mL) subcutaneous pen (Lantus Solostar U-100 Insulin) diphenhydramine HCl 25 mg capsule 25 mg PO HS 07/07/25 07/07/25 History (Aler-Cap) Allergies Allergy/AdvReac Type Severity Reaction Status Date / Time fluconazole (From Diflucan) Allergy Rash Verified 07/07/25 11:43 Vital Signs Vital Signs - 24 hr 07/07/25 11:00 07/07/25 11:15 07/07/25 11:31 Temperature Pulse Rate 79 85 86 Blood Pressure 153/72 H 153/78 H 137/69 Oxygen Delivery 07/07/25 11:35 07/07/25 11:46 07/07/25 13:13 Temperature Pulse Rate 79 82 Blood Pressure 126/71 149/72 H Oxygen Delivery Room Air 07/07/25 13:31 07/07/25 14:00 07/07/25 14:01 Temperature 98.4 F Pulse Rate 83 81 Blood Pressure 151/89 H 156/90 H Oxygen Delivery 07/07/25 14:30 07/07/25 15:00 07/07/25 15:30 Temperature Pulse Rate 74 86 88 Blood Pressure 155/82 H 144/89 H 155/79 H Oxygen Delivery 07/07/25 16:01 Temperature Pulse Rate 89 Blood Pressure 164/83 H Oxygen Delivery Exam Const: General: no acute distress Eyes: General: appearance normal, both eyes and all related structures Resp: Effort & Inspection: normal respiratory effort Cardio: Rate: regular rate GI: Other: Gravid no fundal tenderness no right upper quadrant pain : Other: cervix ft/50/-3 Skin: General skin exam: no rashes or lesions noted Neuro: Cognition (Neuro): normal cognition Extrem: General: normal to inspection Psych: Mental Status: mental status grossly normal H&P: Results Labs Labs: Short CBC 07/07/25 Range/Units 11:28 WBC 10.2 H (4.5-10.0) K/mm3 Hgb 11.1 L (12.0-15.0) g/dL Hct 34.1 L (37.0-47.0) % Plt Count 171 (150-375) k/mm3 BMP 07/07/25 07/07/25 07/07/25 11:28 11:28 11:28 Sodium Cancelled 134 L Potassium Cancelled 4.0 Chloride Cancelled Carbon Dioxide BUN Creatinine Glucose Calcium 07/07/25 07/07/25 07/07/25 11:28 11:28 11:28 Sodium Potassium Chloride 105 Carbon Dioxide Cancelled 20 L BUN Cancelled 5 L Creatinine Cancelled Glucose Calcium 07/07/25 07/07/25 07/07/25 11:28 11:28 11:28 Sodium Potassium Chloride Carbon Dioxide BUN Creatinine 0.54 L Glucose Cancelled 124 H Calcium Cancelled 8.5 Liver Function 07/07/25 07/07/25 07/07/25 Range/Units 11:28 11:28 11:28 Total Bilirubin Cancelled 2.9 H AST Cancelled 79 H ALT Cancelled Alkaline Phosphatase Albumin 07/07/25 07/07/25 07/07/25 Range/Units 11:28 11:28 11:28 Total Bilirubin AST ALT 52 H Alkaline Phosphatase Cancelled 186 H Albumin Cancelled 3.6 Assessment and Plan Assessment and plan (1) Pre-eclampsia: Code(s): O14.90 - Unspecified pre-eclampsia, unspecified trimester Status: Acute Assessment and Plan: Labile blood pressures. Continue to monitor. Meets severe criteria due to high AST. Plan for Magnesium in active labor. (2) Gestational diabetes: Code(s): O24.419 - Gestational diabetes mellitus in , unspecified control Status: Acute Assessment and Plan: Monitor blood sugars
[2025-07-07] MEDS: ONDANSETRON INJ 4 MG/2 ML VIAL IV PUSH (16:46)
--- NOTE | 2025-07-07 16:49 | PM.OBPNVD ---
OB - PN: Subj Subjective Date/time seen: 07/07/25 16:49 Interval history: fht 130, cat 1. At 1430 had a deceleration with subsequent late which resolved. OB - PN: Obj Data Labs 07/07/25 11:28 07/07/25 11:28 Labs: Laboratory Results - last 24 hr 07/07/25 07/07/25 07/07/25 11:22 11:28 11:28 WBC 10.2 H RBC 4.43 Hgb 11.1 L Hct 34.1 L MCV 77.0 L MCH 25.1 L MCHC 32.6 RDW 14.5 Plt Count 171 MPV 11.8 H Immature Gran % (Auto) 0.5 Neut % (Auto) 87.6 H Lymph % (Auto) 5.9 L Rabun % (Auto) 5.9 Eos % (Auto) 0.0 Baso % (Auto) 0.1 L Lymph # (Auto) 0.60 L Rabun # (Auto) 0.6 Eos # (Auto) 0.0 Baso # (Auto) 0.0 Abs Immat Gran (auto) 0.05 H Absolute Neuts (auto) 8.9 H Absolute Nucleated RBC 0.000 Nucleated RBC % 0.0 Sodium Cancelled 134 L Potassium Cancelled Chloride Carbon Dioxide Anion Gap BUN Creatinine Estim Creat Clear Calc Estimated GFR Glucose Uric Acid Calcium Total Bilirubin AST ALT Alkaline Phosphatase Total Protein Albumin Syphilis IgG/IgM Ab HIV 1&2 Ab/P24 Ag 4thGn Negative Blood Type Antibody Screen 07/07/25 07/07/25 07/07/25 11:28 11:28 11:28 WBC RBC Hgb Hct MCV MCH MCHC RDW Plt Count MPV Immature Gran % (Auto) Neut % (Auto) Lymph % (Auto) Rabun % (Auto) Eos % (Auto) Baso % (Auto) Lymph # (Auto) Rabun # (Auto) Eos # (Auto) Baso # (Auto) Abs Immat Gran (auto) Absolute Neuts (auto) Absolute Nucleated RBC Nucleated RBC % Sodium Potassium 4.0 Chloride Cancelled 105 Carbon Dioxide Cancelled 20 L Anion Gap Cancelled BUN Creatinine Estim Creat Clear Calc Estimated GFR Glucose Uric Acid Calcium Total Bilirubin AST ALT Alkaline Phosphatase Total Protein Albumin Syphilis IgG/IgM Ab HIV 1&2 Ab/P24 Ag 4thGn Blood Type Antibody Screen 07/07/25 07/07/25 07/07/25 11:28 11:28 11:28 WBC RBC Hgb Hct MCV MCH MCHC RDW Plt Count MPV Immature Gran % (Auto) Neut % (Auto) Lymph % (Auto) Rabun % (Auto) Eos % (Auto) Baso % (Auto) Lymph # (Auto) Rabun # (Auto) Eos # (Auto) Baso # (Auto) Abs Immat Gran (auto) Absolute Neuts (auto) Absolute Nucleated RBC Nucleated RBC % Sodium Potassium Chloride Carbon Dioxide Anion Gap 9 BUN Cancelled 5 L Creatinine Cancelled 0.54 L Estim Creat Clear Calc Cancelled Estimated GFR Glucose Uric Acid Calcium Total Bilirubin AST ALT Alkaline Phosphatase Total Protein Albumin Syphilis IgG/IgM Ab HIV 1&2 Ab/P24 Ag 4thGn Blood Type Antibody Screen 07/07/25 07/07/25 07/07/25 11:28 11:28 11:28 WBC RBC Hgb Hct MCV MCH MCHC RDW Plt Count MPV Immature Gran % (Auto) Neut % (Auto) Lymph % (Auto) Rabun % (Auto) Eos % (Auto) Baso % (Auto) Lymph # (Auto) Rabun # (Auto) Eos # (Auto) Baso # (Auto) Abs Immat Gran (auto) Absolute Neuts (auto) Absolute Nucleated RBC Nucleated RBC % Sodium Potassium Chloride Carbon Dioxide Anion Gap BUN Creatinine Estim Creat Clear Calc Not Reportable Estimated GFR Cancelled > 60 Glucose Cancelled 124 H Uric Acid Cancelled Calcium Total Bilirubin AST ALT Alkaline Phosphatase Total Protein Albumin Syphilis IgG/IgM Ab HIV 1&2 Ab/P24 Ag 4thGn Blood Type Antibody Screen 07/07/25 07/07/25 07/07/25 11:28 11:28 11:28 WBC RBC Hgb Hct MCV MCH MCHC RDW Plt Count MPV Immature Gran % (Auto) Neut % (Auto) Lymph % (Auto) Rabun % (Auto) Eos % (Auto) Baso % (Auto) Lymph # (Auto) Rabun # (Auto) Eos # (Auto) Baso # (Auto) Abs Immat Gran (auto) Absolute Neuts (auto) Absolute Nucleated RBC Nucleated RBC % Sodium Potassium Chloride Carbon Dioxide Anion Gap BUN Creatinine Estim Creat Clear Calc Estimated GFR Glucose Uric Acid 5.8 Calcium Cancelled 8.5 Total Bilirubin Cancelled 2.9 H AST Cancelled ALT Alkaline Phosphatase Total Protein Albumin Syphilis IgG/IgM Ab HIV 1&2 Ab/P24 Ag 4thGn Blood Type Antibody Screen 07/07/25 07/07/25 07/07/25 11:28 11:28 11:28 WBC RBC Hgb Hct MCV MCH MCHC RDW Plt Count MPV Immature Gran % (Auto) Neut % (Auto) Lymph % (Auto) Rabun % (Auto) Eos % (Auto) Baso % (Auto) Lymph # (Auto) Rabun # (Auto) Eos # (Auto) Baso # (Auto) Abs Immat Gran (auto) Absolute Neuts (auto) Absolute Nucleated RBC Nucleated RBC % Sodium Potassium Chloride Carbon Dioxide Anion Gap BUN Creatinine Estim Creat Clear Calc Estimated GFR Glucose Uric Acid Calcium Total Bilirubin AST 79 H ALT Cancelled 52 H Alkaline Phosphatase Cancelled 186 H Total Protein Cancelled Albumin Syphilis IgG/IgM Ab HIV 1&2 Ab/P24 Ag 4thGn Blood Type Antibody Screen 07/07/25 07/07/25 11:28 11:28 WBC RBC Hgb Hct MCV MCH MCHC RDW Plt Count MPV Immature Gran % (Auto) Neut % (Auto) Lymph % (Auto) Rabun % (Auto) Eos % (Auto) Baso % (Auto) Lymph # (Auto) Rabun # (Auto) Eos # (Auto) Baso # (Auto) Abs Immat Gran (auto) Absolute Neuts (auto) Absolute Nucleated RBC Nucleated RBC % Sodium Potassium Chloride Carbon Dioxide Anion Gap BUN Creatinine Estim Creat Clear Calc Estimated GFR Glucose Uric Acid Calcium Total Bilirubin AST ALT Alkaline Phosphatase Total Protein 6.7 Albumin Cancelled 3.6 Syphilis IgG/IgM Ab Non-reactive HIV 1&2 Ab/P24 Ag 4thGn Cancelled Blood Type A Positive Antibody Screen Negative OB - PN A/P Time Spent With Patient Time: Total time spent is greater than 50% in coordination of care (as documented) at patient's floor/unit and/or counseling patient:
[2025-07-07] MEDS: fentaNYL CITRATE INJ (*CRX) 100 MCG/2 ML VIAL 50 MCG IV PUSH (16:50)
--- NOTE | 2025-07-07 17:33 | WPDANESEPP ---
Anes - Eval Pre Procedure Procedure: Labor epidural Date/Time: 07/07/25 17:33 Surgeon: Uzma Preop Diagnosis: Abdominal pain with contractions Pre Op Diagnosis: Contractions Patient Data Age: 34 Gender: F Height: 1.63 m Weight: 135 kg Last Vital Signs Temp 98.4 F 07/07/25 14:00 Pulse 79 07/07/25 17:30 BP 158/79 H 07/07/25 17:30 O2 Del Method Room Air 07/07/25 11:35 Allergies Allergy/AdvReac Type Severity Reaction Status Date / Time fluconazole (From Diflucan) Allergy Rash Verified 07/07/25 11:43 Home Medications ?Medication ?Instructions ?Recorded ?Confirmed ?Type docosahexaenoic acid 200 mg 200 mg PO DAILY 01/06/25 07/07/25 History capsule ( DHA) aspirin 81 mg tablet 81 mg PO DAILY 02/02/25 07/07/25 History Dexcom G7 Sensor (blood-glucose #1 ea 06/15/25 07/07/25 Rx sensor) insulin glargine 100 unit/mL (3 10 unit subcut HS 06/25/25 07/07/25 History mL) subcutaneous pen (Lantus Solostar U-100 Insulin) diphenhydramine HCl 25 mg capsule 25 mg PO HS 07/07/25 07/07/25 History (Aler-Cap) Laboratory Tests 07/07/25 07/07/25 07/07/25 11:22 11:28 11:28 WBC 10.2 H K/mm3 (4.5-10.0) RBC 4.43 M/mm3 (4.2-5.4) Hgb 11.1 L g/dL (12.0-15.0) Hct 34.1 L % (37.0-47.0) MCV 77.0 L fl (80-100) MCH 25.1 L pg (26-34) MCHC 32.6 g/dl (32-36) RDW 14.5 % (11.5-14.5) Plt Count 171 k/mm3 (150-375) MPV 11.8 H fl (7.4-10.4) Immature Gran % (Auto) 0.5 % (0-0.5) Neut % (Auto) 87.6 H % (45.5-73.1) Lymph % (Auto) 5.9 L % (18.3-44.2) Gray % (Auto) 5.9 % (2.6-8.5) Eos % (Auto) 0.0 % (0-4.4) Baso % (Auto) 0.1 L % (0.2-1.2) Lymph # (Auto) 0.60 L K/mm3 (0.9-3.2) Gray # (Auto) 0.6 K/mm3 (0.1-0.6) Eos # (Auto) 0.0 K/mm3 (0-0.3) Baso # (Auto) 0.0 K/mm3 (0.0-0.1) Abs Immat Gran (auto) 0.05 H K/mm3 (0.00-0.031) Absolute Neuts (auto) 8.9 H K/mm3 (1.3-6.7) Absolute Nucleated RBC 0.000 K/mm3 (0.0-0.012) Nucleated RBC % 0.0 % (0.0-0.2) Sodium Cancelled 134 L mmol/L (137-145) Potassium Cancelled Chloride Carbon Dioxide Anion Gap BUN Creatinine Estim Creat Clear Calc Estimated GFR Glucose Uric Acid Calcium Total Bilirubin AST ALT Alkaline Phosphatase Total Protein Albumin Syphilis IgG/IgM Ab HIV 1&2 Ab/P24 Ag 4thGn Negative (Negative) Blood Type Antibody Screen 07/07/25 07/07/25 07/07/25 11:28 11:28 11:28 WBC RBC Hgb Hct MCV MCH MCHC RDW Plt Count MPV Immature Gran % (Auto) Neut % (Auto) Lymph % (Auto) Gray % (Auto) Eos % (Auto) Baso % (Auto) Lymph # (Auto) Gray # (Auto) Eos # (Auto) Baso # (Auto) Abs Immat Gran (auto) Absolute Neuts (auto) Absolute Nucleated RBC Nucleated RBC % Sodium Potassium 4.0 mmol/L (3.4-5.0) Chloride Cancelled 105 mmol/L (98-107) Carbon Dioxide Cancelled 20 L mmol/L (22-30) Anion Gap Cancelled BUN Creatinine Estim Creat Clear Calc Estimated GFR Glucose Uric Acid Calcium Total Bilirubin AST ALT Alkaline Phosphatase Total Protein Albumin Syphilis IgG/IgM Ab HIV 1&2 Ab/P24 Ag 4thGn Blood Type Antibody Screen 07/07/25 07/07/25 07/07/25 11:28 11:28 11:28 WBC RBC Hgb Hct MCV MCH MCHC RDW Plt Count MPV Immature Gran % (Auto) Neut % (Auto) Lymph % (Auto) Gray % (Auto) Eos % (Auto) Baso % (Auto) Lymph # (Auto) Gray # (Auto) Eos # (Auto) Baso # (Auto) Abs Immat Gran (auto) Absolute Neuts (auto) Absolute Nucleated RBC Nucleated RBC % Sodium Potassium Chloride Carbon Dioxide Anion Gap 9 mmol/L (4-12) BUN Cancelled 5 L mg/dL (7-17) Creatinine Cancelled 0.54 L mg/dL (0.7-1.0) Estim Creat Clear Calc Cancelled Estimated GFR Glucose Uric Acid Calcium Total Bilirubin AST ALT Alkaline Phosphatase Total Protein Albumin Syphilis IgG/IgM Ab HIV 1&2 Ab/P24 Ag 4thGn Blood Type Antibody Screen 07/07/25 07/07/25 07/07/25 11:28 11:28 11:28 WBC RBC Hgb Hct MCV MCH MCHC RDW Plt Count MPV Immature Gran % (Auto) Neut % (Auto) Lymph % (Auto) Gray % (Auto) Eos % (Auto) Baso % (Auto) Lymph # (Auto) Gray # (Auto) Eos # (Auto) Baso # (Auto) Abs Immat Gran (auto) Absolute Neuts (auto) Absolute Nucleated RBC Nucleated RBC % Sodium Potassium Chloride Carbon Dioxide Anion Gap BUN Creatinine Estim Creat Clear Calc Not Reportable Estimated GFR Cancelled > 60 (59 - ) Glucose Cancelled 124 H mg/dL (65-110) Uric Acid Cancelled Calcium Total Bilirubin AST ALT Alkaline Phosphatase Total Protein Albumin Syphilis IgG/IgM Ab HIV 1&2 Ab/P24 Ag 4thGn Blood Type Antibody Screen 07/07/25 07/07/25 07/07/25 11:28 11:28 11:28 WBC RBC Hgb Hct MCV MCH MCHC RDW Plt Count MPV Immature Gran % (Auto) Neut % (Auto) Lymph % (Auto) Gray % (Auto) Eos % (Auto) Baso % (Auto) Lymph # (Auto) Gray # (Auto) Eos # (Auto) Baso # (Auto) Abs Immat Gran (auto) Absolute Neuts (auto) Absolute Nucleated RBC Nucleated RBC % Sodium Potassium Chloride Carbon Dioxide Anion Gap BUN Creatinine Estim Creat Clear Calc Estimated GFR Glucose Uric Acid 5.8 mg/dL (2.5-7.5) Calcium Cancelled 8.5 mg/dL (8.4-10.2) Total Bilirubin Cancelled 2.9 H mg/dL (0.2-1.3) AST Cancelled ALT Alkaline Phosphatase Total Protein Albumin Syphilis IgG/IgM Ab HIV 1&2 Ab/P24 Ag 4thGn Blood Type Antibody Screen 07/07/25 07/07/25 07/07/25 11:28 11:28 11:28 WBC RBC Hgb Hct MCV MCH MCHC RDW Plt Count MPV Immature Gran % (Auto) Neut % (Auto) Lymph % (Auto) Gray % (Auto) Eos % (Auto) Baso % (Auto) Lymph # (Auto) Gray # (Auto) Eos # (Auto) Baso # (Auto) Abs Immat Gran (auto) Absolute Neuts (auto) Absolute Nucleated RBC Nucleated RBC % Sodium Potassium Chloride Carbon Dioxide Anion Gap BUN Creatinine Estim Creat Clear Calc Estimated GFR Glucose Uric Acid Calcium Total Bilirubin AST 79 H U/L (14-36) ALT Cancelled 52 H U/L (6-35) Alkaline Phosphatase Cancelled 186 H U/L (38-126) Total Protein Cancelled Albumin Syphilis IgG/IgM Ab HIV 1&2 Ab/P24 Ag 4thGn Blood Type Antibody Screen 07/07/25 07/07/25 11:28 11:28 WBC RBC Hgb Hct MCV MCH MCHC RDW Plt Count MPV Immature Gran % (Auto) Neut % (Auto) Lymph % (Auto) Gray % (Auto) Eos % (Auto) Baso % (Auto) Lymph # (Auto) Gray # (Auto) Eos # (Auto) Baso # (Auto) Abs Immat Gran (auto) Absolute Neuts (auto) Absolute Nucleated RBC Nucleated RBC % Sodium Potassium Chloride Carbon Dioxide Anion Gap BUN Creatinine Estim Creat Clear Calc Estimated GFR Glucose Uric Acid Calcium Total Bilirubin AST ALT Alkaline Phosphatase Total Protein 6.7 g/dL (6.3-8.2) Albumin Cancelled 3.6 g/dL (3.5-5.1) Syphilis IgG/IgM Ab Non-reactive (Nonreactive) HIV 1&2 Ab/P24 Ag 4thGn Cancelled Blood Type A Positive Antibody Screen Negative : gestational age HCG: positive Patient hx anesthesia problems: none Family hx anesthesia problems: none Results Review: All pre-operative results and documents have been reviewed as part of the pre-operative evaluation. [facility] Past Medical History Medical History Obesity, Class III, BMI 40-49.9 (morbid obesity) Proteinuria Pre-eclampsia Gestational diabetes In vitro fertilization Surgical History Surgical History No significant past surgical history Family History Family History Father Cancer Mother Hypertension Social History Social History Smoking status: Never smoker Second hand tobacco smoke exposure: No Alcohol intake: current Substance use: never Lack of Transportation: No Lack of Food: Never True Current Housing: I Have Housing Concerned About Future Housing: No Difficulty Paying Gas/Electric Bills: No Difficulty Paying for Meds: No Currently Unemployed: No Education: High School Diploma/GED Difficulty w/ Childcare or Family Care: No Living arrangements: with family Occupation/Education: occupation Additional occupation/education comments: [employer] Gender identity (if verbalized by the patient): Female Spiritual care concerns: No Exam Day of Procedure 07/07/25 17:33 Patient weight: super morbidly obese Heart: regular rate and rhythm
[2025-07-07] MEDS: fentaNYL CITRATE INJ (*CRX) 100 MCG/2 ML VIAL IV PUSH (21:06)
[2025-07-08] VITALS (199 sets, daily range): BP systolic 106–167; BP diastolic 53–106; PULSE 57–114; RESP 13–22; TEMP 36.6–37.4; O2SAT 96–100
[2025-07-08] MEDS: fentaNYL CITRATE INJ (*CRX) 100 MCG/2 ML VIAL IV PUSH (03:13)
--- NOTE | 2025-07-08 07:59 | P.PNOB_ITS ---
OB - PN: Subj Subjective Date/time seen: 07/08/25 07:59 Interval history: fht 130, cat 2, freq ctx, irreg, cervix 2/50/-3, AROM during cervical check, large amount clear fluid. Continue to monitor, Pitocin after 30 min with reassuring tracing. OB - PN: Obj Data Labs 07/07/25 11:28 07/07/25 11:28 Labs: Laboratory Results - last 24 hr 07/07/25 07/07/25 07/07/25 11:22 11:28 11:28 WBC 10.2 H RBC 4.43 Hgb 11.1 L Hct 34.1 L MCV 77.0 L MCH 25.1 L MCHC 32.6 RDW 14.5 Plt Count 171 MPV 11.8 H Immature Gran % (Auto) 0.5 Neut % (Auto) 87.6 H Lymph % (Auto) 5.9 L [place] % (Auto) 5.9 Eos % (Auto) 0.0 Baso % (Auto) 0.1 L Lymph # (Auto) 0.60 L [place] # (Auto) 0.6 Eos # (Auto) 0.0 Baso # (Auto) 0.0 Abs Immat Gran (auto) 0.05 H Absolute Neuts (auto) 8.9 H Absolute Nucleated RBC 0.000 Nucleated RBC % 0.0 Sodium Cancelled 134 L Potassium Cancelled Chloride Carbon Dioxide Anion Gap BUN Creatinine Estim Creat Clear Calc Estimated GFR Glucose POC Capillary Glucose Uric Acid Calcium Total Bilirubin AST ALT Alkaline Phosphatase Total Protein Albumin Syphilis IgG/IgM Ab HIV 1&2 Ab/P24 Ag 4thGn Negative Blood Type Antibody Screen 07/07/25 07/07/25 07/07/25 11:28 11:28 11:28 WBC RBC Hgb Hct MCV MCH MCHC RDW Plt Count MPV Immature Gran % (Auto) Neut % (Auto) Lymph % (Auto) [place] % (Auto) Eos % (Auto) Baso % (Auto) Lymph # (Auto) [place] # (Auto) Eos # (Auto) Baso # (Auto) Abs Immat Gran (auto) Absolute Neuts (auto) Absolute Nucleated RBC Nucleated RBC % Sodium Potassium 4.0 Chloride Cancelled 105 Carbon Dioxide Cancelled 20 L Anion Gap Cancelled BUN Creatinine Estim Creat Clear Calc Estimated GFR Glucose POC Capillary Glucose Uric Acid Calcium Total Bilirubin AST ALT Alkaline Phosphatase Total Protein Albumin Syphilis IgG/IgM Ab HIV 1&2 Ab/P24 Ag 4thGn Blood Type Antibody Screen 07/07/25 07/07/25 07/07/25 11:28 11:28 11:28 WBC RBC Hgb Hct MCV MCH MCHC RDW Plt Count MPV Immature Gran % (Auto) Neut % (Auto) Lymph % (Auto) [place] % (Auto) Eos % (Auto) Baso % (Auto) Lymph # (Auto) [place] # (Auto) Eos # (Auto) Baso # (Auto) Abs Immat Gran (auto) Absolute Neuts (auto) Absolute Nucleated RBC Nucleated RBC % Sodium Potassium Chloride Carbon Dioxide Anion Gap 9 BUN Cancelled 5 L Creatinine Cancelled 0.54 L Estim Creat Clear Calc Cancelled Estimated GFR Glucose POC Capillary Glucose Uric Acid Calcium Total Bilirubin AST ALT Alkaline Phosphatase Total Protein Albumin Syphilis IgG/IgM Ab HIV 1&2 Ab/P24 Ag 4thGn Blood Type Antibody Screen 07/07/25 07/07/25 07/07/25 11:28 11:28 11:28 WBC RBC Hgb Hct MCV MCH MCHC RDW Plt Count MPV Immature Gran % (Auto) Neut % (Auto) Lymph % (Auto) [place] % (Auto) Eos % (Auto) Baso % (Auto) Lymph # (Auto) [place] # (Auto) Eos # (Auto) Baso # (Auto) Abs Immat Gran (auto) Absolute Neuts (auto) Absolute Nucleated RBC Nucleated RBC % Sodium Potassium Chloride Carbon Dioxide Anion Gap BUN Creatinine Estim Creat Clear Calc Not Reportable Estimated GFR Cancelled > 60 Glucose Cancelled 124 H POC Capillary Glucose Uric Acid Cancelled Calcium Total Bilirubin AST ALT Alkaline Phosphatase Total Protein Albumin Syphilis IgG/IgM Ab HIV 1&2 Ab/P24 Ag 4thGn Blood Type Antibody Screen 07/07/25 07/07/25 07/07/25 11:28 11:28 11:28 WBC RBC Hgb Hct MCV MCH MCHC RDW Plt Count MPV Immature Gran % (Auto) Neut % (Auto) Lymph % (Auto) [place] % (Auto) Eos % (Auto) Baso % (Auto) Lymph # (Auto) [place] # (Auto) Eos # (Auto) Baso # (Auto) Abs Immat Gran (auto) Absolute Neuts (auto) Absolute Nucleated RBC Nucleated RBC % Sodium Potassium Chloride Carbon Dioxide Anion Gap BUN Creatinine Estim Creat Clear Calc Estimated GFR Glucose POC Capillary Glucose Uric Acid 5.8 Calcium Cancelled 8.5 Total Bilirubin Cancelled 2.9 H AST Cancelled ALT Alkaline Phosphatase Total Protein Albumin Syphilis IgG/IgM Ab HIV 1&2 Ab/P24 Ag 4thGn Blood Type Antibody Screen 07/07/25 07/07/25 07/07/25 11:28 11:28 11:28 WBC RBC Hgb Hct MCV MCH MCHC RDW Plt Count MPV Immature Gran % (Auto) Neut % (Auto) Lymph % (Auto) [place] % (Auto) Eos % (Auto) Baso % (Auto) Lymph # (Auto) [place] # (Auto) Eos # (Auto) Baso # (Auto) Abs Immat Gran (auto) Absolute Neuts (auto) Absolute Nucleated RBC Nucleated RBC % Sodium Potassium Chloride Carbon Dioxide Anion Gap BUN Creatinine Estim Creat Clear Calc Estimated GFR Glucose POC Capillary Glucose Uric Acid Calcium Total Bilirubin AST 79 H ALT Cancelled 52 H Alkaline Phosphatase Cancelled 186 H Total Protein Cancelled Albumin Syphilis IgG/IgM Ab HIV 1&2 Ab/P24 Ag 4thGn Blood Type Antibody Screen 07/07/25 07/07/25 07/08/25 11:28 11:28 01:20 WBC RBC Hgb Hct MCV MCH MCHC RDW Plt Count MPV Immature Gran % (Auto) Neut % (Auto) Lymph % (Auto) [place] % (Auto) Eos % (Auto) Baso % (Auto) Lymph # (Auto) [place] # (Auto) Eos # (Auto) Baso # (Auto) Abs Immat Gran (auto) Absolute Neuts (auto) Absolute Nucleated RBC Nucleated RBC % Sodium Potassium Chloride Carbon Dioxide Anion Gap BUN Creatinine Estim Creat Clear Calc Estimated GFR Glucose POC Capillary Glucose 112 H Uric Acid Calcium Total Bilirubin AST ALT Alkaline Phosphatase Total Protein 6.7 Albumin Cancelled 3.6 Syphilis IgG/IgM Ab Non-reactive HIV 1&2 Ab/P24 Ag 4thGn Cancelled Blood Type A Positive Antibody Screen Negative 07/08/25 05:03 WBC RBC Hgb Hct MCV MCH MCHC RDW Plt Count MPV Immature Gran % (Auto) Neut % (Auto) Lymph % (Auto) [place] % (Auto) Eos % (Auto) Baso % (Auto) Lymph # (Auto) [place] # (Auto) Eos # (Auto) Baso # (Auto) Abs Immat Gran (auto) Absolute Neuts (auto) Absolute Nucleated RBC Nucleated RBC % Sodium Potassium Chloride Carbon Dioxide Anion Gap BUN Creatinine Estim Creat Clear Calc Estimated GFR Glucose POC Capillary Glucose 104 Uric Acid Calcium Total Bilirubin AST ALT Alkaline Phosphatase Total Protein Albumin Syphilis IgG/IgM Ab HIV 1&2 Ab/P24 Ag 4thGn Blood Type Antibody Screen OB - PN A/P Time Spent With Patient Time: Total time spent is greater than 50% in coordination of care (as documented) at patient's floor/unit and/or counseling patient:
--- NOTE | 2025-07-08 08:13 | W.PM.OBCSD ---
OB - Delivery Note Procedure Delivery date: 07/08/25 Pre-op diagnosis: Gestational Diabetes, Premature Rupture of Membranes and Previous Delivery Post-op Diagnosis: Same Procedure Performed: Repeat Secondary branch: low cervical, transverse Surgeon: Matti Smith MD Anesthesia type: Spinal Description of Procedure/Findings: Patient prepped and draped in the usual manner for this procedure. Pfannenstiel incision was made and carried down to the fascia and extended the length of the fascia. Sharply and bluntly dissected away from the rectus muscles which were then bluntly entered and peritoneal cavity was assessed. Bladder flap was. Uterus scored clear fluid was noted. Lower edge of the uterus was incised. Vertex was delivered without difficulty, rest of the baby was delivered as well. Placenta was manually removed. There was no bleeding and uterus was then closed using 0 Monocryl in a running interlocking manner. Good hemostasis was achieved. Uterus was returned to the abdomen. Gutters were cleared of serous sings fluids and clots and there was no active bleeding. Fascia was then approximated using 0 Vicryl from the left angle to midline in the right angle to the midline. Subcutaneous tissue was approximated using 0 plain suture and sergio were used to approximate the skin. Patient was sent to recovery room in stable condition. Estimated Blood Loss: 335 Urine Output: 350 Drains: No Packing: No Pathology: Yes Complications: No immediate complications Condition: Stable Disposition: PACU Baby Gestational Age by Date: 35 Infant gender: Female presentation: vertex Placenta delivery description: Manual Removal Cord Vessel Description: 3 Vessels
[2025-07-08] MEDS: LACTATED RINGERS 1,000 ML 125 ML IV CONT (08:20)
[2025-07-08] MEDS: MAGNESIUM SULF 4 GM/WATER100ML 4 GM/100 ML BAG IVPB (09:00)
[2025-07-08] MEDS: MAGNESIUM SULF 20GM/WATER500ML 500 ML 50 MG IV CONT ×2 (09:38→21:14)
[2025-07-08 10:05] LABS: Alanine Aminotransferase 52 U/L (6-35); Albumin Level 3.2 g/dL (3.5-5.1); Alkaline Phosphatase 191 U/L (38-126); Anion Gap 8 mmol/L (4-12); Aspartate Amino Transferase 54 U/L (14-36); Bilirubin,Total 0.7 mg/dL (0.2-1.3); Blood Urea Nitrogen 5 mg/dL (7-17); Calcium 8.6 mg/dL (8.4-10.2); Carbon Dioxide 20 mmol/L (22-30); Chloride 105 mmol/L (98-107); Estimated CRCL calculation 178 ml/min; Estimated Glomerular Filt Rate > 60; Glucose 105 mg/dL (65-110); Potassium 3.3 mmol/L (3.4-5.0); Sodium 133 mmol/L (137-145); Total Protein 6.1 g/dL (6.3-8.2)
[2025-07-08] MEDS: OXYTOCIN 30 UNITS/NS 500 ML 30 UNITS/500 ML BAG IV CONT (10:14)
[2025-07-08] MEDS: LABETALOL HCL 100 MG TABLET 200 MG PO ×2 (11:58→20:10)
[2025-07-08] MEDS: ACETAMINOPHEN 500 MG TABLET 1000 MG PO ×2 (12:53→20:12)
[2025-07-08] MEDS: FAMOTIDINE 20 MG/2 ML VIAL IV PUSH (12:53)
[2025-07-08] MEDS: ONDANSETRON INJ 4 MG/2 ML VIAL IV PUSH (12:53)
--- NOTE | 2025-07-08 12:53 | PM.OBPNVD ---
OB - PN: Subj Subjective Date/time seen: 07/08/25 12:53 Interval history: fht 130, recurrent late decelerations, pitocin 4 units, decelerations improved with pitocin off. Cervix 2.5/70/-3. Recommend primary section for intolerance to labor. Reviewed risk benefits of section, risk of continuing labor. Her questions were answered. She agreed to primary section. She is currently on Magnesium, she did get a dose of Procardia for severe range blood pressures. Blood pressures improved. She did have 2 doses of Labetolol last pm. Patient comments: pain well controlled OB - PN: Obj Data Labs 07/07/25 11:28 07/08/25 09:25 Labs: Laboratory Results - last 24 hr 07/08/25 07/08/25 07/08/25 01:20 05:03 09:20 Sodium Potassium Chloride Carbon Dioxide Anion Gap BUN Creatinine Estim Creat Clear Calc Estimated GFR Glucose POC Capillary Glucose 112 H 104 114 H Calcium Total Bilirubin AST ALT Alkaline Phosphatase Total Protein Albumin 07/08/25 07/08/25 09:25 11:35 Sodium 133 L Potassium 3.3 L Chloride 105 Carbon Dioxide 20 L Anion Gap 8 BUN 5 L Creatinine 0.50 L Estim Creat Clear Calc 178 Estimated GFR > 60 Glucose 105 POC Capillary Glucose 102 Calcium 8.6 Total Bilirubin 0.7 AST 54 H ALT 52 H Alkaline Phosphatase 191 H Total Protein 6.1 L Albumin 3.2 L OB - PN A/P Time Spent With Patient Time: Total time spent is greater than 50% in coordination of care (as documented) at patient's floor/unit and/or counseling patient:
[2025-07-08] MEDS: LACTATED RINGERS 1,000 ML 999 ML (12:55)
--- NOTE | 2025-07-08 12:59 | W.PM.PROC2 ---
Procedure Note - Detailed Date of Procedure 07/08/25 Pre-op Diagnosis intolerance to labor Severe pre-eclampsia. Diet controlled gestational diabetes. Post-op Diagnosis Same Procedure Performed Primary low-transverse section Surgeon Foster Gusman MD Anesthesia Epidural Indications intolerance to labor Findings male 7 lb 4 oz, OT position, apgars 8,8, loose nuchal cord, cord around hands, legs, feet Description of Procedure After informed consent, risks and benefits of the procedure was discussed with the patient. The patient was taken to the operating room where she was placed in the dorsal lithotomy position with leftward tilt. After the prior placed epidural anesthesia was found to be adequate, she was then prepped and draped in the usual sterile fashion. A Pfannenstiel skin incision was made with a scalpel and carried through to the underlying layer of fascia. The fascia was then nicked in the midline, extending bilaterally. The fascia was dissected off the rectus muscles bluntly and sharply, superiorly and inferiorly. The rectus muscles were in the midline, and peritoneum was identified and entered bluntly. The pelvic organs were visualized. The bladder blade was then inserted. The vesicouterine peritoneum was identified and entered sharply with Metzenbaum scissors and extended bilaterally. Bladder was displaced below lower uterine segment with bladder blade. The low transverse uterine incision was then made with the scalpel and extended with bilateral index fingers in a crescent-shaped fashion. The head was delivered and nuchal cord manually reduced the rest of the was delivered. The cord was wrapped around the abdomen and the arm and hand and feet. The nose and mouth suctioned. The cord was clamped twice and cut. The infant was then handed off to the awaiting pediatric staff. The placenta was then delivered manually. The uterine cavity was sponge curetted. The uterus was then exteriorized. The uterine incision was then closed with 0 vicryl in a running locked fashion. A second layer of 0 vicryl was used in an imbricating fashion for hemostasis. Posterior cul de sac cleared of debris. The uterus was then returned to the abdomen. Bilateral gutters were cleared off all clots and debris. The uterine incision was noted to be hemostatic. Interceed placed on uterine incision and vertically on front of uterus. The peritoneum was approximated with 3.0 vicryl. The muscle bellies were inspected and noted to be hemostatic. The subfascial layer was noted to be hemostatic, and the fascia was closed with 0 Vicryl in a running fashion. The subcutaneous layer was then approximated with 3-0 Vicryl. The skin was closed with Ensorb sergio and Mipelex dressing. All instruments, needle, and lap counts were correct x3. The patient was taken to the recovery room in stable condition. Estimated Blood Loss 700 Urine Output 350 Drains No Packing No Pathology Yes (Placenta and cord) Complications No immediate complications Condition Stable Disposition Floor [facility] Billing Surgery - Charge Forward: Surgery Billing
[2025-07-08] MEDS: AZITHROMYCIN IV 500 MG in SODIUM CHLORIDE 0.9% IV 250 ML IVPB (13:01)
--- NOTE | 2025-07-08 13:01 | P.DS_ITS ---
DS: Admitting Diagnosis Discharge Date 07/10/25 Admitting Diagnosis 1. Severe pre-eclampsia. DS: Discharge Diagnosis Discharge Diagnosis (1) Pre-eclampsia: Code(s): O14.90 - Unspecified pre-eclampsia, unspecified trimester Status: Acute (2) Gestational diabetes: Code(s): O24.419 - Gestational diabetes mellitus in , unspecified control Status: Acute (3) Delivery by section: Status: Acute OB - DS: Summary Hospital Course Hospital Course: She was admitted for [facility] for severe pre-eclampsia with elevated liver enzymes. During induction process she had labile severe range blood pressures. She was started on Magnesium. Labor course significant for intolerance to labor. She had a primary section. OB Procedures : NST and Ultrasound OB Procedures Intrapartum: OB Procedures: : None Peripartum Data Procedures: Procedures Operation Date: 07/08/25 12:45 <No data on this case meets the specified criteria> Time Spent with Patient Time attestation: Total time spent providing and/or coordinating discharge services: DS: Data Data Completed and Pending Labs on day of discharge: Labs from last 24 hours 07/08/25 07/08/25 07/08/25 11:35 09:25 09:20 Sodium 133 L Potassium 3.3 L Chloride 105 Carbon Dioxide 20 L Anion Gap 8 BUN 5 L Creatinine 0.50 L Estim Creat Clear Calc 178 Estimated GFR > 60 Glucose 105 POC Capillary Glucose 102 114 H Calcium 8.6 Total Bilirubin 0.7 AST 54 H ALT 52 H Alkaline Phosphatase 191 H Total Protein 6.1 L Albumin 3.2 L 07/08/25 07/08/25 05:03 01:20 Sodium Potassium Chloride Carbon Dioxide Anion Gap BUN Creatinine Estim Creat Clear Calc Estimated GFR Glucose POC Capillary Glucose 104 112 H Calcium Total Bilirubin AST ALT Alkaline Phosphatase Total Protein Albumin Discharge Plan Discharge Attending physician on discharge: Foster Gusman Consulting providers: Alexi Mistry; Brooks Vanessa Jr.; Sonia Rivas Discharging Clinician: Matti Smith Anticipated Discharge Date/Time: 07/10/25 09:50 Patient Disposition: Home Activity: may shower, no straining, no driving and pelvic rest Diet: regular Wound Care Instructions: incision open to air Discharge Instructions: Education: Mom and Baby Guide Given to: Mother Follow-Up: Call your delivering provider's office for an appointment to be seen in: 1 week Mom and baby should come to the [facility] for the follow-up appointment. Appointment Date/Time: July 12, 2025 at 11:00 am What to expect at your follow-up visit: Blood Pressure Check Physical Assessment Call [phone] if you are unable to keep your appointment time. BREAST CARE: * Wear a snug supportive bra. * For engorgement discomfort: Breast Feeding: * Apply warm moist washcloths * Express milk as needed to relieve engorgement * Wear loose clothing Bottle Feeding: * May apply ice packs * For sore nipples: * Identify correct latch-on * Apply warm moist washcloths before and after nursing * Air dry nipples after nursing * May apply Lansinoh cream to nipples ABDOMINAL INCISION: * Allow incision to air dry * Do NOT use lotions for powders on your incision * When showering, allow soap and water to run over the incision, but do not wash incision PERINEAL CARE: * Until bleeding stops, use your lincoln bottle after urinating * Change your pad frequently throughout the day * You may take sitz baths several times a day (fill your bathtub with warm water and soak for 20 minutes.) Do NOT bathe in the water * No tub baths until seen by your physician - You may shower ACTIVITY: * Rest as much as possible. * Do not exercise or lift anything heavier than your baby (such as laundry or other children.) * Avoid stairs or driving as much as possible. * Do not put anything into the vagina. No douching, tampons, or sexual activity until seen by physician. NOTIFY PHYSICIAN IF YOU HAVE ANY QUESTIONS OR IF ANY OF THE FOLLOWING SYMPTOMS OCCUR: * If your incision becomes red, swollen, or more painful than what you have experienced in the hospital. * If your vaginal bleeding becomes foul smelling. * If your vaginal bleeding becomes more heavy than a period or if your bleeding changes from pink to bright red. However, you may pass an occasional walnut- sized clot once or twice for the first week . * If you experience a sharp, shooting pain in you calves. * If you discover a hard, reddened area on your breast or if you experience flu- like symptoms. DIET: * Eat regular, well-balanced meals. * Drink plenty of fluids daily. If , drink to thirst. Patient Instructions: Antibiotic Form Patient Language: Swiss Stand Alone Forms: General Discharge Information Follow-up/Referrals: Foster Gusman MD [Physician, PUBLIC HEALTH ADMINISTRATOR] - 1 Week Discharge Medications: New ibuprofen 600 mg Tablet 600 mg PO Q6HR Qty: 30 0RF labetalol 100 mg Tablet 200 mg PO Q12HR Qty: 60 0RF Continued DHA 200 mg capsule 200 mg PO DAILY diphenhydramine HCl [Aler-Cap] 25 mg capsule 25 mg PO HS Discontinued aspirin 81 mg tablet 81 mg PO DAILY insulin glargine [Lantus Solostar U-100 Insulin] 100 unit/mL (3 mL) insulin pen 10 unit subcut HS Date of admission: 07/07/25 10:22 Primary Care Provider: PHYSICIAN,NUCLEAR WORKER TECHNICIAN Admitting Provider: Foster Gusman Attending physician on admission: Matti Smith Condition: Stable
[2025-07-08] MEDS: ceFAZolin 3 GM/D5W 100 ML 100 ML IVPB (13:10)
[2025-07-08] MEDS: KETOROLAC 15 MG/ML VIAL (*BKC) IV PUSH (15:36)
--- NOTE | 2025-07-08 18:31 | PC.NURSE ---
Patient transferred to post room #277 via bed. Support person present. Oriented to unit, room, information board, rooming in, admission packet and security measures. Patient verbalizes understanding.
[2025-07-08] MEDS: DOCUSATE SODIUM 100 MG CAPSULE PO (20:12)
[2025-07-08] MEDS: SIMETHICONE 80 MG TAB.CHEW PO (20:12)
[2025-07-08] MEDS: KCL 20 MEQ/D5/0.45% SOD CHL 1,000 ML 75 ML IV CONT (20:30)
[2025-07-08] MEDS: ceFAZolin 2 GM in SODIUM CHLORIDE 0.9% IV 50 ML 100 ML IVPB (20:38)
[2025-07-09] VITALS (8 sets, daily range): BP systolic 108–147; BP diastolic 57–83; PULSE 78–105; RESP 16–20; TEMP 36.1–36.8; O2SAT 98–100
[2025-07-09] MEDS: ACETAMINOPHEN 500 MG TABLET 1000 MG PO ×5 (00:56→23:16)
[2025-07-09 04:26] LABS: Hematocrit 22.9 % (37.0-47.0); Hemoglobin 7.2 g/dL (12.0-15.0); Immature Granulocyte Percent A 0.5 % (0-0.5); Lymphocytes Absolute Auto 1.01 K/mm3 (0.9-3.2); Mean Corpuscular HGB Conc 31.4 g/dl (32-36); Mean Corpuscular Hemoglobin 25.1 pg (26-34); Mean Corpuscular Volume 79.8 fl (80-100); Nucleated Red Blood Cells Absolute Auto 0.000 K/mm3 (0.0-0.012); Nucleated Red Blood Cells Perc 0.0 % (0.0-0.2); Platelet Count Result 147 k/mm3 (150-375); Red Blood Count 2.87 M/mm3 (4.2-5.4); White Blood Count 8.6 K/mm3 (4.5-10.0)
[2025-07-09 04:34] LABS: Alanine Aminotransferase 29 U/L (6-35); Aspartate Amino Transferase 34 U/L (14-36)
[2025-07-09] MEDS: ceFAZolin 2 GM in SODIUM CHLORIDE 0.9% IV 50 ML 100 ML IVPB ×2 (05:00→16:00)
[2025-07-09] MEDS: IBUPROFEN 600 MG TABLET PO ×4 (05:00→23:16)
--- NOTE | 2025-07-09 08:29 | PM.OBPNVD ---
OB - PN: Subj Subjective Date/time seen: 07/09/25 08:29 S: Diet tolerated. Ambulation tolerated. Pain well controlled. Voiding this morning. O: VSS afebrile Abdomen: Positive bowel sounds soft Labs: Noted A: Postop day 1 status post , doing well. Magnesium will be stopped this afternoon. After that if patient desires past to see baby that would be. P: Routine postoperative care. Potential for discharge home tomorrow. Interval history: fht 130, recurrent late decelerations, pitocin 4 units, decelerations improved with pitocin off. Cervix 2.5/70/-3. Recommend primary section for intolerance to labor. Reviewed risk benefits of section, risk of continuing labor. Her questions were answered. She agreed to primary section. She is currently on Magnesium, she did get a dose of Procardia for severe range blood pressures. Blood pressures improved. She did have 2 doses of Labetolol last pm. OB - PN: Obj Data Labs 07/09/25 04:11 07/08/25 09:25 Labs: Laboratory Results - last 24 hr 07/08/25 07/08/25 07/08/25 09:20 09:25 11:35 WBC RBC Hgb Hct MCV MCH MCHC RDW Plt Count MPV Immature Gran % (Auto) Neut % (Auto) Lymph % (Auto) [place] % (Auto) Eos % (Auto) Baso % (Auto) Lymph # (Auto) [place] # (Auto) Eos # (Auto) Baso # (Auto) Abs Immat Gran (auto) Absolute Neuts (auto) Absolute Nucleated RBC Nucleated RBC % Sodium 133 L Potassium 3.3 L Chloride 105 Carbon Dioxide 20 L Anion Gap 8 BUN 5 L Creatinine 0.50 L Estim Creat Clear Calc 178 Estimated GFR > 60 Glucose 105 POC Capillary Glucose 114 H 102 Calcium 8.6 Total Bilirubin 0.7 AST 54 H ALT 52 H Alkaline Phosphatase 191 H Total Protein 6.1 L Albumin 3.2 L 07/09/25 04:11 WBC 8.6 RBC 2.87 L Hgb 7.2 L D Hct 22.9 L MCV 79.8 L MCH 25.1 L MCHC 31.4 L RDW 14.8 H Plt Count 147 L MPV 11.4 H Immature Gran % (Auto) 0.5 Neut % (Auto) 79.9 H Lymph % (Auto) 11.7 L [place] % (Auto) 6.9 Eos % (Auto) 0.8 Baso % (Auto) 0.2 Lymph # (Auto) 1.01 [place] # (Auto) 0.6 Eos # (Auto) 0.1 Baso # (Auto) 0.0 Abs Immat Gran (auto) 0.04 H Absolute Neuts (auto) 6.9 H Absolute Nucleated RBC 0.000 Nucleated RBC % 0.0 Sodium Potassium Chloride Carbon Dioxide Anion Gap BUN Creatinine Estim Creat Clear Calc Estimated GFR Glucose POC Capillary Glucose Calcium Total Bilirubin AST 34 ALT 29 Alkaline Phosphatase Total Protein Albumin OB - PN A/P Time Spent With Patient Time: Total time spent is greater than 50% in coordination of care (as documented) at patient's floor/unit and/or counseling patient:
[2025-07-09] MEDS: SIMETHICONE 80 MG TAB.CHEW PO ×3 (08:30→17:39)
[2025-07-09] MEDS: MAGNESIUM SULF 20GM/WATER500ML 500 ML 50 MG IV CONT (08:39)
[2025-07-09] MEDS: MULTIVIT/MIN/PREN/FOL AC/IRON TABLET 1 TAB PO (08:40)
[2025-07-09] MEDS: DOCUSATE SODIUM 100 MG CAPSULE PO ×2 (08:41→17:39)
--- NOTE | 2025-07-09 08:59 | PM.OBDSVD ---
DS: Admitting Diagnosis Discharge Date 07/10/2025 Admitting Diagnosis DS: Discharge Diagnosis Discharge Diagnosis (1) , delivered: Code(s): O80 - Encounter for full-term uncomplicated delivery Status: Acute OB - DS: Summary Hospital Course Hospital Course: She was admitted for [facility] for severe pre-eclampsia with elevated liver enzymes. During induction process she had labile severe range blood pressures. She was started on Magnesium. Labor course significant for intolerance to labor. She had a primary section. OB Procedures : None OB Procedures Intrapartum: OB Procedures: : None Peripartum Data Procedures: Procedures Operation Date: 07/08/25 12:45 Actual Procedure Side Surgeon p Section Fsoter Gusman MD Time Spent with Patient Time attestation: Total time spent providing and/or coordinating discharge services: DS: Data Data Completed and Pending Labs on day of discharge: Labs from last 24 hours 07/09/25 07/08/25 07/08/25 04:11 11:35 09:25 WBC 8.6 RBC 2.87 L Hgb 7.2 L D Hct 22.9 L MCV 79.8 L MCH 25.1 L MCHC 31.4 L RDW 14.8 H Plt Count 147 L MPV 11.4 H Immature Gran % (Auto) 0.5 Neut % (Auto) 79.9 H Lymph % (Auto) 11.7 L [place] % (Auto) 6.9 Eos % (Auto) 0.8 Baso % (Auto) 0.2 Lymph # (Auto) 1.01 [place] # (Auto) 0.6 Eos # (Auto) 0.1 Baso # (Auto) 0.0 Abs Immat Gran (auto) 0.04 H Absolute Neuts (auto) 6.9 H Absolute Nucleated RBC 0.000 Nucleated RBC % 0.0 Sodium 133 L Potassium 3.3 L Chloride 105 Carbon Dioxide 20 L Anion Gap 8 BUN 5 L Creatinine 0.50 L Estim Creat Clear Calc 178 Estimated GFR > 60 Glucose 105 POC Capillary Glucose 102 Calcium 8.6 Total Bilirubin 0.7 AST 34 54 H ALT 29 52 H Alkaline Phosphatase 191 H Total Protein 6.1 L Albumin 3.2 L 07/08/25 09:20 WBC RBC Hgb Hct MCV MCH MCHC RDW Plt Count MPV Immature Gran % (Auto) Neut % (Auto) Lymph % (Auto) [place] % (Auto) Eos % (Auto) Baso % (Auto) Lymph # (Auto) [place] # (Auto) Eos # (Auto) Baso # (Auto) Abs Immat Gran (auto) Absolute Neuts (auto) Absolute Nucleated RBC Nucleated RBC % Sodium Potassium Chloride Carbon Dioxide Anion Gap BUN Creatinine Estim Creat Clear Calc Estimated GFR Glucose POC Capillary Glucose 114 H Calcium Total Bilirubin AST ALT Alkaline Phosphatase Total Protein Albumin Discharge Plan Discharge Attending physician on discharge: Foster Gusman Consulting providers: Alexi Mistry Discharging Clinician: Matti Smith Patient Disposition: Home Activity: may shower, no straining, no driving and pelvic rest Diet: regular Wound Care Instructions: incision open to air Patient Instructions: Antibiotic Form Patient Language: Frisian Stand Alone Forms: General Discharge Information Follow-up/Referrals: Foster Gusman MD [Physician, HOME RESTORATION SERVICE SUPERVISOR] - 1 Week Discharge Medications: New oxycodone 5 mg Tablet 5 mg PO Q4H PRN (Reason: Pain Rated 4-6) Qty: 20 0RF labetalol 100 mg Tablet 200 mg PO Q12HR Qty: 60 0RF ibuprofen 600 mg Tablet 600 mg PO Q6HR Qty: 30 0RF Continued DHA 200 mg capsule 200 mg PO DAILY diphenhydramine HCl [Aler-Cap] 25 mg capsule 25 mg PO HS Discontinued aspirin 81 mg tablet 81 mg PO DAILY insulin glargine [Lantus Solostar U-100 Insulin] 100 unit/mL (3 mL) insulin pen 10 unit subcut HS No Action (DME) Dexcom G7 Sensor Device See Rx Instructions .MEDSUPPLY Qty: 1 4RF Rx Instructions: Apply sensor for 10 days Date of admission: 07/07/25 10:22 Primary Care Provider: PHYSICIAN,RN PSYCH Admitting Provider: Foster Gusman Attending physician on admission: Foster Gusman Condition: Stable
[2025-07-09] MEDS: KCL 20 MEQ/D5/0.45% SOD CHL 1,000 ML 75 ML IV CONT (11:30)
[2025-07-09] MEDS: DEXTROSE 5%/0.45% SOD CHL 1,000 ML 75 ML IV CONT (11:30)
--- NOTE | 2025-07-09 18:13 | WPDANLDNPN2 ---
Anes-Prog Note L&D-Neuraxial Date/Time: 07/09/25 18:13 Patient feedback: Patient satisfied with post-operative pain management.
--- NOTE | 2025-07-09 18:14 | WPDANLDPN2 ---
Anes-Prog Note L&D Date/Time: 07/09/25 18:14 Neuro status: Neuro function grossly intact. Cardiovascular status: normal Respiratory status: normal Airway patency: baseline Mental status: baseline Post-Op hydration status: normal Vital Signs: Last Vital Signs Temp 36.4 C 07/09/25 15:53 Pulse 105 H 07/09/25 15:53 Resp 18 07/09/25 15:53 BP 119/67 07/09/25 15:53 Pulse Ox 99 07/09/25 15:53 O2 Del Method Room Air 07/08/25 16:15 Pain score (VAS): 0 I/O: Intake & Output 07/09/25 07/09/25 07/09/25 07:59 15:59 23:59 Intake Total 550 1000 Output Total 400 1000 600 Balance 150 0 -600 Post-procedural complaints: none Patient feedback: Patient satisfied with anesthetic care.
[2025-07-09] MEDS: LABETALOL HCL 100 MG TABLET 200 MG PO (19:42)
[2025-07-10 03:13] VITALS: BP 145/65; PULSE 88
[2025-07-10] MEDS: IBUPROFEN 600 MG TABLET PO (05:24)
[2025-07-10] MEDS: ACETAMINOPHEN 500 MG TABLET 1000 MG PO (05:24)
[2025-07-10 08:30] VITALS: BP 128/70; PULSE 95; RESP 16; TEMP 36.9; O2SAT 98
[2025-07-10] MEDS: DOCUSATE SODIUM 100 MG CAPSULE PO (09:15)
[2025-07-10] MEDS: SIMETHICONE 80 MG TAB.CHEW PO (09:15)
[2025-07-10] MEDS: MULTIVIT/MIN/PREN/FOL AC/IRON TABLET 1 TAB PO (09:16)
[2025-07-10] MEDS: LABETALOL HCL 100 MG TABLET 200 MG PO (09:16)
[2025-07-12 11:12] VITALS: BP 123/45; PULSE 84; RESP 18; TEMP 36.8; O2SAT 100
== END 2025-07-10 10:50 | disposition home or self-care (01) | DRG 788 ==
LOC: ANHOB2 07-10 09:52 → ANHLDR 07-11 10:54
PROVIDERS: Admitting Provider Obstetrics & Gynecology; Visit Provider Obstetrics & Gynecology
PROC: 10D00Z1 Extraction of Products of Conception, Low, Open Approach (ICD-10-PCS; CPT 59514; principal; 2025-07-08 12:45)
DX: O14.14 Severe pre-eclampsia complicating childbirth (principal); Z3A.38 38 weeks gestation of pregnancy; Z37.0 Single live birth; O24.420 Gestational diabetes mellitus in childbirth, diet controlled; O69.81X0 Labor and delivery complicated by cord around neck, without compression, not applicable or unspecified; O76 Abnormality in fetal heart rate and rhythm complicating labor and delivery; O99.214 Obesity complicating childbirth; E66.01 Morbid (severe) obesity due to excess calories
CPT/HCPCS: 36415; 80053; 82948; 84450; 84460; 84550; 85025; 86593; 86703; 86850; 86900; 86901; J0690; A9270; G0432; J0456; J1885; J2274; J2405; J2590; J2795; J3010; J3475; J3480; J7050; J7120

== ENCOUNTER 2025-08-06 08:46 | Observation (INO) | payer OTHER, SELFPAY ==
[2025-08-06] VITALS (34 sets, daily range): BP systolic 102–119; BP diastolic 29–57; PULSE 84–168; RESP 16–20; TEMP 37.1–38.7; O2SAT 98–100; BMI 45.0
--- NOTE | ~2025-08-06 | MR_ITS ---
EXAMINATION: MR MRCP wo/w con/w 3D wo ind DATE: 08/07/2025 12:13 INDICATION: Pancreatitis. Elevated liver enzymes. History of cholelithiasis. TECHNIQUE: Magnetic resonance imaging (MRI) of the abdomen was performed without and with intravenous contrast. Sequences included coronal T2-weighted FS FSE, coronal T2-weighted FSE, axial T1-weighted LAVA, coronal FS FIESTA, axial dual- echo T1-weighted SPGR, coronal lava-FLEX, sagittal T2-weighted FSE, axial T2- weighted FSE, and axial DWI. Thick-slab T2-weighted FSE images were obtained for magnetic resonance cholangiopancreatography (MRCP). Maximum intensity projection 3-D reconstructions of the volumetric data were created by the technologist. Postcontrast sequences included coronal LAVA-flex and time course of axial T1- weighted LAVA. COMPARISON: Ultrasound right upper quadrant, 08/06/2025. FINDINGS: Lung bases do not show any focal abnormalities. Hepatomegaly and splenomegaly are noted with craniocaudal span measuring 19 cm and 15 cm respectively. Numerous small gallstones are noted in the gallbladder. Common hepatic duct measures 6 mm and common bile duct 5 mm in diameter. No calculi are noted in the extrahepatic bile ducts. Pancreatic duct is normal in caliber. No peripancreatic inflammatory changes or effusion is seen. On postcontrast study, evidence of focal fatty infiltration is noted. No abnormal enhancement on the postcontrast study. No retroperitoneal adenopathy or ascites. Kidneys do not show focal lesions. IMPRESSION: 1. Hepatomegaly and splenomegaly. Focal fatty infiltration of liver. 2. Multiple small gallstones in the gallbladder without edema of the wall of the gallbladder consistent with cholecystitis. Extrahepatic bile ducts are normal in caliber. No choledocholithiasis is seen. 3. Pancreatic duct is normal in caliber. No evidence of peripancreatic inflammation or effusion is seen. Reviewed, dictated and finalized at location T. [employer] DESIGNER IMPRESSION: 1. Hepatomegaly and splenomegaly. Focal fatty infiltration of liver. 2. Multiple small gallstones in the gallbladder without edema of the wall of th e gallbladder consistent with cholecystitis. Extrahepatic bile ducts are normal in caliber. No choledocholithiasis is seen. 3. Pancreatic duct is normal in caliber. No evidence of peripancreatic inflamma tion or effusion is seen.
--- NOTE | ~2025-08-06 | US_ITS ---
US right upper quadrant INDICATION: Right upper quadrant and epigastric pain PROCEDURE: Realtime right upper abdominal ultrasound. COMPARISON: No prior studies for comparison. FINDINGS: The pancreas is normal without focal mass or pancreatic ductal dilation. Liver echotexture is increased consistent with fatty infiltration. Liver is enlarged measuring 21.9 cm. There is normal directional flow in the portal vein. Gallbladder contains stones with gallbladder wall thickening and trace pericholecystic fluid. Common bile duct measures 6 mm. No sonographic Duque's sign. Right renal echotexture is grossly normal. Right kidney measures 12.4 cm. IMPRESSION: 1: Cholelithiasis with gallbladder wall thickening and trace pericholecystic fluid. Findings compatible with cholecystitis. Clinically correlate. 2: Hepatomegaly with fatty infiltration of the liver. Reviewed, dictated and finalized at location O. CREW MEMBER IMPRESSION: 1: Cholelithiasis with gallbladder wall thickening and trace pericholecystic fl uid. Findings compatible with cholecystitis. Clinically correlate. 2: Hepatomegaly with fatty infiltration of the liver.
--- NOTE | 2025-08-06 08:46 | PC.NURSE ---
Dr. Pereyra had called this morning at 0655 after speaking with [facility] ED physician. To continue IV fluids pt is on including Magnesium sulfate. Call for any additional orders needed after pt arrives.
[2025-08-06] MEDS: MAGNESIUM SULF 20GM/WATER500ML 500 ML 50 MG IV CONT (09:00)
[2025-08-06] MEDS: KCL 40 MEQ/0.9% SOD CHL 1,000 ML 70 ML IV CONT (09:00)
--- NOTE | 2025-08-06 09:05 | OBADM ---
This patient, Lindsey Swan, admitted to the OB room 116 for observation. Patient/family oriented to hospital policies and general routines including ID bracelet, bed and alarms, visiting hours, pain management, procedures, bathroom and other care routines, personal items, smoking policy, room service/diet, and visiting hours. Patient/Family are encouraged to report perceived risks to care and to ask questions if they do not understand what they are told or what they should do.
--- NOTE | 2025-08-06 09:58 | PC.NURSE ---
Called Dr. Pereyra after reviewing chart from [facility]. Discussed labs and CT with Dr. Pereyra. Informed him U/S tech is at the pt bedside now. Orders received for repeat H&H and to call with U/S results. Also OK to increase NS with 40 KCl to 75 ml/hr.
[2025-08-06 10:51] LABS: Hematocrit 30.7 % (37.0-47.0); Hemoglobin 9.2 g/dL (12.0-15.0)
--- NOTE | 2025-08-06 10:59 | PC.NURSE ---
Dr. Pereyra informed of U/S report. Pt remains pain free. Order received to discontinue Magnesium sulfate and surgical consult.
--- NOTE | 2025-08-06 11:07 | PC.NURSE ---
Dr. Juarez's exchange informed of consult.
--- NOTE | 2025-08-06 11:16 | PC.NURSE ---
Dr. Juarez returned page and informed of this pt's transfer from [place] ED at 4 weeks post Section with pancreatitis and cholelithiasis. requests GI consult.
--- NOTE | 2025-08-06 11:20 | PC.NURSE ---
Dr. Horta informed of consult on this 4 week post by section pt with cholelithiasis and pancreatitis.
--- NOTE | 2025-08-06 12:25 | PC.NURSE ---
Dr. Pereyra has been in to see and assess pt. Informed of GI consult by Dr. Juarez. Order received to increase IV fluids to 125 ml/hr.
--- NOTE | 2025-08-06 12:41 | P.HP_ITS ---
H&P: HPI History of Present Illness Date/Time: 08/06/25 12:41 Chief Complaint: Abdominal pain Narrative: 34 y/o 4 weeks s/p . She developed pain between her shoulder blades that then moved to her epigastric region about 10pm last night, after having a burger and fries a few hours earlier. She presented to another [facility] ED. Workup there showed a bp in the 170/80 range, elevated transamin ases, and elevated lipase. CT of chest was OK, CT of abdomen showed a large intramuscular hematoma. She was transferred here to [facility]. No headahce, no visual change, no edema. Pumping the breasts. Baby doing well. She had preeclampsia in , and we were able to stop antihypertensives about 1 week . She feels just fine now. No pain, no nausea. She's hungry. No fevers. She has been totally normotensive here at [facility]. Has been receiving magnesium sulfate and Zosyn. US here shows cholelithiasis with gallbladder wall thickening and trace pericholecystic fluid. Also some hepatomegaly with fatty infiltration of the liver. Serial H/H ok, so no concern for expanding abdominal wall hematoma. Review of Systems Review of Systems: All systems reviewed & are unremarkable except as noted in HPI and below PMFSH Past Medical History Medical History Obesity, Class III, BMI 40-49.9 (morbid obesity) Proteinuria Pre-eclampsia Gestational diabetes In vitro fertilization Surgical History Surgical History Hx of section No significant past surgical history Family History Family History Father Cancer, Onset Age: 1 Cancer of the eye- left eye removed Mother Hypertension Social History Social History Smoking status: Never smoker Second hand tobacco smoke exposure: No Alcohol intake: never Substance use: never Lack of Transportation: No Lack of Food: Never True Current Housing: I Have Housing Concerned About Future Housing: No Difficulty Paying Gas/Electric Bills: No Difficulty Paying for Meds: No Currently Unemployed: No Education: High School Diploma/GED Difficulty w/ Childcare or Family Care: No Living arrangements: with family Occupation/Education: occupation Additional occupation/education comments: [employer] service Gender identity (if verbalized by the patient): Female Spiritual care concerns: No Meds Home Medications and Allergies Home Medications ?Medication ?Instructions ?Recorded ?Confirmed ?Type docosahexaenoic acid 200 mg 200 mg PO DAILY 01/06/25 1 10/07/24 History capsule ( DHA) famotidine 20 mg tablet (Acid 20 mg PO DAILY 08/06/25 08/06/25 History Controller) Allergies Allergy/AdvReac Type Severity Reaction Status Date / Time fluconazole (From Diflucan) Allergy Rash Verified 08/06/25 12:03 Vital Signs Vital Signs - 24 hr 08/06/25 09:05 08/06/25 09:05 08/06/25 09:05 Temperature 98.9 F Pulse Rate 89 89 Respiratory Rate 20 Blood Pressure 105/29 L 105/29 L Pulse Oximetry 100 Oxygen Delivery Room Air 08/06/25 09:06 08/06/25 09:11 08/06/25 09:16 Temperature Pulse Rate 88 Respiratory Rate Blood Pressure 104/44 L Pulse Oximetry 100 100 98 Oxygen Delivery 08/06/25 09:21 08/06/25 09:26 08/06/25 09:31 Temperature Pulse Rate Respiratory Rate Blood Pressure Pulse Oximetry 100 100 100 Oxygen Delivery 08/06/25 09:36 08/06/25 09:41 08/06/25 09:46 Temperature Pulse Rate Respiratory Rate Blood Pressure Pulse Oximetry 100 99 99 Oxygen Delivery 08/06/25 09:51 08/06/25 09:56 08/06/25 10:00 Temperature Pulse Rate 88 Respiratory Rate Blood Pressure 111/47 L Pulse Oximetry 100 99 Oxygen Delivery 08/06/25 10:01 08/06/25 10:06 08/06/25 10:11 Temperature Pulse Rate Respiratory Rate Blood Pressure Pulse Oximetry 99 99 100 Oxygen Delivery 08/06/25 10:16 08/06/25 10:21 08/06/25 10:26 Temperature Pulse Rate Respiratory Rate Blood Pressure Pulse Oximetry 99 100 100 Oxygen Delivery 08/06/25 10:31 08/06/25 10:36 08/06/25 10:41 Temperature Pulse Rate Respiratory Rate Blood Pressure Pulse Oximetry 100 100 100 Oxygen Delivery 08/06/25 12:00 08/06/25 12:01 08/06/25 12:05 Temperature Pulse Rate 90 Respiratory Rate Blood Pressure 102/37 L Pulse Oximetry 99 100 Oxygen Delivery 08/06/25 12:10 08/06/25 12:14 Temperature Pulse Rate Respiratory Rate Blood Pressure Pulse Oximetry 100 100 Oxygen Delivery Exam Const: Other: Well-developed, well-nourished female in no acute distress. Neck: Other: Neck: Trachea midline, no thyromegaly or masses. Resp: Other: Lungs: Normal respiratory effort. Clear to auscultation bilaterally. Cardio: Other: Heart: Regular rate and rhythm with normal S1-S2. GI: Other: ABD: Soft, nontender, nondistended. No RUQ tenderness, no epigastric tenderness. Incision is clean, dry and intact and looks great. Fundus is firm and nontender. Some dependent edema in the panniculus. : Other: Deferred. Back/Spine/Pelvis: Other: Back: No CVA tenderness. Skin: Other: Skin: No lesions, rashes or ulcers noted. Extrem: Other: Extremities: nontender with no edema Psych: Other: Mental status grossly normal, with normal mood and affect. Results Labs Labs: Short CBC 08/06/25 Range/Units 10:40 Hgb 9.2 L (12.0-15.0) g/dL Hct 30.7 L (37.0-47.0) % Assessment and Plan Assessment and plan (1) Cholecystitis with cholelithiasis: Code(s): K80.10 - Calculus of gallbladder with chronic cholecystitis without obstruction Status: Acute Assessment and Plan: A: cholelithiasis with cholecystitis, elevated transaminases and elevated lipase. I am no longer worried that this represents preeclampsia. P: We have stopped the magnesium sulfate. We have asked for a general surgery consult. Dr. Juarez is aware, and has also asked for GI consultation. Will keep her NPO for now and continue the Zosyn.
[2025-08-06] MEDS: PIPERACILLIN/TAZOBACTAM SOD 3.375 GM in SODIUM CHLORIDE 0.9% IV 50 ML 100 ML IVPB ×2 (13:13→20:02)
--- NOTE | 2025-08-06 15:26 | PC.NURSE ---
Dr. Pereyra informed of 101.[address] Horta just arrived on unit while on phone with Dr. Pereyra. Dr. Pereyra waiting to see what Dr. Horta orders.
--- NOTE | 2025-08-06 15:30 | PC.NURSE ---
Dr. Horta reviewed lab results and CT report from [place]. informed pt had her RUQ U/S here this morning. in to see and assess pt.
--- NOTE | 2025-08-06 15:35 | PC.NURSE ---
Dr. Horta gave orders for pt to have ice chips now, COVID test, and oral Tylenol for fever.
--- NOTE | 2025-08-06 15:39 | WPDGICN ---
Assessment and Plan Assessment and plan (1) Gallstone pancreatitis: Code(s): K85.10 - Biliary acute pancreatitis without necrosis or infection Status: Acute Assessment and Plan: abdominal pain with n/v, had elevated lipase and GS- consistent with gallstone pancreatitis npo for now, IV fluids 125 ml/h, medical management also had fever and on antibiotics surgery will evaluate patient will get MRCP to assess if choledocholithiasis (2) Cholecystitis with cholelithiasis: Code(s): K80.10 - Calculus of gallbladder with chronic cholecystitis without obstruction Status: Acute (3) Nausea and vomiting in adult: Code(s): R11.2 - Nausea with vomiting, unspecified Status: Acute (4) Elevated liver enzymes: Code(s): R74.8 - Abnormal levels of other serum enzymes Status: Acute Assessment and Plan: could be from GS pancreatitis, pending mrcp also noted fatty liver will get also hepatitis panel and trend lft (5) Fever: Code(s): R50.9 - Fever, unspecified Status: Acute Assessment and Plan: probably from pancreatitis/cholecystitis but will check also for covid/flu (6) Epigastric pain: Code(s): R10.13 - Epigastric pain Status: Acute (7) Delivery by section: Status: Acute Assessment and Plan: noted hematoma in abdomen- managed by primary team h/h stable but continue to monitor (8) Fatty liver: Code(s): K76.0 - Fatty (change of) liver, not elsewhere classified Status: Acute (9) Hematoma of abdominal wall: Code(s): S30.11XA - Contusion of abdominal wall, initial encounter Status: Acute GI Consult Note Consult date/time: 08/06/25 15:39 Reason for consult: GS pancreatitis, elevated liver enzymes HPI: iLndsey Swan is a 34 year old female with morbid obesity, 4 weeks s/p . She had new onset of pain between her shoulder blades then moved to her epigastric last night, also n/v x1 and pain was moderate. She went to another community ED, labs reviewed- TB 1.9, ast 142. alt 94, lipase 3036, hemoglobin 9.6. CT of chest was OK, CT of abdomen showed a large intramuscular hematoma then transferred here to OB service at [facility]. She had preeclampsia in , and able to stop antihypertensives about 1 week . She just had fever 101.5 F but no more nausea and pain almost gone, she has sinus drainage. US here shows cholelithiasis with gallbladder wall thickening and trace pericholecystic fluid. Also some hepatomegaly with fatty infiltration of the liver. Denies history of liver or GB disease, no similar pain previously, started on abx and she is NPO, also getting IV fluids. Review of Systems Constitutional: Comments: fever Eyes: Eyes: Denies blurry vision ENT: Reports Normal hearing present Cardiovascular: Cardiovascular: Denies chest pain Respiratory: Comments: sinus drainage Gastrointestinal: Gastrointestinal: Reports abdominal pain and Reports nausea Genitourinary: Comments: s/p c section Musculoskeletal: Musculoskeletal: Denies arthralgias Integumentary/Breasts: Skin/Breast: Denies rash Neurologic: Denies Abnormal speech present Psychiatric: Psychiatric: Denies behavioral changes [facility] Past Medical History Medical History (Updated 08/06/25 @ 15:45 by Tim López MD) Hematoma of abdominal wall Fatty liver Epigastric pain Fever Elevated liver enzymes Nausea and vomiting in adult Gallstone pancreatitis Obesity, Class III, BMI 40-49.9 (morbid obesity) Proteinuria Pre-eclampsia Gestational diabetes In vitro fertilization Surgical History Surgical History Hx of section No significant past surgical history Family History Family History Father Cancer, Onset Age: 1 Cancer of the eye- left eye removed Mother Hypertension Social History Social History Smoking status: Never smoker Second hand tobacco smoke exposure: No Alcohol intake: never Substance use: never Lack of Transportation: No Lack of Food: Never True Current Housing: I Have Housing Concerned About Future Housing: No Difficulty Paying Gas/Electric Bills: No Difficulty Paying for Meds: No Currently Unemployed: No Education: High School Diploma/GED Difficulty w/ Childcare or Family Care: No Living arrangements: with family Occupation/Education: occupation Additional occupation/education comments: [employer] Gender identity (if verbalized by the patient): Female Spiritual care concerns: No Meds Home Medications and Allergies Home Medications ?Medication ?Instructions ?Recorded ?Confirmed ?Type docosahexaenoic acid 200 mg 200 mg PO DAILY 01/06/25 08/06/25 History capsule ( DHA) famotidine 20 mg tablet (Acid 20 mg PO DAILY 08/06/25 08/06/25 History Controller) Allergies Allergy/AdvReac Type Severity Reaction Status Date / Time fluconazole (From Diflucan) Allergy Rash Verified 08/06/25 12:03 Vital Signs Vital Signs - 24 hr 08/06/25 09:05 08/06/25 09:05 08/06/25 09:05 Temperature 98.9 F Pulse Rate 89 89 Respiratory Rate 20 Blood Pressure 105/29 L 105/29 L Pulse Oximetry 100 Oxygen Delivery Room Air 08/06/25 09:06 08/06/25 09:11 08/06/25 09:16 Temperature Pulse Rate 88 Respiratory Rate Blood Pressure 104/44 L Pulse Oximetry 100 100 98 Oxygen Delivery 08/06/25 09:21 08/06/25 09:26 08/06/25 09:31 Temperature Pulse Rate Respiratory Rate Blood Pressure Pulse Oximetry 100 100 100 Oxygen Delivery 08/06/25 09:36 08/06/25 09:41 08/06/25 09:46 Temperature Pulse Rate Respiratory Rate Blood Pressure Pulse Oximetry 100 99 99 Oxygen Delivery 08/06/25 09:51 08/06/25 09:56 08/06/25 10:00 Temperature Pulse Rate 88 Respiratory Rate Blood Pressure 111/47 L Pulse Oximetry 100 99 Oxygen Delivery 08/06/25 10:01 08/06/25 10:01 08/06/25 10:06 Temperature Pulse Rate Respiratory Rate 20 Blood Pressure 111/47 L Pulse Oximetry 99 99 99 Oxygen Delivery 08/06/25 10:11 08/06/25 10:16 08/06/25 10:21 Temperature Pulse Rate Respiratory Rate Blood Pressure Pulse Oximetry 100 99 100 Oxygen Delivery 08/06/25 10:26 08/06/25 10:31 08/06/25 10:36 Temperature Pulse Rate Respiratory Rate Blood Pressure Pulse Oximetry 100 100 100 Oxygen Delivery 08/06/25 10:41 08/06/25 12:00 08/06/25 12:01 Temperature Pulse Rate 90 Respiratory Rate Blood Pressure 102/37 L Pulse Oximetry 100 99 Oxygen Delivery 08/06/25 12:05 08/06/25 12:10 08/06/25 12:14 Temperature Pulse Rate Respiratory Rate Blood Pressure Pulse Oximetry 100 100 100 Oxygen Delivery 08/06/25 15:20 08/06/25 15:20 08/06/25 15:25 Temperature 101.7 F H Pulse Rate 101 H 103 H Respiratory Rate 16 Blood Pressure 119/51 L 119/51 L Pulse Oximetry 100 100 100 Oxygen Delivery 08/06/25 15:30 Temperature Pulse Rate Respiratory Rate Blood Pressure Pulse Oximetry 100 Oxygen Delivery Exam Const: Nutritional Appearance: obese Orientation/consciousness: patient oriented x3 Other: Well-developed, well-nourished female in no acute distress. HENMT: Face/Nose/Sinus: Normal nares present Eyes: Sclera: sclerae normal Neck: Neck: supple Resp: Effort & Inspection: normal respiratory effort Auscultation: no rales Cardio: Rate: regular rate GI: Other: ABD: Soft, nontender, nondistended. No RUQ tenderness, no epigastric tenderness. Incision is clean, dry and intact and looks great. Some dependent edema in the panniculus. : Other: Deferred. Back/Spine/Pelvis: Other: Back: No CVA tenderness. Skin: Other: Skin: No lesions, rashes or ulcers noted. Neuro: Speech: normal speech Motor exam (neuro): 5/5 motor strength present throughout and Normal motor muscle tone present throughout Extrem: Other: Extremities: nontender with no edema Psych: Affect: normal affect Results Labs 08/06/25 10:40 Labs: Short CBC 08/06/25 Range/Units 10:40 Hgb 9.2 L (12.0-15.0) g/dL Hct 30.7 L (37.0-47.0) %
[2025-08-06] MEDS: KCL 40 MEQ/0.9% SOD CHL 1,000 ML 125 ML IV CONT (15:56)
[2025-08-06] MEDS: ACETAMINOPHEN 500 MG TABLET 1000 MG PO (16:04)
[2025-08-06 16:49] LABS: Influenza A QL RT-PCR Negative (Negative); Influenza B QL RT-PCR Negative (Negative); RSV RNA, RT-PCR Negative (Negative); SARS-CoV-2 RNA PCR Negative (Negative)
--- NOTE | 2025-08-06 17:05 | PC.NURSE ---
Pt remains pain free this shift. No nausea or vomiting. Informed COVID, Flu, and RSV tests were negative. MRI screening form given to pt. Informed of NPO after MN for MRI tomorrow around noon.
[2025-08-07] MEDS: LACTATED RINGERS 1,000 ML 125 ML (01:30)
[2025-08-07] MEDS: PIPERACILLIN/TAZOBACTAM SOD 3.375 GM in SODIUM CHLORIDE 0.9% IV 50 ML 100 ML IVPB ×2 (01:30→07:43)
[2025-08-07 04:00] VITALS: TEMP 36.8
[2025-08-07 04:27] LABS: Hematocrit 27.5 % (37.0-47.0); Hemoglobin 8.2 g/dL (12.0-15.0); Mean Corpuscular HGB Conc 29.8 g/dl (32-36); Mean Corpuscular Hemoglobin 23.0 pg (26-34); Mean Corpuscular Volume 77.0 fl (80-100); Platelet Count Result 209 k/mm3 (150-375); Red Blood Count 3.57 M/mm3 (4.2-5.4); White Blood Count 4.1 K/mm3 (4.5-10.0)
[2025-08-07 04:52] LABS: Alanine Aminotransferase 119 U/L (6-35); Albumin Level 3.5 g/dL (3.5-5.1); Alkaline Phosphatase 277 U/L (38-126); Anion Gap 4 mmol/L (4-12); Aspartate Amino Transferase 90 U/L (14-36); Bilirubin,Total 0.7 mg/dL (0.2-1.3); Blood Urea Nitrogen 5 mg/dL (7-17); Calcium 8.8 mg/dL (8.4-10.2); Carbon Dioxide 24 mmol/L (22-30); Chloride 111 mmol/L (98-107); Estimated CRCL calculation 106 ml/min; Estimated Glomerular Filt Rate > 60; Glucose 107 mg/dL (65-110); Potassium 4.2 mmol/L (3.4-5.0); Sodium 139 mmol/L (137-145); Total Protein 6.3 g/dL (6.3-8.2)
[2025-08-07 05:38] VITALS: BP 118/54; PULSE 101
[2025-08-07 05:43] LABS: Hepatitis B Surface Antigen Negative (Negative)
[2025-08-07 05:49] LABS: HAV RESULT Negative (Negative); Hepatitis B Core IgM Result Negative (Negative)
[2025-08-07 07:48] VITALS: BP 105/37; PULSE 94; O2SAT 98
[2025-08-07 07:49] VITALS: BP 105/39; PULSE 88; RESP 16; TEMP 37.5; O2SAT 100
[2025-08-07 07:53] VITALS: PULSE 89; O2SAT 99
--- NOTE | 2025-08-07 08:24 | P.CONGS_ITS ---
Assessment and Plan Assessment and plan (1) Gallstone pancreatitis: Code(s): K85.10 - Biliary acute pancreatitis without necrosis or infection Status: Acute Assessment and Plan: Exam completely benign, continue serial exams and labs, await ERCP (2) Cholecystitis with cholelithiasis: Code(s): K80.10 - Calculus of gallbladder with chronic cholecystitis without obstruction Status: Acute Assessment and Plan: exam benign this morning, awaiting ERCP, discussed with patient will need interval cholecystectomy, timing to be determined (3) Hematoma of abdominal wall: Code(s): S30.11XA - Contusion of abdominal wall, initial encounter Status: Acute Assessment and Plan: stable, management per OB team History of Present Illness Consult details Consult date: 08/07/25 Reason for consult: abdominal pain Requesting physician: Chiki Pereyra MD Narrative: The patient is a 34-year-old female presenting with epigastric abdominal pain radiating up to her chest, nausea and vomiting. The patient is 4 weeks status post . She reports no previous similar symptomatology. Workup, including imaging, is significant for likely biliary pancreatitis, cholecystitis, cholelithiasis. The patient also has an abdominal wall hematoma from the . Upon evaluation today, the patient reports that she is largely asymptomatic and feels pretty normal. Review of Systems 2 Review of Systems: All systems reviewed & are unremarkable except as noted in HPI and below PMFSH Past Medical History Medical History Hematoma of abdominal wall Fatty liver Epigastric pain Fever Elevated liver enzymes Nausea and vomiting in adult Gallstone pancreatitis Obesity, Class III, BMI 40-49.9 (morbid obesity) Proteinuria Pre-eclampsia Gestational diabetes In vitro fertilization Surgical History Surgical History Hx of section No significant past surgical history Family History Family History Father Cancer, Onset Age: 1 Cancer of the eye- left eye removed Mother Hypertension Social History Social History Smoking status: Never smoker Second hand tobacco smoke exposure: No Alcohol intake: never Substance use: never Lack of Transportation: No Lack of Food: Never True Current Housing: I Have Housing Concerned About Future Housing: No Difficulty Paying Gas/Electric Bills: No Difficulty Paying for Meds: No Currently Unemployed: No Education: High School Diploma/GED Difficulty w/ Childcare or Family Care: No Living arrangements: with family Occupation/Education: occupation Additional occupation/education comments: [employer], [employer] Gender identity (if verbalized by the patient): Female Spiritual care concerns: No Meds Home Medications and Allergies Home Medications ?Medication ?Instructions ?Recorded ?Confirmed ?Type docosahexaenoic acid 200 mg 200 mg PO DAILY 01/06/25 1 10/07/24 History capsule ( DHA) famotidine 20 mg tablet (Acid 20 mg PO DAILY 08/06/25 08/06/25 History Controller) Allergies Allergy/AdvReac Type Severity Reaction Status Date / Time fluconazole (From Diflucan) Allergy Rash Verified 08/06/25 12:03 Vital Signs Vital Signs - 24 hr 08/06/25 09:05 08/06/25 09:05 08/06/25 09:05 Temperature 37.2 C Pulse Rate 89 89 Respiratory Rate 20 Blood Pressure 105/29 L 105/29 L Pulse Oximetry 100 Oxygen Delivery Room Air 08/06/25 09:06 08/06/25 09:11 08/06/25 09:16 Temperature Pulse Rate 88 Respiratory Rate Blood Pressure 104/44 L Pulse Oximetry 100 100 98 Oxygen Delivery 08/06/25 09:21 08/06/25 09:26 08/06/25 09:31 Temperature Pulse Rate Respiratory Rate Blood Pressure Pulse Oximetry 100 100 100 Oxygen Delivery 08/06/25 09:36 08/06/25 09:41 08/06/25 09:46 Temperature Pulse Rate Respiratory Rate Blood Pressure Pulse Oximetry 100 99 99 Oxygen Delivery 08/06/25 09:51 08/06/25 09:56 08/06/25 10:00 Temperature Pulse Rate 88 Respiratory Rate Blood Pressure 111/47 L Pulse Oximetry 100 99 Oxygen Delivery 08/06/25 10:01 08/06/25 10:01 08/06/25 10:06 Temperature Pulse Rate Respiratory Rate 20 Blood Pressure 111/47 L Pulse Oximetry 99 99 99 Oxygen Delivery 08/06/25 10:11 08/06/25 10:16 08/06/25 10:21 Temperature Pulse Rate Respiratory Rate Blood Pressure Pulse Oximetry 100 99 100 Oxygen Delivery 08/06/25 10:26 08/06/25 10:31 08/06/25 10:36 Temperature Pulse Rate Respiratory Rate Blood Pressure Pulse Oximetry 100 100 100 Oxygen Delivery 08/06/25 10:41 08/06/25 12:00 08/06/25 12:01 Temperature Pulse Rate 90 Respiratory Rate Blood Pressure 102/37 L Pulse Oximetry 100 99 Oxygen Delivery 08/06/25 12:01 08/06/25 12:05 08/06/25 12:10 Temperature 37.4 C Pulse Rate Respiratory Rate 18 Blood Pressure Pulse Oximetry 100 100 Oxygen Delivery 08/06/25 12:14 08/06/25 15:20 08/06/25 15:20 Temperature 38.7 C H Pulse Rate 101 H 103 H Respiratory Rate 16 Blood Pressure 119/51 L 119/51 L Pulse Oximetry 100 100 100 Oxygen Delivery 08/06/25 15:25 08/06/25 15:30 08/06/25 16:04 Temperature 38.7 C H Pulse Rate Respiratory Rate Blood Pressure Pulse Oximetry 100 100 Oxygen Delivery 08/06/25 17:03 08/06/25 17:03 08/06/25 20:00 Temperature 37.9 C H 37.9 C H 37.1 C Pulse Rate Respiratory Rate Blood Pressure Pulse Oximetry Oxygen Delivery 08/06/25 20:04 08/07/25 04:00 08/07/25 05:38 Temperature 36.8 C Pulse Rate 85 101 H Respiratory Rate Blood Pressure 116/57 L 118/54 L Pulse Oximetry Oxygen Delivery 08/07/25 07:48 08/07/25 07:49 08/07/25 07:53 Temperature 37.5 C Pulse Rate 94 88 Respiratory Rate 16 Blood Pressure 105/37 L 105/39 L Pulse Oximetry 98 100 99 Oxygen Delivery Exam 2 Const: General: cooperative, comfortable, no acute distress and obese HENMT: Head: normal to inspection, normocephalic and atraumatic Eyes: General: appearance normal, both eyes and all related structures Neck: Neck: normal visual inspection, full ROM and no lymphadenopathy Resp: Auscultation: clear to auscultation bilaterally Cardio: Rate: regular rate Rhythm: regular rhythm GI: Inspection: normal to inspection, distended and incision GI Palp: Yes abdominal tenderness, Yes Soft to palpation, No Guarding due to palpation present (GI) and No Rigid due to palpation Skin: General skin exam: normal color and no rashes or lesions noted Neuro: General: patient oriented x3 and CN's II-XI intact bilaterally Extrem: General: normal to inspection and full ROM Results Labs 08/07/25 04:15 08/07/25 04:15 Labs: Abnormal lab results 08/06/25 08/07/25 Range/Units 10:40 04:15 WBC 4.1 L (4.5-10.0) K/mm3 RBC 3.57 L (4.2-5.4) M/mm3 Hgb 9.2 L 8.2 L (12.0-15.0) g/dL Hct 30.7 L 27.5 L (37.0-47.0) % MCV 77.0 L (80-100) fl MCH 23.0 L (26-34) pg MCHC 29.8 L (32-36) g/dl RDW 14.7 H (11.5-14.5) % Chloride 111 H (98-107) mmol/L BUN 5 L (7-17) mg/dL AST 90 H (14-36) U/L ALT 119 H (6-35) U/L Alkaline Phosphatase 277 H (38-126) U/L Diabetes panel 08/07/25 Range/Units 04:15 Sodium 139 (137-145) mmol/L Potassium 4.2 (3.4-5.0) mmol/L Chloride 111 H (98-107) mmol/L Carbon Dioxide 24 (22-30) mmol/L BUN 5 L (7-17) mg/dL Creatinine 0.81 (0.7-1.0) mg/dL Glucose 107 (65-110) mg/dL Calcium 8.8 (8.4-10.2) mg/dL AST 90 H (14-36) U/L ALT 119 H (6-35) U/L Alkaline Phosphatase 277 H (38-126) U/L Total Protein 6.3 (6.3-8.2) g/dL Albumin 3.5 (3.5-5.1) g/dL Calcium panel 08/07/25 Range/Units 04:15 Calcium 8.8 (8.4-10.2) mg/dL Albumin 3.5 (3.5-5.1) g/dL Pituitary panel 08/07/25 Range/Units 04:15 Sodium 139 (137-145) mmol/L Potassium 4.2 (3.4-5.0) mmol/L Chloride 111 H (98-107) mmol/L Carbon Dioxide 24 (22-30) mmol/L BUN 5 L (7-17) mg/dL Creatinine 0.81 (0.7-1.0) mg/dL Glucose 107 (65-110) mg/dL Calcium 8.8 (8.4-10.2) mg/dL Adrenal panel 08/07/25 Range/Units 04:15 Sodium 139 (137-145) mmol/L Potassium 4.2 (3.4-5.0) mmol/L Chloride 111 H (98-107) mmol/L Carbon Dioxide 24 (22-30) mmol/L BUN 5 L (7-17) mg/dL Creatinine 0.81 (0.7-1.0) mg/dL Glucose 107 (65-110) mg/dL Calcium 8.8 (8.4-10.2) mg/dL Total Bilirubin 0.7 (0.2-1.3) mg/dL AST 90 H (14-36) U/L ALT 119 H (6-35) U/L Alkaline Phosphatase 277 H (38-126) U/L Total Protein 6.3 (6.3-8.2) g/dL Albumin 3.5 (3.5-5.1) g/dL All other labs normal. Imaging Abdomen CT scan report/results: report reviewed Abdominal ultrasound report/results: report reviewed
[2025-08-07] MEDS: DEXTROSE 5%/LACTATED RINGERS 1,000 ML 125 ML IV CONT (08:33)
--- NOTE | 2025-08-07 09:57 | P.PNOB_ITS ---
OB - PN: Subj Subjective Date/time seen: 08/07/25 09:57 Narrative: No pain. She is scheduled for MRI today per GI and surgery. OB - PN: Obj Data Labs 08/07/25 04:15 08/07/25 04:15 Labs: Laboratory Results - last 24 hr 08/06/25 08/06/25 08/07/25 10:40 15:54 04:15 WBC 4.1 L RBC 3.57 L Hgb 9.2 L 8.2 L Hct 30.7 L 27.5 L MCV 77.0 L MCH 23.0 L MCHC 29.8 L RDW 14.7 H Plt Count 209 MPV 10.2 Sodium 139 Potassium 4.2 Chloride 111 H Carbon Dioxide 24 Anion Gap 4 BUN 5 L Creatinine 0.81 Estim Creat Clear Calc 106 Estimated GFR > 60 Glucose 107 Calcium 8.8 Total Bilirubin 0.7 AST 90 H ALT 119 H Alkaline Phosphatase 277 H Total Protein 6.3 Albumin 3.5 Hepatitis A IgM Ab Negative Hep Bs Antigen Negative Hep B Core IgM Ab Negative Hepatitis C Ab Screen Negative Influenza A (RT-PCR) Negative Influenza B (RT-PCR) Negative RSV (RT-PCR) Negative SARS-CoV-2 RNA (RT-PCR) Negative Imaging Radiologist's impression: Impressions Upper Quadrant Ultrasound 08/06/25 10:30 IMPRESSION: 1: Cholelithiasis with gallbladder wall thickening and trace pericholecystic fluid. Findings compatible with cholecystitis. Clinically correlate. 2: Hepatomegaly with fatty infiltration of the liver. OB - PN A/P Plan Comments: A: gallstone pancreatitis. P: MRI today as above. Very much appreciate GI and surgery input! Exam 2 Narrative: AVSS ABD soft, nontender, fundus firm. Incision c/d/i. EXT nontender
--- NOTE | 2025-08-07 14:39 | WPDGIPROGNO ---
Progress Note: A&P Assessment and Plan (1) Gallstone pancreatitis: Code(s): K85.10 - Biliary acute pancreatitis without necrosis or infection Status: Acute Assessment and Plan: no more pain or nausea MRCP just reviewed and normal bile duct 5 mm, no stones and also normal pancreatic duct, + GS she can go home later today with low fat diet and plan is outpatient cholecystectomy, timing per surgery team she can also follow-up in office in few weeks because fatty liver with elevated liver enzymes but this is in setting of GB disease (2) Cholecystitis with cholelithiasis: Code(s): K80.10 - Calculus of gallbladder with chronic cholecystitis without obstruction Status: Acute (3) Elevated liver enzymes: Code(s): R74.8 - Abnormal levels of other serum enzymes Status: Acute (4) Epigastric pain: Code(s): R10.13 - Epigastric pain Status: Acute (5) Nausea and vomiting in adult: Code(s): R11.2 - Nausea with vomiting, unspecified Status: Acute (6) Obesity, Class III, BMI 40-49.9 (morbid obesity): Code(s): E66.01 - Morbid (severe) obesity due to excess calories Status: Acute (7) Fatty liver: Code(s): K76.0 - Fatty (change of) liver, not elsewhere classified Status: Acute Subjective Date/time seen: 08/07/25 14:39 Interval history: no more pain, doing much better she will start liquid diet and plan is to go home and surgery to plan cholecystectomy as outpatient Review of Systems Review of Systems: All systems reviewed & are unremarkable except as noted in HPI and below Exam Const: General: cooperative, comfortable, no acute distress and obese HENMT: Head: normal to inspection, normocephalic and atraumatic Eyes: General: appearance normal, both eyes and all related structures Neck: Neck: normal visual inspection, full ROM and no lymphadenopathy Resp: Auscultation: clear to auscultation bilaterally Cardio: Rate: regular rate Rhythm: regular rhythm GI: Inspection: normal to inspection, distended and incision GI Palp: Yes abdominal tenderness, Yes Soft to palpation, No Guarding due to palpation present (GI) and No Rigid due to palpation Skin: General skin exam: normal color and no rashes or lesions noted Neuro: General: patient oriented x3 and CN's II-XI intact bilaterally Extrem: General: normal to inspection and full ROM Objective Data Vital Signs Vital Signs: Vital Signs - 24 hr 08/06/25 15:20 08/06/25 15:20 08/06/25 15:25 Temperature 101.7 F H Pulse Rate 101 H 103 H Respiratory Rate 16 Blood Pressure 119/51 L 119/51 L Pulse Oximetry 100 100 100 Oxygen Delivery 08/06/25 15:30 08/06/25 16:04 08/06/25 17:03 Temperature 101.7 F H 100.3 F H Pulse Rate Respiratory Rate Blood Pressure Pulse Oximetry 100 Oxygen Delivery 08/06/25 17:03 08/06/25 20:00 08/06/25 20:04 Temperature 100.3 F H 98.7 F Pulse Rate 85 Respiratory Rate Blood Pressure 116/57 L Pulse Oximetry Oxygen Delivery 08/07/25 04:00 08/07/25 05:38 08/07/25 07:48 Temperature 98.2 F Pulse Rate 101 H 94 Respiratory Rate Blood Pressure 118/54 L 105/37 L Pulse Oximetry 98 Oxygen Delivery 08/07/25 07:49 08/07/25 07:53 08/07/25 08:00 Temperature 99.5 F Pulse Rate 88 Respiratory Rate 16 Blood Pressure 105/39 L Pulse Oximetry 100 99 Oxygen Delivery Room Air Intake/Output Intake/Output: Intake & Output 08/04/25 08/05/25 08/06/25 08/07/25 23:59 23:59 23:59 23:59 Intake Total 1203 1000 Output Total 800 650 Balance 403 350 Meds/Results Medications: Active Medications Generic Name Dose Route Start Last Admin Trade Name Freq PRN Reason Stop Dose Admin Acetaminophen 1,000 mg 08/06/25 15:35 08/06/25 16:04 Acetaminophen 500 Mg Tablet PO 1,000 mg Q6H PRN Administration Fever or Pain Piperacillin Sod/Tazobactam 50 mls @ 100 mls/hr 08/06/25 13:00 08/07/25 07:43 Sod 3.375 gm/ Sodium Chloride IVPB 100 mls/hr Q6H YOHANNES Administration Dextrose/Lactated Ringer's 1,000 mls @ 125 mls/hr 08/07/25 07:35 08/07/25 08:33 Dextrose 5%/Lactated Ringers IV CONT 125 mls/hr .Q8H YOHANNES Administration Radiology Results: ITS Impressions Upper Quadrant Ultrasound 08/06/25 10:30 IMPRESSION: 1: Cholelithiasis with gallbladder wall thickening and trace pericholecystic fluid. Findings compatible with cholecystitis. Clinically correlate. 2: Hepatomegaly with fatty infiltration of the liver. MRCP 08/07/25 14:18 IMPRESSION: 1. Hepatomegaly and splenomegaly. Focal fatty infiltration of liver. 2. Multiple small gallstones in the gallbladder without edema of the wall of the gallbladder consistent with cholecystitis. Extrahepatic bile ducts are normal in caliber. No choledocholithiasis is seen. 3. Pancreatic duct is normal in caliber. No evidence of peripancreatic inflammation or effusion is seen. Labs Labs: Laboratory Results - last 24 hr 08/06/25 08/07/25 15:54 04:15 WBC 4.1 L RBC 3.57 L Hgb 8.2 L Hct 27.5 L MCV 77.0 L MCH 23.0 L MCHC 29.8 L RDW 14.7 H Plt Count 209 MPV 10.2 Sodium 139 Potassium 4.2 Chloride 111 H Carbon Dioxide 24 Anion Gap 4 BUN 5 L Creatinine 0.81 Estim Creat Clear Calc 106 Estimated GFR > 60 Glucose 107 Calcium 8.8 Total Bilirubin 0.7 AST 90 H ALT 119 H Alkaline Phosphatase 277 H Total Protein 6.3 Albumin 3.5 Hepatitis A IgM Ab Negative Hep Bs Antigen Negative Hep B Core IgM Ab Negative Hepatitis C Ab Screen Negative Influenza A (RT-PCR) Negative Influenza B (RT-PCR) Negative RSV (RT-PCR) Negative SARS-CoV-2 RNA (RT-PCR) Negative
== END 2025-08-07 15:30 | disposition home or self-care (01) ==
PROVIDERS: Internal Medicine Gastroenterology; Admitting Provider Obstetrics & Gynecology; Visit Provider Obstetrics & Gynecology
DX: O99.63 Diseases of the digestive system complicating the puerperium (principal); K80.10 Calculus of gallbladder with chronic cholecystitis without obstruction; K85.10 Biliary acute pancreatitis without necrosis or infection; K76.0 Fatty (change of) liver, not elsewhere classified; O90.2 Hematoma of obstetric wound; R74.8 Abnormal levels of other serum enzymes; R50.9 Fever, unspecified; O99.215 Obesity complicating the puerperium; E66.01 Morbid (severe) obesity due to excess calories; Z20.822 Contact with and (suspected) exposure to COVID-19
CPT/HCPCS: 36415; 74183; 76376; 76705; 80053; 80074; 85014; 85018; 85027; 87637; 96365; 96366; 96367; 96374; A9270; A9577; G0378; G0379; J2543; J3475; J7120; J7121